=== PATIENT | male | born 1975 | race African-American/Black ===

== ENCOUNTER 2016-07-08 01:02 | Emergency (ER) | payer MEDICAID ==
[~2016-07-08] VITALS: Ht 177.8 cm; Wt 89.7 kg
[~2016-07-08 01:02] MED LIST: AMOX1TAB12 PO; ATEN25TA PO; CLIN300C93 PO; CYCL-259 PO; DIPH25CA61 PO; GABA-827 PO; HYDR-882 PO; HYDR25TA6 PO; OXYC-302 PO; OXYC5TAB3 PO; PRED10TA; SIMV20TA PO; SIMV20TA3 PO; WARF6TAB7 PO
[2016-07-08] MEDS ORDERED: PROMETHAZINE 25 MG/ML, 1ML ONE (01:51)
[2016-07-08] MEDS ORDERED: MORPHINE SULFATE 4 MG/ML, 1ML ONE ×2 (01:51→03:04)
[2016-07-08] MEDS ORDERED: ONDANSETRON 2MG/ML, 2ML ONE (01:52)
[2016-07-08] MEDS ORDERED: PROMETHAZINE 25 MG/ML, 1ML IM ONE (02:00)
[2016-07-08] MEDS ORDERED: SODIUM CHLORIDE 0.9% 1,000ML IVBOLUS ONE (02:00)
[2016-07-08] MEDS ORDERED: ONDANSETRON 2MG/ML, 2ML IVPush ONE (02:00)
[2016-07-08] MEDS: MORPHINE SULFATE 4 MG/ML, 1ML IVPush PRN ×2 (02:07→03:08)
[2016-07-08 02:22] LABS: HEMOGLOBIN 11.1 g/dL (13.7-18.0)
[2016-07-08 02:30] LABS: ASPARTATE AMINO TRANSFERASE 12 U/L (15-37); BLOOD UREA NITROGEN 11 mg/dL (7-18)
[2016-07-08 02:41] LABS: ANISOCYTOSIS 1+; POLYCHROMASIA 1+
[2016-07-08 02:42] LABS: HYPOCHROMIA 1+
[2016-07-08] MEDS ORDERED: DIPHENHYDRAMINE 25 MG CAPSULE ONE (03:04)
[2016-07-08] MEDS ORDERED: METOCLOPRAMIDE 5 MG/ML, 2ML ONE (03:05)
[2016-07-08] MEDS ORDERED: DIPHENHYDRAMINE 25 MG CAPSULE PO ONE (03:30)
[2016-07-08] MEDS ORDERED: METOCLOPRAMIDE 5 MG/ML, 2ML IVPush ONE (03:30)
[2016-07-08 05:29] VITALS: BP 138/92
== END 2016-07-08 05:32 | disposition home or self-care (01) ==
LOC: ED 05:26
DX: G43.019 Migraine without aura, intractable, without status migrainosus (principal); R10.84 Generalized abdominal pain; G89.29 Other chronic pain; I10 Essential (primary) hypertension; E78.5 Hyperlipidemia, unspecified; Z86.73 Personal history of transient ischemic attack (TIA), and cerebral infarction without residual deficits; Z88.8 Allergy status to other drugs, medicaments and biological substances; Z90.89 Acquired absence of other organs
CPT/HCPCS: 36415; 80053; 83690; 85025; 85610; 96361; 96372; 96374; 96375; 96376; 99284; J2405; J2550; J2765; J7030; Q0163

== ENCOUNTER 2016-07-12 22:30 | Emergency (ER) | payer MEDICAID ==
[~2016-07-12] VITALS: Ht 180.3 cm; Wt 90.3 kg
[2016-07-12] MEDS ORDERED: MORPHINE SULFATE 4 MG/ML, 1ML IVPush PRN (23:30)
[2016-07-12] MEDS ORDERED: SODIUM CHLORIDE 0.9% 1,000ML IVBOLUS ONE (23:30)
[2016-07-12] MEDS ORDERED: DIPHENHYDRAMINE 50 MG/ML, 1ML IVPush ONE (23:30)
[2016-07-12] MEDS ORDERED: METOCLOPRAMIDE 5 MG/ML, 2ML IVPush ONE (23:30)
[2016-07-13] MEDS ORDERED: METOCLOPRAMIDE 5 MG/ML, 2ML ONE (01:59)
[2016-07-13] MEDS ORDERED: DIPHENHYDRAMINE 50 MG/ML, 1ML ONE (01:59)
[2016-07-13] MEDS ORDERED: DEXAMETHASONE 4 MG/ML, 1ML ONE (02:23)
[2016-07-13] MEDS ORDERED: SODIUM CHLORIDE 0.9%, 500ML IVBOLUS ONE (02:30)
[2016-07-13] MEDS ORDERED: DEXAMETHASONE 4 MG/ML, 1ML IVPush ONE (02:30)
[2016-07-13 03:16] VITALS: BP 131/74
== END 2016-07-13 03:18 | disposition home or self-care (01) ==
LOC: ED 23:59
DX: G89.29 Other chronic pain (principal); G43.909 Migraine, unspecified, not intractable, without status migrainosus; R10.84 Generalized abdominal pain; E78.5 Hyperlipidemia, unspecified; I10 Essential (primary) hypertension; I11.9 Hypertensive heart disease without heart failure; I73.9 Peripheral vascular disease, unspecified
CPT/HCPCS: 96361; 96374; 96375; 99284; J1100; J1200; J2765; J7040

== ENCOUNTER 2016-07-24 19:36 | Emergency (ER) | payer MEDICAID ==
[~2016-07-24] VITALS: Ht 177.8 cm; Wt 90.1 kg
[2016-07-24 19:51] VITALS: BP 115/77
[2016-07-24] MEDS ORDERED: HYDROmorphone 1 MG/ML, 1ML ONE ×2 (20:48→21:59)
[2016-07-24] MEDS ORDERED: HYDROmorphone 1 MG/ML, 1ML IM ONE ×2 (21:00→22:00)
== END 2016-07-24 22:40 | disposition home or self-care (01) ==
LOC: ED 22:30
DX: S22.080A Wedge compression fracture of T11-T12 vertebra, initial encounter for closed fracture (principal); R55 Syncope and collapse; I10 Essential (primary) hypertension; E78.5 Hyperlipidemia, unspecified; G43.909 Migraine, unspecified, not intractable, without status migrainosus; I11.9 Hypertensive heart disease without heart failure; I73.9 Peripheral vascular disease, unspecified; F12.10 Cannabis abuse, uncomplicated; W18.39XA Other fall on same level, initial encounter; Y93.89 Activity, other specified; Y92.89 Other specified places as the place of occurrence of the external cause; Y99.8 Other external cause status; Z86.73 Personal history of transient ischemic attack (TIA), and cerebral infarction without residual deficits; Z87.891 Personal history of nicotine dependence
CPT/HCPCS: 72110; 72220; 73030; 93005; 96372; 99284; J1170

== ENCOUNTER 2016-07-30 23:53 | Emergency (ER) | payer MEDICAID ==
[~2016-07-30] VITALS: Ht 177.8 cm; Wt 91.4 kg
[2016-07-31] MEDS ORDERED: KETOROLAC 30 MG/1 ML IM ONE (01:00)
[2016-07-31] MEDS ORDERED: KETOROLAC 30 MG/1 ML ONE (01:03)
[2016-07-31 01:46] VITALS: BP 137/85
== END 2016-07-31 01:48 | disposition home or self-care (01) ==
LOC: ED 23:59
DX: M54.41 Lumbago with sciatica, right side (principal); E78.5 Hyperlipidemia, unspecified; I11.9 Hypertensive heart disease without heart failure; Z87.891 Personal history of nicotine dependence; Z86.73 Personal history of transient ischemic attack (TIA), and cerebral infarction without residual deficits; Z88.6 Allergy status to analgesic agent
CPT/HCPCS: 96372; 99283; J1885

== ENCOUNTER 2016-08-11 18:08 | Emergency (ER) | payer MEDICAID ==
[~2016-08-11] VITALS: Ht 177.8 cm; Wt 87.3 kg
[2016-08-11] MEDS ORDERED: SODIUM CHLORIDE FLUSH 10ML SYR IVF ONE (18:30)
[2016-08-11 18:55] LABS: HEMOGLOBIN 12.1 g/dL (13.7-18.0)
[2016-08-11] MEDS ORDERED: KETOROLAC 30 MG/1 ML IM ONE (19:00)
[2016-08-11] MEDS ORDERED: METHOCARBAMOL 750 MG TABLET PO ONE (19:00)
[2016-08-11 19:02] LABS: BLOOD UREA NITROGEN 16 mg/dL (7-18)
[2016-08-11 19:08] LABS: IS PT STATUS REG ER OR PRE ER? YES
[2016-08-11] MEDS ORDERED: KETOROLAC 30 MG/1 ML ONE (19:34)
[2016-08-11] MEDS ORDERED: METHOCARBAMOL 750 MG TABLET ONE (19:34)
[2016-08-11 20:10] VITALS: BP 130/91
== END 2016-08-11 20:13 | disposition home or self-care (01) ==
LOC: ED 20:00
DX: G43.909 Migraine, unspecified, not intractable, without status migrainosus (principal); I10 Essential (primary) hypertension; E78.5 Hyperlipidemia, unspecified; Z79.01 Long term (current) use of anticoagulants; Z88.8 Allergy status to other drugs, medicaments and biological substances; Z86.73 Personal history of transient ischemic attack (TIA), and cerebral infarction without residual deficits
CPT/HCPCS: 36415; 71010; 80048; 82040; 84484; 85025; 85610; 93005; 99285; J1885

== ENCOUNTER 2016-11-02 20:52 | Emergency (ER) | payer MEDICAID ==
[~2016-11-02] VITALS: Ht 177.8 cm; Wt 88.0 kg
[2016-11-02] MEDS ORDERED: ASPIRIN 81 MG TABLET CHEW PO ONE (21:30)
[2016-11-02] MEDS ORDERED: ASPIRIN 81 MG TABLET CHEW ONE (21:42)
[2016-11-02 21:47] VITALS: BP 115/82
[2016-11-02 22:07] LABS: BLOOD UREA NITROGEN 15 mg/dL (7-18)
[2016-11-02 22:12] LABS: DIFF TOTAL CELLS COUNTED 100 CELL DIFF; IS PT STATUS REG ER OR PRE ER? YES
[2016-11-02 22:16] LABS: ANISOCYTOSIS 1+; VERIFY COUNTS? YES
[2016-11-02 22:17] LABS: POLYCHROMASIA 1+
[2016-11-02] MEDS ORDERED: ONDANSETRON ODT 4 MG ONE (22:50)
[2016-11-02] MEDS ORDERED: KETOROLAC 30 MG/1 ML ONE (22:50)
[2016-11-02] MEDS ORDERED: DIPHENHYDRAMINE 25 MG CAPSULE ONE (22:50)
[2016-11-02] MEDS ORDERED: DIPHENHYDRAMINE 25 MG CAPSULE PO ONE (23:00)
[2016-11-02] MEDS ORDERED: KETOROLAC 30 MG/1 ML IM ONE (23:00)
[2016-11-02] MEDS ORDERED: ONDANSETRON ODT 4 MG PO ONE (23:00)
== END 2016-11-02 23:16 | disposition home or self-care (01) ==
LOC: ED 21:46
DX: Z76.0 Encounter for issue of repeat prescription (principal); R07.89 Other chest pain; E78.5 Hyperlipidemia, unspecified; I11.9 Hypertensive heart disease without heart failure; I73.9 Peripheral vascular disease, unspecified; G43.909 Migraine, unspecified, not intractable, without status migrainosus
CPT/HCPCS: 36415; 71010; 80048; 82040; 84484; 85025; 85610; 93005; 96372; 99285; J1885; Q0162; Q0163

== ENCOUNTER 2016-12-03 01:25 | Inpatient (IN) | payer MEDICAID ==
[~2016-12-03] VITALS: Ht 177.8 cm; Wt 84.0 kg
[2016-12-03] MEDS ORDERED: SODIUM CHLORIDE 0.9% 1,000ML IVBOLUS ONE (02:00)
[2016-12-03] MEDS ORDERED: ONDANSETRON 2MG/ML, 2ML IVPush ONE (02:00)
[2016-12-03] MEDS ORDERED: SODIUM CHLORIDE FLUSH 10ML SYR IVF ONE (02:00)
[2016-12-03] MEDS ORDERED: ONDANSETRON 2MG/ML, 2ML ONE (02:03)
[2016-12-03] MEDS ORDERED: MORPHINE SULFATE 4 MG/ML, 1ML ONE ×4 (02:03→13:41)
[2016-12-03] MEDS: MORPHINE SULFATE 4 MG/ML, 1ML IVPush PRN ×2 (02:42→07:52)
[2016-12-03 02:45] LABS: HEMATOCRIT 33.6 % (39.2-51.8); HEMOGLOBIN 11.1 g/dL (13.7-18.0); WHITE BLOOD COUNT 10.2 x10^3/uL (3.4-10)
[2016-12-03] MEDS ORDERED: ONDA4TAB10 PO (02:54)
[2016-12-03 02:55] LABS: BLOOD UREA NITROGEN 12 mg/dL (7-18)
[2016-12-03 02:58] LABS: ASPARTATE AMINO TRANSFERASE 30 U/L (15-37)
[2016-12-03] MEDS ORDERED: DIPHENHYDRAMINE 50 MG/ML, 1ML IVPush ONE ×2 (03:00→12:00)
[2016-12-03] MEDS ORDERED: DIPHENHYDRAMINE 50 MG/ML, 1ML ONE (03:07)
[2016-12-03] MEDS ORDERED: METRONIDAZOLE PMX 500MG/100ML 100 ML ONE (05:14)
[2016-12-03] MEDS ORDERED: METRONIDAZOLE PMX 500MG/100ML 100 ML IV ONE (05:30)
[2016-12-03] MEDS ORDERED: ACETAMINOPHEN 325 MG TABLET PO PRN (12:00)
[2016-12-03] MEDS ORDERED: METOCLOPRAMIDE 5 MG/ML, 2ML IVPush PRN (12:00)
[2016-12-03] MEDS ORDERED: PANTOPRAZOLE 80 MG in SODIUM CHLORIDE 0.9% 50 ML IV ONE (12:00)
[2016-12-03] MEDS ORDERED: PROMETHAZINE 25 MG/ML, 1ML IM PRN (12:00)
[2016-12-03 12:35] LABS: HEMATOCRIT 30.5 % (39.2-51.8); HEMOGLOBIN 10.1 g/dL (13.7-18.0)
[2016-12-03] MEDS: morphine SULFATE 10 MG/ML, 1ML IVPush PRN ×3 (13:50→23:47)
[2016-12-03] MEDS: PANTOPRAZOLE 80 MG in SODIUM CHLORIDE 0.9% 100 ML IV SCH ×2 (13:59→23:18)
[2016-12-03 14:45] VITALS: BP 134/62
[2016-12-03 14:57] VITALS: BP 134/62
[2016-12-03] MEDS: SODIUM CHLORIDE 0.9% 1,000 ML IV SCH ×2 (15:34→23:21)
[2016-12-03] MEDS: GABAPENTIN 400 MG CAPSULE PO SCH ×2 (16:18→20:24)
[2016-12-03] MEDS: DIPHENHYDRAMINE 25 MG CAPSULE PO SCH ×2 (16:18→20:24)
[2016-12-03] MEDS: HYDROcodone/APAP 5/325 TABLET PO PRN ×2 (16:18→20:24)
[2016-12-03] MEDS: CYCLOBENZAPRINE 10 MG TABLET PO SCH ×2 (16:19→20:24)
[2016-12-03 17:25] LABS: HEMATOCRIT 34.9 % (39.2-51.8); HEMOGLOBIN 11.3 g/dL (13.7-18.0)
[2016-12-03 19:53] VITALS: BP 102/69
[2016-12-03 23:41] LABS: HEMATOCRIT 31.4 % (39.2-51.8); HEMOGLOBIN 10.3 g/dL (13.7-18.0)
[2016-12-04 01:35] VITALS: BP 127/65
[2016-12-04] MEDS: HYDROcodone/APAP 5/325 TABLET PO PRN ×3 (04:18→20:04)
[2016-12-04] MEDS: DIPHENHYDRAMINE 25 MG CAPSULE PO SCH ×4 (05:29→21:02)
[2016-12-04 05:31] LABS: HEMATOCRIT 31.6 % (39.2-51.8); HEMOGLOBIN 10.4 g/dL (13.7-18.0); WHITE BLOOD COUNT 8.2 x10^3/uL (3.4-10)
[2016-12-04 06:15] LABS: DIFF TOTAL CELLS COUNTED 100 CELL DIFF
[2016-12-04 06:16] LABS: ANISOCYTOSIS 1+; ASPARTATE AMINO TRANSFERASE 17 U/L (15-37); BLOOD UREA NITROGEN 9 mg/dL (7-18); TOTAL IRON BINDING CAPACITY 298 mcg/dL (250-450); VERIFY COUNTS? YES
[2016-12-04 08:19] VITALS: BP 131/91
[2016-12-04] MEDS: GABAPENTIN 400 MG CAPSULE PO SCH ×3 (08:43→21:02)
[2016-12-04] MEDS: CYCLOBENZAPRINE 10 MG TABLET PO SCH ×3 (08:43→21:02)
[2016-12-04] MEDS: ATENOLOL 25 MG TABLET PO SCH (08:44)
[2016-12-04] MEDS: SODIUM CHLORIDE 0.9% 1,000 ML IV SCH ×3 (08:44→23:00)
[2016-12-04] MEDS: PANTOPRAZOLE 80 MG in SODIUM CHLORIDE 0.9% 100 ML IV SCH ×2 (10:08→18:55)
[2016-12-04 12:32] LABS: HEMATOCRIT 32.2 % (39.2-51.8); HEMOGLOBIN 10.9 g/dL (13.7-18.0)
[2016-12-04 13:46] VITALS: BP 132/90
[2016-12-04] MEDS: ONDANSETRON 2MG/ML, 2ML IVPush PRN (15:18)
[2016-12-04] MEDS ORDERED: WARFARIN 2 MG TABLET PO-COUM SCH (18:00)
[2016-12-04 19:23] VITALS: BP 161/102
[2016-12-04] MEDS ORDERED: ACETAMINOPHEN 325 MG TABLET PO PRN (19:30)
[2016-12-04] MEDS ORDERED: PROMETHAZINE 25 MG/ML, 1ML IM PRN (19:30)
[2016-12-04] MEDS ORDERED: METOCLOPRAMIDE 5 MG/ML, 2ML IVPush PRN (19:30)
[2016-12-05] MEDS: ONDANSETRON 2MG/ML, 2ML IVPush PRN (00:25)
[2016-12-05] MEDS: HYDROcodone/APAP 5/325 TABLET PO PRN ×3 (00:25→09:40)
[2016-12-05] MEDS: morphine SULFATE 10 MG/ML, 1ML IVPush PRN (00:25)
[2016-12-05 02:51] VITALS: BP 152/93
[2016-12-05] MEDS: PANTOPRAZOLE 80 MG in SODIUM CHLORIDE 0.9% 100 ML IV SCH (03:18)
[2016-12-05 06:01] LABS: BLOOD UREA NITROGEN 10 mg/dL (7-18)
[2016-12-05 06:10] LABS: HEMATOCRIT 31.7 % (39.2-51.8); HEMOGLOBIN 10.5 g/dL (13.7-18.0); WHITE BLOOD COUNT 9.6 x10^3/uL (3.4-10)
[2016-12-05] MEDS: DIPHENHYDRAMINE 25 MG CAPSULE PO SCH ×3 (06:25→16:00)
[2016-12-05] MEDS: SODIUM CHLORIDE 0.9% 1,000 ML IV SCH (06:25)
[2016-12-05 06:40] LABS: DIFF TOTAL CELLS COUNTED 100 CELL DIFF
[2016-12-05 06:46] VITALS: BP 151/99
[2016-12-05] MEDS ORDERED: ONDANSETRON ODT 4 MG PO PRN (07:00)
[2016-12-05 08:52] LABS: ANISOCYTOSIS 1+; VERIFY COUNTS? YES
[2016-12-05] MEDS ORDERED: OMEPRAZOLE 20 MG CAPSULE.DR PO SCH (09:00)
[2016-12-05] MEDS: GABAPENTIN 400 MG CAPSULE PO SCH ×2 (09:29→17:09)
[2016-12-05] MEDS: CYCLOBENZAPRINE 10 MG TABLET PO SCH ×2 (09:29→17:09)
[2016-12-05] MEDS: ATENOLOL 25 MG TABLET PO SCH (09:31)
[2016-12-05] MEDS ORDERED: OMEP-110 PO (15:18)
[2016-12-05] MEDS ORDERED: WARF6TAB7 PO (15:31)
[2016-12-05] MEDS ORDERED: WARFARIN 1 MG TABLET PO-COUM SCH (18:00)
== END 2016-12-05 17:00 | disposition home or self-care (01) | DRG 378 ==
LOC: ED 03:20 → EDIP 06:29 → 3NW 13:33
PROVIDERS: ADMIT Internal Medicine; ATTEND Internal Medicine
DX: K62.5 Hemorrhage of anus and rectum (principal); M35.2 Behcet's disease; D68.59 Other primary thrombophilia; K55.9 Vascular disorder of intestine, unspecified; K57.92 Diverticulitis of intestine, part unspecified, without perforation or abscess without bleeding; K86.2 Cyst of pancreas; D18.00 Hemangioma unspecified site; D53.9 Nutritional anemia, unspecified; E78.5 Hyperlipidemia, unspecified; F12.90 Cannabis use, unspecified, uncomplicated; F17.210 Nicotine dependence, cigarettes, uncomplicated; G43.109 Migraine with aura, not intractable, without status migrainosus; I10 Essential (primary) hypertension; I73.9 Peripheral vascular disease, unspecified; Z82.0 Family history of epilepsy and other diseases of the nervous system; Z79.52 Long term (current) use of systemic steroids; Z79.01 Long term (current) use of anticoagulants; Z79.899 Other long term (current) drug therapy; Z86.73 Personal history of transient ischemic attack (TIA), and cerebral infarction without residual deficits; Z90.49 Acquired absence of other specified parts of digestive tract; T38.0X5A Adverse effect of glucocorticoids and synthetic analogues, initial encounter; Y92.89 Other specified places as the place of occurrence of the external cause
CPT/HCPCS: 36415; 74177; 80048; 80053; 82607; 82746; 83540; 83550; 83690; 83735; 84100; 84443; 85014; 85018; 85025; 85610; 85730; 96361; 96365; 96375; 96376; J2405; C9113; J1200; J2270; J7030; J7512; Q0163

== ENCOUNTER 2016-12-21 00:37 | Emergency (ER) | payer MEDICAID ==
[~2016-12-21] VITALS: Ht 177.8 cm; Wt 86.8 kg
[~2016-12-21 00:37] MED LIST changes: +CLIN300C8 PO; -CLIN300C93 PO; +OMEP-110 PO; +ONDA4TAB10 PO
[2016-12-21 00:38] VITALS: BP 131/89
[2016-12-21] MEDS ORDERED: HYDROcodone/APAP 5/325 TABLET PO ONE (01:30)
[2016-12-21 01:44] LABS: HEMATOCRIT 34.8 % (39.2-51.8); HEMOGLOBIN 11.9 g/dL (13.7-18.0); WHITE BLOOD COUNT 13.5 x10^3/uL (3.4-10)
[2016-12-21] MEDS ORDERED: HYDROcodone/APAP 5/325 TABLET ONE (01:45)
[2016-12-21 02:05] LABS: DIFF TOTAL CELLS COUNTED 100 CELL DIFF
[2016-12-21 03:00] LABS: VERIFY COUNTS? YES
[2016-12-21 03:01] LABS: ANISOCYTOSIS 1+; SMUDGE CELLS 1+
== END 2016-12-21 02:59 ==
LOC: ED 01:22
DX: K64.4 Residual hemorrhoidal skin tags (principal); E78.5 Hyperlipidemia, unspecified; I11.9 Hypertensive heart disease without heart failure; Z86.73 Personal history of transient ischemic attack (TIA), and cerebral infarction without residual deficits; Z88.8 Allergy status to other drugs, medicaments and biological substances; Z88.6 Allergy status to analgesic agent
CPT/HCPCS: 36415; 85025; 85610; 99284

== ENCOUNTER 2016-12-22 18:50 | Inpatient (IN) | payer MEDICAID ==
[~2016-12-22] VITALS: Ht 177.8 cm; Wt 104.8 kg
[2016-12-22] MEDS ORDERED: SODIUM CHLORIDE 0.9% 1,000 ML IV ONE (19:29)
[2016-12-22] MEDS ORDERED: SODIUM CHLORIDE FLUSH 10ML SYR IVF ONE (19:30)
[2016-12-22 20:35] LABS: HEMATOCRIT 38.7 % (39.2-51.8); HEMOGLOBIN 12.6 g/dL (13.7-18.0); WHITE BLOOD COUNT 13.8 x10^3/uL (3.4-10)
[2016-12-22 20:45] LABS: BLOOD UREA NITROGEN 12 mg/dL (7-18)
[2016-12-22] MEDS ORDERED: MORPHINE SULFATE 4 MG/ML, 1ML IVPush PRN ×2 (22:00→23:00)
[2016-12-22 22:07] LABS: IS PT STATUS REG ER OR PRE ER? YES
[2016-12-22] MEDS ORDERED: MORPHINE SULFATE 4 MG/ML, 1ML ONE (22:46)
[2016-12-22] MEDS ORDERED: ONDANSETRON 2MG/ML, 2ML ONE (22:46)
[2016-12-22] MEDS ORDERED: ONDANSETRON 2MG/ML, 2ML IVPush PRN (23:00)
[2016-12-22] MEDS ORDERED: SODIUM CHLORIDE 0.9% 1,000 ML IV SCH (23:15)
[2016-12-23] VITALS (7 sets, daily range): BP systolic 110–130; BP diastolic 72–89
[2016-12-23] MEDS: MORPHINE SULFATE 4 MG/ML, 1ML IVPush PRN ×4 (02:55→23:56)
[2016-12-23] MEDS: DIPHENHYDRAMINE 25 MG CAPSULE PO PRN ×3 (02:56→23:55)
[2016-12-23 04:26] LABS: HEMOGLOBIN 11.4 g/dL (13.7-18.0); WHITE BLOOD COUNT 16.5 x10^3/uL (3.4-10)
[2016-12-23 04:39] LABS: BLOOD UREA NITROGEN 13 mg/dL (7-18)
[2016-12-23 04:46] LABS: IS PT STATUS REG ER OR PRE ER? NO
[2016-12-23] MEDS ORDERED: SODIUM CHLORIDE 0.9% 1,000 ML IV SCH (09:00)
[2016-12-23] MEDS: OMEPRAZOLE 20 MG CAPSULE.DR PO SCH ×2 (09:07→20:38)
[2016-12-23] MEDS: GABAPENTIN 400 MG CAPSULE PO SCH ×3 (09:08→20:38)
[2016-12-23] MEDS ORDERED: REGADENOSON 0.4 MG/5 ML SYRINGE ONE (09:31)
[2016-12-23] MEDS: ENOXAPARIN 100 MG/ML SQ SCH ×2 (11:41→23:55)
[2016-12-23 13:13] LABS: IS PT STATUS REG ER OR PRE ER? NO
[2016-12-23] MEDS ORDERED: WARFARIN 7.5 MG TABLET PO-COUM ONE (18:00)
[2016-12-24 01:10] VITALS: BP 126/85
[2016-12-24 06:54] VITALS: BP 123/84
[2016-12-24] MEDS ORDERED: CEFTRIAXONE PMX 2GM/50ML 50 ML IV SCH (09:00)
[2016-12-24 09:15] VITALS: BP 132/70
[2016-12-24 09:18] VITALS: BP_SYST 113; BP_SYST 132; BP_DIAS 80; BP_DIAS 93
[2016-12-24 09:25] VITALS: BP 118/76
[2016-12-24] MEDS: MORPHINE SULFATE 4 MG/ML, 1ML IVPush PRN ×2 (09:45→16:06)
[2016-12-24] MEDS: DIPHENHYDRAMINE 25 MG CAPSULE PO PRN ×2 (09:46→16:06)
[2016-12-24] MEDS: GABAPENTIN 400 MG CAPSULE PO SCH ×2 (09:47→16:08)
[2016-12-24] MEDS: OMEPRAZOLE 20 MG CAPSULE.DR PO SCH (09:48)
[2016-12-24] MEDS: ENOXAPARIN 100 MG/ML SQ SCH (12:14)
[2016-12-24 12:38] VITALS: BP 133/98
[2016-12-24] MEDS ORDERED: WARFARIN 7.5 MG TABLET PO-COUM ONE (18:00)
[2016-12-24] MEDS ORDERED: SIMVASTATIN 40 MG TABLET PO SCH (21:00)
== END 2016-12-24 18:30 | disposition left against medical advice (07) | DRG 871 ==
LOC: ED 21:08 → EDIP 22:42 → 5SO 12-23 00:30
PROVIDERS: ADMIT Hospitalist; ATTEND Hospitalist
DX: A41.9 Sepsis, unspecified organism (principal); N17.0 Acute kidney failure with tubular necrosis; I47.2 Ventricular tachycardia; N39.0 Urinary tract infection, site not specified; W19.XXXA Unspecified fall, initial encounter; I11.9 Hypertensive heart disease without heart failure; E78.5 Hyperlipidemia, unspecified; D50.9 Iron deficiency anemia, unspecified; D53.9 Nutritional anemia, unspecified; I25.10 Atherosclerotic heart disease of native coronary artery without angina pectoris; I25.2 Old myocardial infarction; I73.9 Peripheral vascular disease, unspecified; Y92.002 Bathroom of unspecified non-institutional (private) residence as the place of occurrence of the external cause; R07.9 Chest pain, unspecified; Z53.21 Procedure and treatment not carried out due to patient leaving prior to being seen by health care provider; Z86.73 Personal history of transient ischemic attack (TIA), and cerebral infarction without residual deficits
CPT/HCPCS: 36415; 70450; 71020; 78452; 80048; 80061; 80307; 81001; 82040; 83735; 83880; 84100; 84484; 85025; 85610; 87040; 87086; 93005; 93017; 93306; 93880; 96374; 96375; J0696; J1650; J2405; J2785; A9502; C9898; J7030; J7512; Q0163

== ENCOUNTER 2017-01-04 22:50 | Emergency (ER) | payer MEDICAID ==
[~2017-01-04] VITALS: Ht 177.8 cm; Wt 88.8 kg
[2017-01-05] MEDS ORDERED: MORPHINE SULFATE 4 MG/ML, 1ML IVPush PRN
[2017-01-05] MEDS ORDERED: SODIUM CHLORIDE FLUSH 10ML SYR IVF ONE
[2017-01-05] MEDS ORDERED: ASPIRIN 81 MG TABLET CHEW PO ONE
[2017-01-05 00:01] LABS: HEMOGLOBIN 11.1 g/dL (13.7-18.0); WHITE BLOOD COUNT 8.5 x10^3/uL (3.4-10)
[2017-01-05 00:14] LABS: ASPARTATE AMINO TRANSFERASE 17 U/L (15-37); BLOOD UREA NITROGEN 15 mg/dL (7-18)
[2017-01-05] MEDS ORDERED: MORPHINE SULFATE 4 MG/ML, 1ML ONE (00:18)
[2017-01-05] MEDS ORDERED: ASPIRIN 81 MG TABLET CHEW ONE (00:18)
[2017-01-05 00:20] LABS: IS PT STATUS REG ER OR PRE ER? YES
[2017-01-05] MEDS ORDERED: HYDROcodone/APAP 5/325 TABLET ONE (02:41)
[2017-01-05] MEDS ORDERED: HYDROcodone/APAP 5/325 TABLET PO ONE (03:00)
[2017-01-05 03:27] LABS: IS PT STATUS REG ER OR PRE ER? YES
[2017-01-05 03:45] VITALS: BP 125/81
== END 2017-01-05 03:48 | disposition home or self-care (01) ==
LOC: ED 01-05 01:49
DX: R07.89 Other chest pain (principal); E78.5 Hyperlipidemia, unspecified; I73.9 Peripheral vascular disease, unspecified; Z79.01 Long term (current) use of anticoagulants; Z79.82 Long term (current) use of aspirin; G43.909 Migraine, unspecified, not intractable, without status migrainosus; I11.9 Hypertensive heart disease without heart failure
CPT/HCPCS: 36415; 71010; 80053; 83690; 84484; 85025; 85610; 85730; 93005; 96374

== ENCOUNTER 2017-04-28 11:42 | Emergency (ER) | payer MEDICAID ==
[~2017-04-28] VITALS: Ht 177.8 cm; Wt 83.1 kg
[2017-04-28] MEDS ORDERED: SODIUM CHLORIDE 0.9% 1,000 ML IV ONE (13:18)
[2017-04-28] MEDS ORDERED: ONDANSETRON 2MG/ML, 2ML IVPush ONE (13:30)
[2017-04-28] MEDS ORDERED: SODIUM CHLORIDE FLUSH 10ML SYR IVF ONE (13:30)
[2017-04-28] MEDS ORDERED: ASPIRIN 81 MG TABLET CHEW PO ONE (13:30)
[2017-04-28] MEDS ORDERED: ONDANSETRON 2MG/ML, 2ML ONE (13:36)
[2017-04-28] MEDS ORDERED: NITROGLYCERIN SINGLE TAB 0.4 MG SL ONE (13:36)
[2017-04-28] MEDS ORDERED: ASPIRIN 81 MG TABLET CHEW ONE (13:36)
[2017-04-28] MEDS: NITROGLYCERIN SINGLE TAB 0.4 MG SL PRN ×3 (13:51→14:05)
[2017-04-28] MEDS ORDERED: MORPHINE SULFATE 4 MG/ML, 1ML IVPush PRN (14:00)
[2017-04-28 14:05] LABS: MEAN CORPUSCULAR HEMOGLOBIN 37.4 pg (27.5-34.5); MEAN CORPUSCULAR HGB CONC 33.7 g/dL (33.2-36.2); MEAN CORPUSCULAR VOLUME 111.1 fL (81-97); MEAN PLATELET VOLUME 6.6 fL (7.4-10.4); PLATELET COUNT 263 x10^3/uL (130-400); RED BLOOD COUNT 3.18 x10^6/uL (4.38-5.82); RED CELL DISTRIBUTION WIDTH 16.8 % (9.4-14.8)
[2017-04-28] MEDS ORDERED: MORPHINE SULFATE 4 MG/ML, 1ML ONE ×2 (14:07→14:51)
[2017-04-28] MEDS ORDERED: DIPHENHYDRAMINE 50 MG/ML, 1ML ONE (14:07)
[2017-04-28 14:12] LABS: ALBUMIN 3.4 g/dL (3.4-5.0); ANION GAP 8 mmol/L (5-15); CALCIUM 8.7 mg/dL (8.5-10.1); CHLORIDE 107 mmol/L (98-107); CREATININE 1.02 mg/dL (0.7-1.3)
[2017-04-28 14:25] LABS: INTERNATIONAL NORMALIZED RATIO 2.81 (0.93-1.1); PROTHROMBIN TIME 28.6 Seconds (9.6-11.5)
[2017-04-28] MEDS ORDERED: DIPHENHYDRAMINE 50 MG/ML, 1ML IVPush ONE (14:30)
[2017-04-28 15:06] LABS: MD YES
[2017-04-28 15:09] LABS: LYMPH#(MANUAL) 1.77 x10^3/uL (1-3.4); LYMPHS% (MANUAL) 23 % (22-44); MONOS#(MANUAL) 0.39 x10^3/uL (0.3-2.7); MONOS% (MANUAL) 5 % (2-9); REACTIVE LYMPHS # (MANUAL) 0.23 x10^3/uL (0-0); REACTIVE LYMPHS % (MANUAL) 3 % (0-0); SEG#(MANUAL) 5.31 x10^3/uL (1.8-6.8); SEGS% (MANUAL) 69 % (42-75)
[2017-04-28 15:11] LABS: <PLATELET ESTIMATE> ADEQUATE; POLYCHROMASIA 1+; SMALL PLATELETS 1+
[2017-04-28 15:16] VITALS: BP 107/68
== END 2017-04-28 16:54 | disposition home or self-care (01) ==
LOC: ED 16:13
DX: R07.89 Other chest pain (principal); I10 Essential (primary) hypertension; Z87.891 Personal history of nicotine dependence
CPT/HCPCS: 36415; 71045; 80048; 82040; 83880; 84484; 85025; 85610; 85730; 93005; 96361; 96374; 96375; 99285; J1200; J2405; J7030

== ENCOUNTER 2017-05-02 12:14 | Emergency (ER) | payer MEDICAID ==
[~2017-05-02] VITALS: Ht 179.1 cm; Wt 88.0 kg
[2017-05-02] MEDS ORDERED: ALBUTEROL SULFATE 2.5 MG/3 ML ONE (12:52)
[2017-05-02] MEDS ORDERED: SODIUM CHLORIDE FLUSH 10ML SYR IVF ONE (13:00)
[2017-05-02] MEDS ORDERED: ALBUTEROL SULFATE 2.5 MG/3 ML NPPB ONE (13:00)
[2017-05-02] MEDS ORDERED: methylPREDNISolone SOD SUCC 125 MG/2 ML IVP ONE (13:00)
[2017-05-02] MEDS ORDERED: SODIUM CHLORIDE 0.9% 1,000ML IVBOLUS ONE (13:00)
[2017-05-02] MEDS ORDERED: methylPREDNISolone SOD SUCC 125 MG/2 ML ONE (13:40)
[2017-05-02 13:45] LABS: INTERNATIONAL NORMALIZED RATIO 2.68 (0.93-1.1); PROTHROMBIN TIME 27.3 Seconds (9.6-11.5)
[2017-05-02] MEDS ORDERED: ACETAMINOPHEN 500 MG TABLET ONE (13:48)
[2017-05-02 13:50] LABS: ALANINE AMINOTRANSFERASE 23 U/L (12-78); ALBUMIN 3.1 g/dL (3.4-5.0); ANION GAP 8 mmol/L (5-15); CALCIUM 8.5 mg/dL (8.5-10.1); CHLORIDE 105 mmol/L (98-107); CREATININE 1.16 mg/dL (0.7-1.3)
[2017-05-02 13:52] LABS: ALKALINE PHOSPHATASE 51 U/L (45-117); BILIRUBIN,TOTAL 0.7 mg/dL (0.2-1.0); TOTAL PROTEIN 7.7 g/dL (6.4-8.2)
[2017-05-02 14:00] LABS: RAPID INFLUENZA A Negative (Negative); RAPID INFLUENZA B Negative (Negative)
[2017-05-02 14:14] LABS: BASOPHILS # (AUTO) 0.02 x10^3/uL (0-0.1); BASOPHILS % (AUTO) 0 % (0-1); EOSINOPHILS # (AUTO) 0.01 x10^3/uL (0-0.4); EOSINOPHILS % (AUTO) 0 % (1-7); LYMPHOCYTES # (AUTO) 7.65 x10^3/uL (1-3.4); LYMPHOCYTES % (AUTO) 40 % (22-44); MD MORPH REVIEW ONLY; MEAN CORPUSCULAR HEMOGLOBIN 37.3 pg (27.5-34.5); MEAN CORPUSCULAR HGB CONC 33.9 g/dL (33.2-36.2); MEAN PLATELET VOLUME 6.5 fL (7.4-10.4); MONOCYTES # (AUTO) 0.77 x10^3/uL (0.2-0.8); MONOCYTES % (AUTO) 4 % (2-9); NEUTROPHILS # (AUTO) 10.61 x10^3/uL (1.8-6.8); NEUTROPHILS % (AUTO) 56 % (42-75); PLATELET COUNT 239 x10^3/uL (130-400); RED BLOOD COUNT 3.33 x10^6/uL (4.38-5.82); RED CELL DISTRIBUTION WIDTH 16.6 % (9.4-14.8)
[2017-05-02 14:18] LABS: POLYCHROMASIA 1+
[2017-05-02 14:19] LABS: <PLATELET ESTIMATE> ADEQUATE; SMALL PLATELETS 1+; SMUDGE CELLS 1+
[2017-05-02] MEDS ORDERED: ACETAMINOPHEN 325 MG TABLET PO ONE (14:30)
[2017-05-02] MEDS ORDERED: CEFTRIAXONE PMX 1GM/50ML 50 ML IV ONE (14:30)
[2017-05-02] MEDS ORDERED: AZITHROMYCIN 500 MG TABLET PO ONE (14:30)
[2017-05-02] MEDS ORDERED: CEFTRIAXONE PMX 1GM/50ML 50 ML ONE (14:32)
[2017-05-02] MEDS ORDERED: AZITHROMYCIN 250 MG TABLET ONE (14:33)
[2017-05-02] MEDS ORDERED: SODIUM CHLORIDE 0.9%, 500ML IVBOLUS ONE (16:30)
[2017-05-02 16:36] VITALS: BP 107/76
[2017-05-02] MEDS ORDERED: KETOROLAC 30 MG/1 ML ONE (17:37)
[2017-05-02] MEDS ORDERED: HYDROcodone/APAP 5/325 TABLET ONE (17:43)
[2017-05-02] MEDS ORDERED: KETOROLAC 30 MG/1 ML IVPush ONE (18:00)
[2017-05-02] MEDS ORDERED: HYDROcodone/APAP 5/325 TABLET PO ONE (18:00)
== END 2017-05-02 15:45 | disposition home or self-care (01) ==
LOC: ED 15:39
DX: J20.8 Acute bronchitis due to other specified organisms (principal); B96.89 Other specified bacterial agents as the cause of diseases classified elsewhere; E86.0 Dehydration; I11.9 Hypertensive heart disease without heart failure; G43.909 Migraine, unspecified, not intractable, without status migrainosus; E78.5 Hyperlipidemia, unspecified; Z90.49 Acquired absence of other specified parts of digestive tract
CPT/HCPCS: 36415; 71045; 80053; 83605; 85025; 85610; 87040; 87400; 93005; 94640; 96361; 96365; 96375; 99285; J0696; J2930; J7030; J7040

== ENCOUNTER 2017-05-12 03:19 | Emergency (ER) | payer MEDICAID ==
[~2017-05-12] VITALS: Ht 177.8 cm; Wt 85.0 kg
[2017-05-12] MEDS ORDERED: SODIUM CHLORIDE 0.9% 1,000ML IVBOLUS ONE (04:00)
[2017-05-12] MEDS ORDERED: SODIUM CHLORIDE FLUSH 10ML SYR IVF ONE (04:00)
[2017-05-12] MEDS ORDERED: MORPHINE SULFATE 4 MG/ML, 1ML IVPush PRN (04:00)
[2017-05-12] MEDS ORDERED: ONDANSETRON 2MG/ML, 2ML IVPush ONE (04:00)
[2017-05-12 04:17] LABS: MEAN CORPUSCULAR HEMOGLOBIN 37.9 pg (27.5-34.5); MEAN CORPUSCULAR HGB CONC 34.2 g/dL (33.2-36.2); MEAN CORPUSCULAR VOLUME 110.7 fL (81-97); MEAN PLATELET VOLUME 6.2 fL (7.4-10.4); PLATELET COUNT 303 x10^3/uL (130-400); RED BLOOD COUNT 2.78 x10^6/uL (4.38-5.82); RED CELL DISTRIBUTION WIDTH 16.3 % (9.4-14.8)
[2017-05-12 04:19] LABS: ALBUMIN 3.1 g/dL (3.4-5.0); ANION GAP 9 mmol/L (5-15); CALCIUM 8.7 mg/dL (8.5-10.1); CHLORIDE 109 mmol/L (98-107); CREATININE 1.03 mg/dL (0.7-1.3)
[2017-05-12] MEDS ORDERED: ONDANSETRON 2MG/ML, 2ML ONE (04:20)
[2017-05-12] MEDS ORDERED: MORPHINE SULFATE 4 MG/ML, 1ML ONE (04:20)
[2017-05-12 04:24] LABS: TROPONIN I < 0.015 ng/mL (0.000-0.045)
[2017-05-12 04:51] LABS: MD YES
[2017-05-12 04:59] LABS: BASOS#(MANUAL) 0.09 x10^3/uL (0-0.1); BASOS% (MANUAL) 1 % (0-1); EOS#(MANUAL) 0.09 x10^3/uL (0.0-0.4); EOS% (MANUAL) 1 % (1-7); LYMPH#(MANUAL) 2.06 x10^3/uL (1-3.4); LYMPHS% (MANUAL) 24 % (22-44); METAMYELOCYTES# (MANUAL) 0.09 x10^3/uL (0-0); METAMYELOCYTES% (MANUAL) 1 % (0-1); MONOS#(MANUAL) 0.26 x10^3/uL (0.3-2.7); MONOS% (MANUAL) 3 % (2-9); NRBC % (MANUAL) 1 % (0-1); REACTIVE LYMPHS # (MANUAL) 1.55 x10^3/uL (0-0); REACTIVE LYMPHS % (MANUAL) 18 % (0-0); SEG#(MANUAL) 4.47 x10^3/uL (1.8-6.8); SEGS% (MANUAL) 52 % (42-75)
[2017-05-12 05:00] LABS: <PLATELET ESTIMATE> ADEQUATE; ANISOCYTOSIS 1+; POLYCHROMASIA 1+; SMALL PLATELETS 1+; SMUDGE CELLS 1+
[2017-05-12 05:14] VITALS: BP 120/80
== END 2017-05-12 05:16 | disposition home or self-care (01) ==
LOC: ED 05:01
DX: R07.2 Precordial pain (principal); Z72.9 Problem related to lifestyle, unspecified; I11.9 Hypertensive heart disease without heart failure; G43.909 Migraine, unspecified, not intractable, without status migrainosus; Z90.49 Acquired absence of other specified parts of digestive tract
CPT/HCPCS: 36415; 71045; 80048; 82040; 84484; 85025; 93005; 96361; 96374; 96375; 99285; J2405; J7030

== ENCOUNTER 2017-09-12 20:41 | Emergency (ER) | payer MEDICAID ==
[~2017-09-12] VITALS: Ht 177.8 cm; Wt 76.4 kg
[~2017-09-12 20:41] MED LIST changes: +WARF6TAB47 PO; -WARF6TAB7 PO
[2017-09-12 20:42] VITALS: BP 115/81
== END 2017-09-12 21:50 | disposition home or self-care (01) ==
LOC: ED 21:30
DX: M35.2 Behcet's disease (principal); I10 Essential (primary) hypertension; E78.5 Hyperlipidemia, unspecified; F17.200 Nicotine dependence, unspecified, uncomplicated; Z76.0 Encounter for issue of repeat prescription; Z48.02 Encounter for removal of sutures; Z86.711 Personal history of pulmonary embolism; Z90.49 Acquired absence of other specified parts of digestive tract; Z88.8 Allergy status to other drugs, medicaments and biological substances; Z86.73 Personal history of transient ischemic attack (TIA), and cerebral infarction without residual deficits
CPT/HCPCS: 99283

== ENCOUNTER 2017-09-28 21:55 | Emergency (ER) | payer MEDICAID ==
[~2017-09-28] VITALS: Ht 177.8 cm; Wt 74.5 kg
[2017-09-29] MEDS ORDERED: SODIUM CHLORIDE FLUSH 10ML SYR IVF ONE
[2017-09-29 00:10] LABS: MEAN CORPUSCULAR HEMOGLOBIN 36.9 pg (27.5-34.5); MEAN CORPUSCULAR HGB CONC 33.7 g/dL (33.2-36.2); MEAN CORPUSCULAR VOLUME 109.4 fL (81-97); MEAN PLATELET VOLUME 6.4 fL (7.4-10.4); PLATELET COUNT 271 x10^3/uL (130-400); RED BLOOD COUNT 3.01 x10^6/uL (4.38-5.82); RED CELL DISTRIBUTION WIDTH 17.4 % (9.4-14.8)
[2017-09-29 00:22] LABS: ALBUMIN 3.2 g/dL (3.4-5.0); ANION GAP 9 mmol/L (5-15); CALCIUM 8.1 mg/dL (8.5-10.1); CHLORIDE 111 mmol/L (98-107); CREATININE 1.08 mg/dL (0.7-1.3)
[2017-09-29 00:24] LABS: INTERNATIONAL NORMALIZED RATIO 2.92 (0.93-1.1); PROTHROMBIN TIME 29.5 Seconds (9.6-11.5)
[2017-09-29 00:26] LABS: MD YES
[2017-09-29 00:28] LABS: LYMPH#(MANUAL) 6.85 x10^3/uL (1-3.4); LYMPHS% (MANUAL) 64 % (22-44); MONOS#(MANUAL) 0.11 x10^3/uL (0.3-2.7); MONOS% (MANUAL) 1 % (2-9); SEG#(MANUAL) 3.75 x10^3/uL (1.8-6.8); SEGS% (MANUAL) 35 % (42-75)
[2017-09-29 00:29] LABS: <PLATELET ESTIMATE> ADEQUATE; ANISOCYTOSIS 1+; POLYCHROMASIA 1+; SMALL PLATELETS 1+
[2017-09-29 00:31] LABS: SMUDGE CELLS 1+
[2017-09-29 02:13] VITALS: BP 110/76
== END 2017-09-29 02:15 | disposition home or self-care (01) ==
LOC: ED 22:33
DX: L03.116 Cellulitis of left lower limb (principal); S80.212A Abrasion, left knee, initial encounter; S80.812A Abrasion, left lower leg, initial encounter; G43.909 Migraine, unspecified, not intractable, without status migrainosus; I11.9 Hypertensive heart disease without heart failure; Z79.01 Long term (current) use of anticoagulants; Z90.49 Acquired absence of other specified parts of digestive tract; W45.8XXA Other foreign body or object entering through skin, initial encounter; Y93.89 Activity, other specified; Y99.8 Other external cause status; Y92.89 Other specified places as the place of occurrence of the external cause
CPT/HCPCS: 36415; 80048; 82040; 83605; 84145; 85025; 85610; 85730; 87040; 99285

== ENCOUNTER 2017-10-05 16:56 | Inpatient (IN) | payer MEDICAID ==
[~2017-10-05] VITALS: Ht 179.1 cm; Wt 79.3 kg
[2017-10-05 17:29] LABS: MEAN CORPUSCULAR HEMOGLOBIN 37.2 pg (27.5-34.5); MEAN CORPUSCULAR HGB CONC 34.3 g/dL (33.2-36.2); MEAN CORPUSCULAR VOLUME 108.3 fL (81-97); MEAN PLATELET VOLUME 6.3 fL (7.4-10.4); PLATELET COUNT 280 x10^3/uL (130-400); RED BLOOD COUNT 2.95 x10^6/uL (4.38-5.82); RED CELL DISTRIBUTION WIDTH 17.4 % (9.4-14.8)
[2017-10-05 17:35] LABS: INTERNATIONAL NORMALIZED RATIO 4.16 (0.93-1.1); PROTHROMBIN TIME 41.7 Seconds (9.6-11.5)
[2017-10-05 17:56] LABS: BASOPHILS # (AUTO) 0.01 x10^3/uL (0-0.1); BASOPHILS % (AUTO) 0 % (0-1); EOSINOPHILS % (AUTO) 0 % (1-7); LYMPHOCYTES # (AUTO) 2.78 x10^3/uL (1-3.4); LYMPHOCYTES % (AUTO) 35 % (22-44); MONOCYTES # (AUTO) 0.05 x10^3/uL (0.2-0.8); MONOCYTES % (AUTO) 1 % (2-9); NEUTROPHILS # (AUTO) 5.15 x10^3/uL (1.8-6.8); NEUTROPHILS % (AUTO) 64 % (42-75)
[2017-10-05 17:57] LABS: MD SCAN
[2017-10-05] MEDS ORDERED: WARF6TAB PO (18:13)
[2017-10-05] MEDS ORDERED: DIPHENHYDRAMINE 50 MG/ML, 1ML IVPush ONE (18:30)
[2017-10-05] MEDS ORDERED: METOCLOPRAMIDE 5 MG/ML, 2ML IVPush ONE (18:30)
[2017-10-05] MEDS ORDERED: POLYETHYLENE GLYCOL 17 GM PACKET PO PRN (19:00)
[2017-10-05] MEDS ORDERED: CYCLOBENZAPRINE 10 MG TABLET PO PRN (19:00)
[2017-10-05] MEDS ORDERED: ONDANSETRON 2MG/ML, 2ML IVPush PRN (19:00)
[2017-10-05] MEDS ORDERED: SENNA/DOCUSATE TABLET PO PRN (19:00)
[2017-10-05] MEDS ORDERED: BISACODYL 10 MG SUPP PR PRN (19:00)
[2017-10-05] MEDS ORDERED: ACETAMINOPHEN 650 MG/20.3 ML UDC PO PRN (19:00)
[2017-10-05 19:45] LABS: FOLATE LEVEL 9.2 ng/mL (3.1-17.5)
[2017-10-05 20:00] VITALS: BP 114/73
[2017-10-05] MEDS: morphine SULFATE 10 MG/ML, 1ML IVPush PRN (20:23)
[2017-10-05] MEDS: GABAPENTIN 400 MG CAPSULE PO SCH (20:24)
[2017-10-05 20:42] VITALS: BP 114/73
[2017-10-05] MEDS ORDERED: ATORVASTATIN 40 MG TABLET PO SCH (21:00)
[2017-10-06 00:21] VITALS: BP 116/73
[2017-10-06] MEDS: morphine SULFATE 10 MG/ML, 1ML IVPush PRN ×3 (00:31→09:11)
[2017-10-06 02:53] VITALS: BP 101/68
[2017-10-06 04:53] VITALS: BP 117/75
[2017-10-06 05:56] LABS: MEAN CORPUSCULAR HEMOGLOBIN 36.9 pg (27.5-34.5); MEAN CORPUSCULAR HGB CONC 33.9 g/dL (33.2-36.2); MEAN PLATELET VOLUME 6.7 fL (7.4-10.4); PLATELET COUNT 240 x10^3/uL (130-400); RED BLOOD COUNT 2.74 x10^6/uL (4.38-5.82); RED CELL DISTRIBUTION WIDTH 18.1 % (9.4-14.8)
[2017-10-06 06:05] LABS: INTERNATIONAL NORMALIZED RATIO 3.74 (0.93-1.1); PROTHROMBIN TIME 37.5 Seconds (9.6-11.5)
[2017-10-06 06:09] LABS: CHLORIDE 111 mmol/L (98-107)
[2017-10-06 06:22] LABS: ALANINE AMINOTRANSFERASE 20 U/L (12-78); ALBUMIN 2.7 g/dL (3.4-5.0); ALKALINE PHOSPHATASE 45 U/L (45-117); ANION GAP 7 mmol/L (5-15); BILIRUBIN,TOTAL 0.6 mg/dL (0.2-1.0); CALCIUM 8.3 mg/dL (8.5-10.1); CHOL/HDL RATIO 4.7; CHOLESTEROL, TOTAL 166 mg/dL (140-239); CREATININE 0.84 mg/dL (0.7-1.3); HDL CHOL % 21 % (26-37); HDL CHOLESTEROL (DIRECT) 35 mg/dL (40-60); LDL CHOLESTEROL,CALCULATED 85 mg/dL (54-169); LDL/HDL RATIO 2.4 (0.5-3.0); TOTAL PROTEIN 6.2 g/dL (6.4-8.2); TRIGLYCERIDES 230 mg/dL (50-200); VLDL CHOLESTEROL 46 mg/dL (0-25)
[2017-10-06 06:38] LABS: BASOPHILS # (AUTO) 0.03 x10^3/uL (0-0.1); BASOPHILS % (AUTO) 0 % (0-1); EOSINOPHILS # (AUTO) 0.02 x10^3/uL (0-0.4); EOSINOPHILS % (AUTO) 0 % (1-7); LYMPHOCYTES # (AUTO) 5.69 x10^3/uL (1-3.4); LYMPHOCYTES % (AUTO) 67 % (22-44); MD SCAN; MONOCYTES # (AUTO) 0.75 x10^3/uL (0.2-0.8); MONOCYTES % (AUTO) 9 % (2-9); NEUTROPHILS # (AUTO) 2.06 x10^3/uL (1.8-6.8); NEUTROPHILS % (AUTO) 24 % (42-75)
[2017-10-06 06:55] VITALS: BP 120/81
[2017-10-06] MEDS: GABAPENTIN 400 MG CAPSULE PO SCH ×2 (07:51→17:10)
[2017-10-06] MEDS ORDERED: ATENOLOL 25 MG TABLET PO SCH (09:00)
[2017-10-06] MEDS ORDERED: CYANOCOBALAMIN 1,000 MCG TABLET PO SCH (09:00)
[2017-10-06 12:42] VITALS: BP 123/84
[2017-10-06 15:40] LABS: AMPHETAMINE SCREEN, URINE Negative (Negative); BARBITURATE SCREEN, URINE Negative (Negative); BENZODIAZEPINE SCREEN, URINE Negative (Negative); CANNABINOID SCREEN, URINE Positive (Negative); COCAINE SCREEN, URINE Negative (Negative); METHADONE SCREEN, URINE Negative (Negative); OPIATE SCREEN, URINE Positive (Negative)
[2017-10-06] MEDS ORDERED: methylPREDNISolone SOD SUCC 40 MG/ML IV SCH (18:00)
[2017-10-06] MEDS ORDERED: WARFARIN 5 MG TABLET PO-COUM SCH (18:00)
== END 2017-10-06 18:13 | disposition left against medical advice (07) | DRG 69 ==
LOC: ED 18:05 → EDIP 18:06 → ED 18:18 → 4WST 19:21
PROVIDERS: ADMIT Internal Medicine; ATTEND Internal Medicine
DX: G45.9 Transient cerebral ischemic attack, unspecified (principal); D68.69 Other thrombophilia; M35.2 Behcet's disease; E78.5 Hyperlipidemia, unspecified; D53.9 Nutritional anemia, unspecified; G43.109 Migraine with aura, not intractable, without status migrainosus; F12.90 Cannabis use, unspecified, uncomplicated; G89.29 Other chronic pain; D89.9 Disorder involving the immune mechanism, unspecified; I07.1 Rheumatic tricuspid insufficiency; I10 Essential (primary) hypertension; Z53.21 Procedure and treatment not carried out due to patient leaving prior to being seen by health care provider; G43.C0 Periodic headache syndromes in child or adult, not intractable; I73.9 Peripheral vascular disease, unspecified; Z72.0 Tobacco use; Z76.5 Malingerer [conscious simulation]; Z79.01 Long term (current) use of anticoagulants; Z86.73 Personal history of transient ischemic attack (TIA), and cerebral infarction without residual deficits; Z90.49 Acquired absence of other specified parts of digestive tract; Z88.8 Allergy status to other drugs, medicaments and biological substances
CPT/HCPCS: 36415; 70450; 70551; 80047; 80053; 80061; 80307; 82607; 82746; 85025; 85610; 85730; 93005; 93306; 93880; 99291; J2270; J7512

== ENCOUNTER 2017-11-25 23:42 | Inpatient (IN) | payer MEDICAID ==
[~2017-11-25] VITALS: Ht 180.3 cm; Wt 77.3 kg
[~2017-11-25 23:42] MED LIST changes: +WARF6TAB PO
[2017-11-26] MEDS ORDERED: LIDOCAINE 2%, 10ML INFIL ONE (00:30)
[2017-11-26] MEDS ORDERED: morphine SULFATE 10 MG/ML, 1ML IVPush ONE ×2 (00:30→01:30)
[2017-11-26] MEDS ORDERED: SODIUM CHLORIDE FLUSH 10ML SYR IVF ONE (00:30)
[2017-11-26] MEDS ORDERED: CLINDAMYCIN PMX 900MG/50ML 50 ML IV ONE (00:30)
[2017-11-26] MEDS ORDERED: SODIUM CHLORIDE 0.9% 1,000ML IVBOLUS ONE (00:30)
[2017-11-26] MEDS ORDERED: LIDOCAINE-MPF 2%, 2ML ONE (00:40)
[2017-11-26] MEDS ORDERED: CLINDAMYCIN PMX 900MG/50ML 50 ML ONE (00:41)
[2017-11-26] MEDS ORDERED: MORPHINE SULFATE 4 MG/ML, 1ML ONE ×2 (00:41→01:16)
[2017-11-26 00:53] LABS: MEAN CORPUSCULAR HEMOGLOBIN 37.2 pg (27.5-34.5); MEAN CORPUSCULAR HGB CONC 33.9 g/dL (33.2-36.2); MEAN CORPUSCULAR VOLUME 109.8 fL (81-97); MEAN PLATELET VOLUME 6.4 fL (7.4-10.4); PLATELET COUNT 255 x10^3/uL (130-400); RED BLOOD COUNT 3.18 x10^6/uL (4.38-5.82); RED CELL DISTRIBUTION WIDTH 16.6 % (9.4-14.8)
[2017-11-26 00:57] LABS: ALANINE AMINOTRANSFERASE 23 U/L (12-78); ALBUMIN 3.3 g/dL (3.4-5.0); ANION GAP 6 mmol/L (5-15); CALCIUM 8.8 mg/dL (8.5-10.1); CHLORIDE 104 mmol/L (98-107); CREATININE 1.24 mg/dL (0.7-1.3)
[2017-11-26] MEDS ORDERED: LIDOCAINE 1%-EPI 1:100K, 30ML ONE (00:58)
[2017-11-26 00:59] LABS: ALKALINE PHOSPHATASE 73 U/L (45-117); BILIRUBIN,TOTAL 0.8 mg/dL (0.2-1.0); TOTAL PROTEIN 8.3 g/dL (6.4-8.2)
[2017-11-26 01:00] LABS: INTERNATIONAL NORMALIZED RATIO 2.21 (0.93-1.1); PROTHROMBIN TIME 22.4 Seconds (9.6-11.5)
[2017-11-26] MEDS ORDERED: DIPHENHYDRAMINE 25 MG CAPSULE ONE (01:16)
[2017-11-26] MEDS ORDERED: VANCOMYCIN 1,500 MG in SODIUM CHLORIDE 0.9% 250 ML IV ONE (01:30)
[2017-11-26] MEDS ORDERED: DIPHENHYDRAMINE 25 MG CAPSULE PO ONE (01:30)
[2017-11-26] MEDS ORDERED: VANCOMYCIN PER PHARMACY MC PRN ×2 (01:30→03:00)
[2017-11-26 02:16] LABS: BASOPHILS # (AUTO) 0.06 x10^3/uL (0-0.1); BASOPHILS % (AUTO) 0 % (0-1); EOSINOPHILS # (AUTO) 0.01 x10^3/uL (0-0.4); EOSINOPHILS % (AUTO) 0 % (1-7); LYMPHOCYTES # (AUTO) 6.63 x10^3/uL (1-3.4); LYMPHOCYTES % (AUTO) 28 % (22-44); MD SCAN; MONOCYTES # (AUTO) 1.63 x10^3/uL (0.2-0.8); MONOCYTES % (AUTO) 7 % (2-9); NEUTROPHILS # (AUTO) 15.82 x10^3/uL (1.8-6.8); NEUTROPHILS % (AUTO) 66 % (42-75)
[2017-11-26 02:51] VITALS: BP 117/79
[2017-11-26] MEDS ORDERED: ONDANSETRON ODT 4 MG PO PRN (03:00)
[2017-11-26] MEDS ORDERED: BISACODYL 10 MG SUPP PR PRN (03:00)
[2017-11-26] MEDS ORDERED: OXYcodone/APAP 5/325MG TABLET PO PRN (03:00)
[2017-11-26] MEDS ORDERED: POLYETHYLENE GLYCOL 17 GM PACKET PO PRN (03:00)
[2017-11-26] MEDS ORDERED: PROMETHAZINE 25 MG/ML, 1ML IM PRN (03:00)
[2017-11-26] MEDS ORDERED: LABETALOL 5MG/ML, 20ML IVPush PRN (03:00)
[2017-11-26] MEDS ORDERED: ONDANSETRON 2MG/ML, 2ML IVPush PRN (03:00)
[2017-11-26] MEDS ORDERED: ENALAPRILAT 1.25 MG/ML, 2ML IVPush PRN (03:00)
[2017-11-26] MEDS: SODIUM CHLORIDE 0.9% 1,000 ML IV SCH ×2 (03:22→17:09)
[2017-11-26 03:23] LABS: FREE T4 (FREE THYROXINE) 0.75 ng/dL (0.76-1.46); HEMOGLOBIN A1C 5.6 % (4.2-6.3); THYROID STIMULATING HORMONE 0.392 mIU/L (0.358-3.740)
[2017-11-26] MEDS ORDERED: PHARMACOKINETIC CONSULTATION MC ONE (03:30)
[2017-11-26] MEDS ORDERED: PHARMACOKINETIC MONITORING MC PRN (03:30)
[2017-11-26] MEDS: PIPERACILLIN/TAZO/PMX 3.375GM 50 ML IV SCH ×4 (04:12→23:03)
[2017-11-26] MEDS: morphine SULFATE 10 MG/ML, 1ML IVPush PRN ×2 (05:21→18:42)
[2017-11-26 06:36] VITALS: BP 118/78
[2017-11-26] MEDS ORDERED: ATENOLOL 25 MG TABLET PO SCH (09:00)
[2017-11-26] MEDS ORDERED: OMNIPAQUE 350 MG/ML, 100ML BOTTLE ONE (09:36)
[2017-11-26] MEDS: GABAPENTIN 400 MG CAPSULE PO SCH ×3 (09:39→21:30)
[2017-11-26] MEDS: CYCLOBENZAPRINE 10 MG TABLET PO SCH ×3 (09:40→20:56)
[2017-11-26] MEDS: DIPHENHYDRAMINE 25 MG CAPSULE PO SCH ×4 (09:40→20:56)
[2017-11-26] MEDS: SENNA/DOCUSATE TABLET PO SCH (09:40)
[2017-11-26] MEDS: VANCOMYCIN 1,500 MG in SODIUM CHLORIDE 0.9% 250 ML IV SCH (13:55)
[2017-11-26 14:01] VITALS: BP 121/78
[2017-11-26] MEDS ORDERED: WARFARIN 3 MG TABLET PO-COUM ONE (18:00)
[2017-11-26 20:14] VITALS: BP 118/80
[2017-11-27 01:39] VITALS: BP 133/88
[2017-11-27] MEDS: VANCOMYCIN 1,500 MG in SODIUM CHLORIDE 0.9% 250 ML IV SCH ×2 (02:21→14:11)
[2017-11-27] MEDS: SODIUM CHLORIDE 0.9% 1,000 ML IV SCH ×2 (02:22→23:30)
[2017-11-27] MEDS: PIPERACILLIN/TAZO/PMX 3.375GM 50 ML IV SCH ×4 (05:09→23:04)
[2017-11-27 05:36] LABS: MEAN CORPUSCULAR HEMOGLOBIN 36.7 pg (27.5-34.5); MEAN CORPUSCULAR HGB CONC 33.5 g/dL (33.2-36.2); MEAN CORPUSCULAR VOLUME 109.8 fL (81-97); MEAN PLATELET VOLUME 6.6 fL (7.4-10.4); PLATELET COUNT 216 x10^3/uL (130-400); RED BLOOD COUNT 2.63 x10^6/uL (4.38-5.82); RED CELL DISTRIBUTION WIDTH 16.5 % (9.4-14.8)
[2017-11-27 05:42] LABS: INTERNATIONAL NORMALIZED RATIO 2.38 (0.93-1.1); PROTHROMBIN TIME 24.1 Seconds (9.6-11.5)
[2017-11-27 05:46] LABS: CHLORIDE 107 mmol/L (98-107)
[2017-11-27 05:55] LABS: ALANINE AMINOTRANSFERASE 25 U/L (12-78); ALBUMIN 2.3 g/dL (3.4-5.0); ALKALINE PHOSPHATASE 61 U/L (45-117); ANION GAP 7 mmol/L (5-15); BILIRUBIN,TOTAL 0.5 mg/dL (0.2-1.0); CALCIUM 8.1 mg/dL (8.5-10.1); CHOL/HDL RATIO 4.1; CHOLESTEROL, TOTAL 138 mg/dL (140-239); CREATININE 1.04 mg/dL (0.7-1.3); HDL CHOL % 25 % (26-37); HDL CHOLESTEROL (DIRECT) 34 mg/dL (40-60); LDL CHOLESTEROL,CALCULATED 72 mg/dL (54-169); LDL/HDL RATIO 2.1 (0.5-3.0); TOTAL PROTEIN 6.4 g/dL (6.4-8.2); TRIGLYCERIDES 160 mg/dL (50-200); VLDL CHOLESTEROL 32 mg/dL (0-25)
[2017-11-27] MEDS: DIPHENHYDRAMINE 25 MG CAPSULE PO SCH ×4 (06:00→22:33)
[2017-11-27 06:05] LABS: MD YES
[2017-11-27 06:07] LABS: LYMPH#(MANUAL) 6.12 x10^3/uL (1-3.4); LYMPHS% (MANUAL) 30 % (22-44); MONOS#(MANUAL) 1.02 x10^3/uL (0.3-2.7); MONOS% (MANUAL) 5 % (2-9); SEG#(MANUAL) 13.26 x10^3/uL (1.8-6.8); SEGS% (MANUAL) 65 % (42-75)
[2017-11-27 06:08] LABS: ANISOCYTOSIS 1+; TOXIC GRAN 1+
[2017-11-27 06:09] LABS: <PLATELET ESTIMATE> ADEQUATE; SMALL PLATELETS 1+
[2017-11-27 07:13] VITALS: BP 117/78
[2017-11-27] MEDS: GABAPENTIN 400 MG CAPSULE PO SCH ×3 (08:25→22:33)
[2017-11-27] MEDS: SENNA/DOCUSATE TABLET PO SCH (08:25)
[2017-11-27] MEDS: CYCLOBENZAPRINE 10 MG TABLET PO SCH ×3 (08:25→22:33)
[2017-11-27] MEDS: morphine SULFATE 10 MG/ML, 1ML IVPush PRN (08:36)
[2017-11-27 14:27] VITALS: BP 119/80
[2017-11-27] MEDS ORDERED: WARFARIN 3 MG TABLET PO-COUM ONE (18:00)
[2017-11-27 18:58] VITALS: BP 111/72
[2017-11-27 22:23] VITALS: BP 122/83
[2017-11-27] MEDS: ACETAMINOPHEN 325 MG TABLET PO PRN (22:30)
[2017-11-27] MEDS ORDERED: SODIUM CHLORIDE 0.9%, 500ML IVBOLUS ONE (23:30)
[2017-11-28] VITALS: BP 105/71
[2017-11-28] MEDS: morphine SULFATE 10 MG/ML, 1ML IVPush PRN (00:23)
[2017-11-28] MEDS: VANCOMYCIN 1,500 MG in SODIUM CHLORIDE 0.9% 250 ML IV SCH ×2 (02:38→13:55)
[2017-11-28 04:05] VITALS: BP 113/79
[2017-11-28] MEDS: DIPHENHYDRAMINE 25 MG CAPSULE PO SCH (05:00)
[2017-11-28] MEDS: PIPERACILLIN/TAZO/PMX 3.375GM 50 ML IV SCH ×4 (05:01→23:35)
[2017-11-28 07:06] VITALS: BP 94/60
[2017-11-28 07:15] LABS: MEAN CORPUSCULAR HEMOGLOBIN 36.3 pg (27.5-34.5); MEAN CORPUSCULAR HGB CONC 33.8 g/dL (33.2-36.2); MEAN CORPUSCULAR VOLUME 107.5 fL (81-97); MEAN PLATELET VOLUME 6.2 fL (7.4-10.4); PLATELET COUNT 222 x10^3/uL (130-400); RED CELL DISTRIBUTION WIDTH 16.5 % (9.4-14.8)
[2017-11-28 07:24] LABS: ALBUMIN 2.3 g/dL (3.4-5.0); ANION GAP 9 mmol/L (5-15); CALCIUM 7.7 mg/dL (8.5-10.1); CHLORIDE 106 mmol/L (98-107); CREATININE 1.35 mg/dL (0.7-1.3)
[2017-11-28 07:37] LABS: INTERNATIONAL NORMALIZED RATIO 2.55 (0.93-1.1); PROTHROMBIN TIME 25.8 Seconds (9.6-11.5)
[2017-11-28 07:53] LABS: BASOPHILS # (AUTO) 0.07 x10^3/uL (0-0.1); BASOPHILS % (AUTO) 0 % (0-1); EOSINOPHILS # (AUTO) 0.04 x10^3/uL (0-0.4); EOSINOPHILS % (AUTO) 0 % (1-7); LYMPHOCYTES # (AUTO) 5.79 x10^3/uL (1-3.4); LYMPHOCYTES % (AUTO) 32 % (22-44); MD SCAN; MONOCYTES % (AUTO) 7 % (2-9); NEUTROPHILS # (AUTO) 10.97 x10^3/uL (1.8-6.8); NEUTROPHILS % (AUTO) 61 % (42-75)
[2017-11-28] MEDS ORDERED: MAGNESIUM SULFATE PMX 2GM/50ML 50 ML IV ONE (08:00)
[2017-11-28] MEDS: SENNA/DOCUSATE TABLET PO SCH (08:52)
[2017-11-28] MEDS: GABAPENTIN 400 MG CAPSULE PO SCH ×2 (08:52→14:39)
[2017-11-28] MEDS: SODIUM CHLORIDE 0.9% 1,000 ML IV SCH ×2 (08:52→17:07)
[2017-11-28 11:31] LABS: FREE T4 (FREE THYROXINE) 1.01 ng/dL (0.76-1.46); THYROID STIMULATING HORMONE 1.31 mIU/L (0.358-3.740)
[2017-11-28] MEDS ORDERED: GADOBUTROL 7.5 MMOL/7.5 ML PFS ONE (11:46)
[2017-11-28] MEDS ORDERED: HYDROCORTISONE 100 MG INJ. IVPush SCH (12:00)
[2017-11-28 12:48] VITALS: BP 92/50
[2017-11-28] MEDS ORDERED: WARFARIN 2 MG TABLET PO-COUM ONE (17:00)
[2017-11-28] MEDS ORDERED: GABAPENTIN 400 MG CAPSULE PO PRN (18:00)
[2017-11-28] MEDS ORDERED: WARFARIN 3 MG TABLET PO-COUM ONE (18:00)
[2017-11-28] MEDS ORDERED: PHYTONADIONE 5 MG TABLET PO ONE (18:00)
[2017-11-28] MEDS: D5%-0.45% NACL 1,000 ML IV SCH (18:37)
[2017-11-28] MEDS ORDERED: HYDROcodone/APAP 10/325 MG TABLET ONE (20:47)
[2017-11-28 20:53] VITALS: BP 113/75
[2017-11-28] MEDS: HYDROCORTISONE 100 MG INJ. IVPush SCH (20:54)
[2017-11-28] MEDS: HYDROcodone/APAP 10/325 MG TABLET PO PRN (20:54)
[2017-11-29] VITALS (10 sets, daily range): BP systolic 110–148; BP diastolic 69–94
[2017-11-29] MEDS: VANCOMYCIN 1,500 MG in SODIUM CHLORIDE 0.9% 250 ML IV SCH ×2 (01:09→17:30)
[2017-11-29] MEDS: HYDROcodone/APAP 10/325 MG TABLET PO PRN ×3 (01:18→22:01)
[2017-11-29 02:56] LABS: BASOPHILS # (AUTO) 0.01 x10^3/uL (0-0.1); BASOPHILS % (AUTO) 0 % (0-1); EOSINOPHILS % (AUTO) 0 % (1-7); LYMPHOCYTES # (AUTO) 2.51 x10^3/uL (1-3.4); LYMPHOCYTES % (AUTO) 15 % (22-44); MD NO; MEAN CORPUSCULAR HEMOGLOBIN 36.1 pg (27.5-34.5); MEAN CORPUSCULAR HGB CONC 33.7 g/dL (33.2-36.2); MEAN CORPUSCULAR VOLUME 107.4 fL (81-97); MEAN PLATELET VOLUME 6.5 fL (7.4-10.4); MONOCYTES # (AUTO) 0.57 x10^3/uL (0.2-0.8); MONOCYTES % (AUTO) 3 % (2-9); NEUTROPHILS # (AUTO) 13.83 x10^3/uL (1.8-6.8); NEUTROPHILS % (AUTO) 82 % (42-75); PLATELET COUNT 224 x10^3/uL (130-400); RED BLOOD COUNT 2.65 x10^6/uL (4.38-5.82); RED CELL DISTRIBUTION WIDTH 16.8 % (9.4-14.8)
[2017-11-29 03:03] LABS: INTERNATIONAL NORMALIZED RATIO 2.51 (0.93-1.1); PROTHROMBIN TIME 25.4 Seconds (9.6-11.5)
[2017-11-29 03:07] LABS: ALANINE AMINOTRANSFERASE 38 U/L (12-78); ALBUMIN 2.3 g/dL (3.4-5.0); ANION GAP 6 mmol/L (5-15); CALCIUM 8.5 mg/dL (8.5-10.1); CHLORIDE 106 mmol/L (98-107); CREATININE 1.26 mg/dL (0.7-1.3)
[2017-11-29 03:09] LABS: ALKALINE PHOSPHATASE 84 U/L (45-117); BILIRUBIN,TOTAL 0.5 mg/dL (0.2-1.0); TOTAL PROTEIN 6.9 g/dL (6.4-8.2)
[2017-11-29 08:07] LABS: INTERNATIONAL NORMALIZED RATIO 1.7 (0.93-1.1); PROTHROMBIN TIME 17.3 Seconds (9.6-11.5)
[2017-11-29] MEDS: SENNA/DOCUSATE TABLET PO SCH (09:00)
[2017-11-29] MEDS: HYDROCORTISONE 100 MG INJ. IVPush SCH ×3 (10:10→23:08)
[2017-11-29] MEDS: PIPERACILLIN/TAZO/PMX 3.375GM 50 ML IV SCH ×3 (10:11→22:55)
[2017-11-29 10:56] LABS: INTERNATIONAL NORMALIZED RATIO 1.52 (0.93-1.1); PROTHROMBIN TIME 15.5 Seconds (9.6-11.5)
[2017-11-29] MEDS ORDERED: FENTANYL PF 100 MCG/2ML ONE ×4 (11:50→13:55)
[2017-11-29] MEDS ORDERED: MIDAZOLAM 1 MG/ML, 2ML ONE (11:50)
[2017-11-29] MEDS ORDERED: ONDANSETRON 2MG/ML, 2ML ONE ×2 (12:29→13:10)
[2017-11-29] MEDS ORDERED: PROPOFOL 10 MG/ML, 20ML ONE (12:29)
[2017-11-29] MEDS ORDERED: BACITRACIN 50,000 UNIT ONE (12:45)
[2017-11-29] MEDS ORDERED: DEXAMETHASONE 4 MG/ML, 1ML ONE (12:47)
[2017-11-29] MEDS ORDERED: SUCCINYLCHOLINE 20 MG/ML, 10ML ONE (12:55)
[2017-11-29] MEDS ORDERED: ROCURONIUM 10MG/ML,5ML ONE (12:55)
[2017-11-29] MEDS ORDERED: HYDROmorphone 1 MG/ML, 1ML IV PRN (13:00)
[2017-11-29] MEDS ORDERED: MEPERIDINE/PF 25MG/0.5ML IVPush PRN (13:00)
[2017-11-29] MEDS ORDERED: LORazepam 2 MG/ML, 1ML IVPush PRN (13:00)
[2017-11-29] MEDS ORDERED: LABETALOL 5MG/ML, 20ML IV PRN (13:00)
[2017-11-29] MEDS ORDERED: OXYcodone 5 MG/5 ML ORAL.SOL UDC PO PRN (13:00)
[2017-11-29] MEDS ORDERED: ONDANSETRON 2MG/ML, 2ML IV PRN (13:00)
[2017-11-29] MEDS ORDERED: PROMETHAZINE 25 MG/ML, 1ML IV PRN (13:00)
[2017-11-29] MEDS ORDERED: ALBUTEROL SULFATE 2.5 MG/3 ML NPPB PRN (13:00)
[2017-11-29] MEDS ORDERED: ACETAMINOPHEN 325 MG TABLET PO PRN (13:00)
[2017-11-29] MEDS ORDERED: hydrALAzine 20 MG/ML, 1ML IV PRN (13:00)
[2017-11-29] MEDS ORDERED: ONDANSETRON ODT 8 MG PO PRN (13:00)
[2017-11-29] MEDS ORDERED: MIDAZOLAM 1 MG/ML, 2ML IV PRN (13:00)
[2017-11-29] MEDS ORDERED: PROMETHAZINE 12.5 MG SUPP PR PRN (13:00)
[2017-11-29] MEDS: FENTANYL PF 100 MCG/2ML IV PRN ×4 (13:30→14:07)
[2017-11-29] MEDS ORDERED: HYDROcodone/APAP 7.5-325MG/15ML UDC ONE (13:42)
[2017-11-29] MEDS ORDERED: HYDROcodone/APAP 7.5-325MG/15ML UDC PO PRN (14:00)
[2017-11-29] MEDS ORDERED: WARFARIN 7.5 MG TABLET PO-COUM ONE (18:00)
[2017-11-29] MEDS: MUPIROCIN OINT 2%, 22GM TP SCH (21:00)
[2017-11-29] MEDS: D5%-0.45% NACL 1,000 ML IV SCH (22:01)
[2017-11-30 00:07] VITALS: BP 134/83
[2017-11-30 03:48] VITALS: BP 146/86
[2017-11-30] MEDS: PIPERACILLIN/TAZO/PMX 3.375GM 50 ML IV SCH ×4 (04:07→22:11)
[2017-11-30] MEDS: VANCOMYCIN 1,500 MG in SODIUM CHLORIDE 0.9% 250 ML IV SCH ×2 (05:20→18:42)
[2017-11-30 07:21] VITALS: BP 157/92
[2017-11-30 07:34] LABS: BASOPHILS # (AUTO) 0.01 x10^3/uL (0-0.1); BASOPHILS % (AUTO) 0 % (0-1); EOSINOPHILS # (AUTO) 0.01 x10^3/uL (0-0.4); EOSINOPHILS % (AUTO) 0 % (1-7); LYMPHOCYTES # (AUTO) 2.03 x10^3/uL (1-3.4); LYMPHOCYTES % (AUTO) 15 % (22-44); MD NO; MEAN CORPUSCULAR HEMOGLOBIN 35.5 pg (27.5-34.5); MEAN CORPUSCULAR HGB CONC 32.9 g/dL (33.2-36.2); MEAN CORPUSCULAR VOLUME 107.9 fL (81-97); MEAN PLATELET VOLUME 6.8 fL (7.4-10.4); MONOCYTES # (AUTO) 0.59 x10^3/uL (0.2-0.8); MONOCYTES % (AUTO) 4 % (2-9); NEUTROPHILS % (AUTO) 81 % (42-75); PLATELET COUNT 230 x10^3/uL (130-400); RED BLOOD COUNT 2.31 x10^6/uL (4.38-5.82); RED CELL DISTRIBUTION WIDTH 16.3 % (9.4-14.8)
[2017-11-30 07:39] LABS: INTERNATIONAL NORMALIZED RATIO 1.5 (0.93-1.1); PROTHROMBIN TIME 15.3 Seconds (9.6-11.5)
[2017-11-30 07:42] LABS: ALANINE AMINOTRANSFERASE 32 U/L (12-78); ALBUMIN 2.3 g/dL (3.4-5.0); ANION GAP 6 mmol/L (5-15); CALCIUM 8.1 mg/dL (8.5-10.1); CHLORIDE 108 mmol/L (98-107)
[2017-11-30 07:44] LABS: ALKALINE PHOSPHATASE 66 U/L (45-117); BILIRUBIN,TOTAL 0.4 mg/dL (0.2-1.0); TOTAL PROTEIN 6.6 g/dL (6.4-8.2)
[2017-11-30] MEDS: SENNA/DOCUSATE TABLET PO SCH (09:00)
[2017-11-30] MEDS: MUPIROCIN OINT 2%, 22GM TP SCH ×3 (10:28→22:11)
[2017-11-30] MEDS: HYDROCORTISONE 100 MG INJ. IVPush SCH ×2 (10:28→22:11)
[2017-11-30] MEDS ORDERED: D5%-0.45% NACL 1,000 ML IV SCH (12:00)
[2017-11-30 13:14] VITALS: BP 159/91
[2017-11-30] MEDS ORDERED: BUPIVACAINE/PF 0.5% ONE (14:50)
[2017-11-30] MEDS ORDERED: BACITRACIN 50,000 UNIT ONE (14:51)
[2017-11-30] MEDS ORDERED: EPINEPHRINE 1 MG/ML, 1ML ONE (14:51)
[2017-11-30] MEDS ORDERED: MIDAZOLAM 1 MG/ML, 5ML ONE (15:15)
[2017-11-30] MEDS ORDERED: FENTANYL PF 250 MCG/5ML ONE (15:15)
[2017-11-30] MEDS ORDERED: SUCCINYLCHOLINE 20 MG/ML, 10ML ONE (15:26)
[2017-11-30] MEDS ORDERED: ROCURONIUM 10 MG/ML,10ML ONE (15:26)
[2017-11-30] MEDS ORDERED: PROPOFOL 10 MG/ML, 20ML ONE (15:26)
[2017-11-30] MEDS ORDERED: OXYcodone 5 MG/5 ML ORAL.SOL UDC ONE (16:20)
[2017-11-30] MEDS ORDERED: FENTANYL PF 100 MCG/2ML ONE (16:20)
[2017-11-30] MEDS ORDERED: HYDROmorphone 2 MG/ML, 1ML ONE (16:20)
[2017-11-30] MEDS: FENTANYL PF 100 MCG/2ML IV PRN ×2 (16:28→16:48)
[2017-11-30] MEDS: HYDROmorphone 1 MG/ML, 1ML IV PRN ×4 (16:29→16:58)
[2017-11-30] MEDS ORDERED: OXYcodone 5 MG/5 ML ORAL.SOL UDC PO PRN (16:30)
[2017-11-30] MEDS ORDERED: ONDANSETRON 2MG/ML, 2ML IV PRN (16:30)
[2017-11-30] MEDS ORDERED: LABETALOL 5MG/ML, 20ML IV PRN (16:30)
[2017-11-30] MEDS ORDERED: hydrALAzine 20 MG/ML, 1ML IV PRN (16:30)
[2017-11-30 19:45] VITALS: BP 187/93
[2017-11-30] MEDS: hydrALAzine 20 MG/ML, 1ML IVPush PRN (20:02)
[2017-11-30] MEDS: MORPHINE SULFATE 4 MG/ML, 1ML IV PRN (20:54)
[2017-12-01 00:25] VITALS: BP 109/72
[2017-12-01] MEDS: CYCLOBENZAPRINE 10 MG TABLET PO PRN ×3 (01:32→23:23)
[2017-12-01] MEDS: MORPHINE SULFATE 4 MG/ML, 1ML IV PRN ×3 (01:32→20:30)
[2017-12-01] MEDS: ACETAMINOPHEN 325 MG TABLET PO PRN (01:32)
[2017-12-01 04:15] VITALS: BP 123/76
[2017-12-01 05:23] LABS: BASOPHILS % (AUTO) 2 % (0-1); EOSINOPHILS # (AUTO) 0.01 x10^3/uL (0-0.4); EOSINOPHILS % (AUTO) 0 % (1-7); INTERNATIONAL NORMALIZED RATIO 1.57 (0.93-1.1); LYMPHOCYTES # (AUTO) 1.91 x10^3/uL (1-3.4); LYMPHOCYTES % (AUTO) 19 % (22-44); MD NO; MEAN CORPUSCULAR HEMOGLOBIN 36.8 pg (27.5-34.5); MEAN CORPUSCULAR HGB CONC 34.1 g/dL (33.2-36.2); MEAN CORPUSCULAR VOLUME 107.9 fL (81-97); MEAN PLATELET VOLUME 6.6 fL (7.4-10.4); MONOCYTES # (AUTO) 0.88 x10^3/uL (0.2-0.8); MONOCYTES % (AUTO) 9 % (2-9); NEUTROPHILS # (AUTO) 7.15 x10^3/uL (1.8-6.8); NEUTROPHILS % (AUTO) 70 % (42-75); PLATELET COUNT 257 x10^3/uL (130-400); RED BLOOD COUNT 2.22 x10^6/uL (4.38-5.82)
[2017-12-01 05:29] LABS: ALBUMIN 2.1 g/dL (3.4-5.0); ANION GAP 5 mmol/L (5-15); CALCIUM 7.8 mg/dL (8.5-10.1); CHLORIDE 110 mmol/L (98-107)
[2017-12-01 05:30] LABS: CREATININE 1.46 mg/dL (0.7-1.3)
[2017-12-01] MEDS ORDERED: PHARMACY MAY ADJ FOR RENAL FX MC PRN (08:30)
[2017-12-01 08:40] VITALS: BP 146/94
[2017-12-01] MEDS: SENNA/DOCUSATE TABLET PO SCH (09:00)
[2017-12-01] MEDS ORDERED: SODIUM CHLORIDE 0.45% 1,000 ML IV SCH (09:00)
[2017-12-01] MEDS: AMPICILLIN/SULBACTAM 3 GM in SODIUM CHLORIDE 0.9% 100 ML IV SCH ×3 (09:01→22:56)
[2017-12-01] MEDS: HYDROCORTISONE 100 MG INJ. IVPush SCH (09:01)
[2017-12-01] MEDS: MUPIROCIN OINT 2%, 22GM TP SCH ×3 (09:02→22:56)
[2017-12-01] MEDS: HYDROcodone/APAP 10/325 MG TABLET PO PRN ×2 (13:28→23:23)
[2017-12-01] MEDS ORDERED: HEPARIN 25,000 UNITS/500ML PMX 500 ML IV PRN ×2 (14:00→14:30)
[2017-12-01] MEDS ORDERED: HEPARIN 5,000 UNITS/ML, 1ML IV PRN (14:30)
[2017-12-01] MEDS ORDERED: HEPARIN 5,000 UNITS/ML, 1ML IV ONE (14:30)
[2017-12-01 15:02] VITALS: BP 128/86
[2017-12-01] MEDS: OXYcodone/APAP 5/325MG TABLET PO PRN (17:58)
[2017-12-01] MEDS ORDERED: WARFARIN 3 MG TABLET PO-COUM ONE (18:00)
[2017-12-01] MEDS ORDERED: WARFARIN 5 MG TABLET PO-COUM ONE (18:00)
[2017-12-01 20:00] VITALS: BP 144/91
[2017-12-01] MEDS ORDERED: VANCOMYCIN 1,400 MG in SODIUM CHLORIDE 0.9% 250 ML IV SCH (20:00)
[2017-12-02 01:02] VITALS: BP 137/88
[2017-12-02] MEDS: MORPHINE SULFATE 4 MG/ML, 1ML IV PRN ×3 (02:25→20:30)
[2017-12-02] MEDS: AMPICILLIN/SULBACTAM 3 GM in SODIUM CHLORIDE 0.9% 100 ML IV SCH ×3 (04:47→16:19)
[2017-12-02 05:15] LABS: INTERNATIONAL NORMALIZED RATIO 1.74 (0.93-1.1); PROTHROMBIN TIME 17.7 Seconds (9.6-11.5)
[2017-12-02 05:18] LABS: BASOPHILS # (AUTO) 0.05 x10^3/uL (0-0.1); BASOPHILS % (AUTO) 1 % (0-1); EOSINOPHILS # (AUTO) 0.01 x10^3/uL (0-0.4); EOSINOPHILS % (AUTO) 0 % (1-7); LYMPHOCYTES # (AUTO) 3.69 x10^3/uL (1-3.4); LYMPHOCYTES % (AUTO) 40 % (22-44); MD NO; MEAN CORPUSCULAR HEMOGLOBIN 36.3 pg (27.5-34.5); MEAN CORPUSCULAR HGB CONC 33.6 g/dL (33.2-36.2); MEAN CORPUSCULAR VOLUME 108.2 fL (81-97); MEAN PLATELET VOLUME 6.4 fL (7.4-10.4); MONOCYTES # (AUTO) 0.87 x10^3/uL (0.2-0.8); MONOCYTES % (AUTO) 9 % (2-9); NEUTROPHILS # (AUTO) 4.66 x10^3/uL (1.8-6.8); NEUTROPHILS % (AUTO) 50 % (42-75); PLATELET COUNT 293 x10^3/uL (130-400); RED BLOOD COUNT 2.53 x10^6/uL (4.38-5.82); RED CELL DISTRIBUTION WIDTH 16.5 % (9.4-14.8)
[2017-12-02 05:19] LABS: ALBUMIN 2.2 g/dL (3.4-5.0); ANION GAP 5 mmol/L (5-15); CALCIUM 8.1 mg/dL (8.5-10.1); CHLORIDE 110 mmol/L (98-107)
[2017-12-02 05:45] LABS: CREATININE 1.64 mg/dL (0.7-1.3)
[2017-12-02] MEDS ORDERED: LINEZOLID PMX 600MG/300ML 300 ML IV SCH (07:30)
[2017-12-02 07:39] VITALS: BP_SYST 100; BP_SYST 162; BP_DIAS 63; BP_DIAS 99
[2017-12-02] MEDS ORDERED: LIDOCAINE-MPF 2%, 2ML ONE (08:37)
[2017-12-02] MEDS ORDERED: SODIUM CHLORIDE 0.45% 1,000 ML IV SCH (09:00)
[2017-12-02] MEDS ORDERED: POTASSIUM CHLORIDE 10% 40 MEQ/30 ML UDC PO ONE (09:00)
[2017-12-02] MEDS: SENNA/DOCUSATE TABLET PO SCH (09:00)
[2017-12-02] MEDS: MUPIROCIN OINT 2%, 22GM TP SCH ×2 (09:00→16:00)
[2017-12-02] MEDS ORDERED: BUPIVACAINE 0.25% ONE (11:41)
[2017-12-02] MEDS ORDERED: NEOSPORIN OINT, 15GM ONE (11:41)
[2017-12-02] MEDS ORDERED: FENTANYL PF 100 MCG/2ML ONE (13:13)
[2017-12-02] MEDS ORDERED: MIDAZOLAM 1 MG/ML, 2ML ONE (13:13)
[2017-12-02] MEDS ORDERED: MEPERIDINE/PF 100 MG/ML ONE (14:07)
[2017-12-02] MEDS ORDERED: BACITRACIN 50,000 UNIT ONE (14:13)
[2017-12-02] MEDS ORDERED: MEPERIDINE/PF 25MG/0.5ML IVPush PRN (14:30)
[2017-12-02] MEDS ORDERED: FENTANYL PF 100 MCG/2ML IV PRN (14:30)
[2017-12-02] MEDS ORDERED: PROMETHAZINE 25 MG/ML, 1ML IV PRN (14:30)
[2017-12-02] MEDS ORDERED: MIDAZOLAM 1 MG/ML, 2ML IV PRN (14:30)
[2017-12-02] MEDS ORDERED: ONDANSETRON 2MG/ML, 2ML IV PRN (14:30)
[2017-12-02] MEDS ORDERED: HYDROmorphone 1 MG/ML, 1ML IV PRN (14:30)
[2017-12-02] MEDS ORDERED: LABETALOL 5MG/ML, 20ML IV PRN (14:30)
[2017-12-02] MEDS ORDERED: OXYcodone 5 MG/5 ML ORAL.SOL UDC PO PRN (14:30)
[2017-12-02] MEDS ORDERED: ALBUTEROL/IPRATROPIUM 2.5MG/0.5MG, 3 ML NPPB PRN (14:30)
[2017-12-02] MEDS ORDERED: PROPOFOL 10 MG/ML, 20ML ONE (14:56)
[2017-12-02] MEDS ORDERED: DEXAMETHASONE 4 MG/ML, 1ML ONE (14:56)
[2017-12-02] MEDS ORDERED: ONDANSETRON 2MG/ML, 2ML ONE (14:56)
[2017-12-02] MEDS ORDERED: OXYcodone 5 MG/5 ML ORAL.SOL UDC ONE (15:30)
[2017-12-02] MEDS ORDERED: ACETAMINOPHEN 650 MG/20.3 ML UDC ONE (15:30)
[2017-12-02] MEDS: hydrALAzine 20 MG/ML, 1ML IVPush PRN (16:48)
[2017-12-02] MEDS ORDERED: WARFARIN 3 MG TABLET PO-COUM SCH (18:00)
[2017-12-02] MEDS: metroNIDAZOLE 500 MG TABLET PO SCH (18:27)
[2017-12-02] MEDS ORDERED: ENOXAPARIN 80 MG/0.8 ML SQ SCH (18:30)
[2017-12-02 19:59] VITALS: BP 145/92
[2017-12-02] MEDS: CEFTRIAXONE 2 GM in SODIUM CHLORIDE 0.9% 50 ML IV SCH (20:31)
[2017-12-02] MEDS: HYDROcodone/APAP 10/325 MG TABLET PO PRN (20:31)
[2017-12-02] MEDS: ENOXAPARIN 80 MG/0.8 ML SQ SCH (20:31)
[2017-12-03 00:31] VITALS: BP 135/91
[2017-12-03] MEDS: LINEZOLID 600 MG TABLET PO SCH ×3 (02:52→20:54)
[2017-12-03] MEDS: metroNIDAZOLE 500 MG TABLET PO SCH ×3 (02:52→17:04)
[2017-12-03] MEDS: SODIUM CHLORIDE 0.45% 1,000 ML IV SCH ×2 (02:53→13:24)
[2017-12-03] MEDS: MUPIROCIN OINT 2%, 22GM TP SCH ×5 (02:58→20:57)
[2017-12-03 04:36] VITALS: BP 163/101
[2017-12-03] MEDS: MORPHINE SULFATE 4 MG/ML, 1ML IV PRN ×4 (06:20→23:57)
[2017-12-03] MEDS: HYDROcodone/APAP 10/325 MG TABLET PO PRN ×4 (06:21→20:54)
[2017-12-03 07:25] LABS: INTERNATIONAL NORMALIZED RATIO 3.02 (0.93-1.1); PROTHROMBIN TIME 30.4 Seconds (9.6-11.5)
[2017-12-03 07:31] VITALS: BP 172/105
[2017-12-03 08:09] LABS: BASOPHILS # (AUTO) 0.13 x10^3/uL (0-0.1); BASOPHILS % (AUTO) 1 % (0-1); EOSINOPHILS % (AUTO) 0 % (1-7); LYMPHOCYTES # (AUTO) 2.72 x10^3/uL (1-3.4); LYMPHOCYTES % (AUTO) 29 % (22-44); MD NO; MEAN CORPUSCULAR HEMOGLOBIN 35.6 pg (27.5-34.5); MEAN CORPUSCULAR HGB CONC 33.1 g/dL (33.2-36.2); MEAN CORPUSCULAR VOLUME 107.7 fL (81-97); MEAN PLATELET VOLUME 6.5 fL (7.4-10.4); MONOCYTES # (AUTO) 0.79 x10^3/uL (0.2-0.8); MONOCYTES % (AUTO) 8 % (2-9); NEUTROPHILS # (AUTO) 5.88 x10^3/uL (1.8-6.8); NEUTROPHILS % (AUTO) 62 % (42-75); PLATELET COUNT 287 x10^3/uL (130-400); RED BLOOD COUNT 2.26 x10^6/uL (4.38-5.82); RED CELL DISTRIBUTION WIDTH 16.7 % (9.4-14.8)
[2017-12-03 08:22] LABS: ALBUMIN 2.1 g/dL (3.4-5.0); ANION GAP 6 mmol/L (5-15); CHLORIDE 109 mmol/L (98-107); CREATININE 1.59 mg/dL (0.7-1.3)
[2017-12-03] MEDS: ENOXAPARIN 80 MG/0.8 ML SQ SCH ×2 (08:28→20:54)
[2017-12-03] MEDS: hydrALAzine 20 MG/ML, 1ML IVPush PRN (08:28)
[2017-12-03] MEDS: SENNA/DOCUSATE TABLET PO SCH (09:00)
[2017-12-03] MEDS ORDERED: MORPHINE SULFATE 4 MG/ML, 1ML IVPush ONE (11:30)
[2017-12-03 13:11] VITALS: BP 131/86
[2017-12-03] MEDS ORDERED: WARFARIN 1 MG TABLET PO-COUM ONE (18:00)
[2017-12-03 19:23] VITALS: BP 145/91
[2017-12-03] MEDS: CEFTRIAXONE 2 GM in SODIUM CHLORIDE 0.9% 50 ML IV SCH (20:54)
[2017-12-04 00:34] VITALS: BP 177/113
[2017-12-04] MEDS: metroNIDAZOLE 500 MG TABLET PO SCH ×3 (01:18→18:04)
[2017-12-04] MEDS: HYDROcodone/APAP 10/325 MG TABLET PO PRN ×4 (01:18→20:35)
[2017-12-04] MEDS: ACETAMINOPHEN 325 MG TABLET PO PRN (02:00)
[2017-12-04 02:12] VITALS: BP 151/104
[2017-12-04] MEDS: hydrALAzine 20 MG/ML, 1ML IVPush PRN ×2 (02:30→21:45)
[2017-12-04 06:39] LABS: BASOPHILS # (AUTO) 0.07 x10^3/uL (0-0.1); BASOPHILS % (AUTO) 1 % (0-1); EOSINOPHILS # (AUTO) 0.07 x10^3/uL (0-0.4); EOSINOPHILS % (AUTO) 1 % (1-7); LYMPHOCYTES % (AUTO) 40 % (22-44); MD NO; MEAN CORPUSCULAR HEMOGLOBIN 36.3 pg (27.5-34.5); MEAN CORPUSCULAR HGB CONC 33.7 g/dL (33.2-36.2); MEAN CORPUSCULAR VOLUME 107.8 fL (81-97); MEAN PLATELET VOLUME 6.1 fL (7.4-10.4); MONOCYTES # (AUTO) 0.14 x10^3/uL (0.2-0.8); MONOCYTES % (AUTO) 2 % (2-9); NEUTROPHILS # (AUTO) 5.36 x10^3/uL (1.8-6.8); NEUTROPHILS % (AUTO) 57 % (42-75); PLATELET COUNT 327 x10^3/uL (130-400); RED BLOOD COUNT 2.33 x10^6/uL (4.38-5.82)
[2017-12-04 06:50] LABS: ALANINE AMINOTRANSFERASE 33 U/L (12-78); ALBUMIN 2.2 g/dL (3.4-5.0); ANION GAP 5 mmol/L (5-15); CALCIUM 8.1 mg/dL (8.5-10.1); CHLORIDE 112 mmol/L (98-107); CREATININE 1.48 mg/dL (0.7-1.3)
[2017-12-04 06:52] LABS: ALKALINE PHOSPHATASE 55 U/L (45-117); BILIRUBIN,TOTAL 0.2 mg/dL (0.2-1.0); TOTAL PROTEIN 6.5 g/dL (6.4-8.2)
[2017-12-04 07:58] VITALS: BP 123/83
[2017-12-04] MEDS: LINEZOLID 600 MG TABLET PO SCH ×2 (08:08→20:35)
[2017-12-04] MEDS: SENNA/DOCUSATE TABLET PO SCH (08:09)
[2017-12-04] MEDS: MUPIROCIN OINT 2%, 22GM TP SCH ×3 (08:10→21:00)
[2017-12-04] MEDS: ENOXAPARIN 80 MG/0.8 ML SQ SCH (08:10)
[2017-12-04] MEDS: MORPHINE SULFATE 4 MG/ML, 1ML IV PRN ×2 (08:15→18:05)
[2017-12-04 09:26] LABS: INTERNATIONAL NORMALIZED RATIO 3.13 (0.93-1.1); PROTHROMBIN TIME 31.8 Seconds (9.6-11.5)
[2017-12-04] MEDS: SODIUM CHLORIDE 0.45% 1,000 ML IV SCH ×2 (09:58→22:10)
[2017-12-04] MEDS ORDERED: MORPHINE SULFATE 4 MG/ML, 1ML IVPush PRN (12:00)
[2017-12-04] MEDS: CYCLOBENZAPRINE 10 MG TABLET PO PRN (12:21)
[2017-12-04 13:21] VITALS: BP 146/93
[2017-12-04] MEDS ORDERED: WARFARIN 2 MG TABLET PO-COUM ONE (18:00)
[2017-12-04 19:56] VITALS: BP 173/122
[2017-12-04] MEDS: CEFTRIAXONE 2 GM in SODIUM CHLORIDE 0.9% 50 ML IV SCH (20:35)
[2017-12-04 22:13] VITALS: BP 158/99
[2017-12-05 00:21] LABS: MEAN CORPUSCULAR HEMOGLOBIN 36.7 pg (27.5-34.5); MEAN CORPUSCULAR HGB CONC 33.9 g/dL (33.2-36.2); MEAN CORPUSCULAR VOLUME 108.5 fL (81-97); MEAN PLATELET VOLUME 6.2 fL (7.4-10.4); PLATELET COUNT 371 x10^3/uL (130-400); RED BLOOD COUNT 2.47 x10^6/uL (4.38-5.82); RED CELL DISTRIBUTION WIDTH 16.7 % (9.4-14.8)
[2017-12-05 00:29] VITALS: BP 165/88
[2017-12-05] MEDS ORDERED: hydrALAzine 20 MG/ML, 1ML IV ONE (00:30)
[2017-12-05 00:33] LABS: ANION GAP 4 mmol/L (5-15); CHLORIDE 112 mmol/L (98-107); CREATININE 1.55 mg/dL (0.7-1.3); INTERNATIONAL NORMALIZED RATIO 2.45 (0.93-1.1)
[2017-12-05 00:41] LABS: TROPONIN I < 0.015 ng/mL (0.000-0.045)
[2017-12-05] MEDS ORDERED: ATORVASTATIN 80 MG TABLET PO STA (00:45)
[2017-12-05] MEDS ORDERED: ASPIRIN 325 MG TABLET PO STA (00:45)
[2017-12-05 00:58] VITALS: BP 141/93
[2017-12-05] MEDS: MORPHINE SULFATE 4 MG/ML, 1ML IV PRN ×3 (01:34→22:44)
[2017-12-05] MEDS: metroNIDAZOLE 500 MG TABLET PO SCH ×2 (01:39→10:33)
[2017-12-05 02:06] LABS: BASOPHILS # (AUTO) 0.12 x10^3/uL (0-0.1); BASOPHILS % (AUTO) 1 % (0-1); EOSINOPHILS % (AUTO) 0 % (1-7); LYMPHOCYTES # (AUTO) 5.54 x10^3/uL (1-3.4); LYMPHOCYTES % (AUTO) 54 % (22-44); MD SCAN; MONOCYTES # (AUTO) 0.55 x10^3/uL (0.2-0.8); MONOCYTES % (AUTO) 5 % (2-9); NEUTROPHILS % (AUTO) 40 % (42-75)
[2017-12-05] MEDS: SODIUM CHLORIDE 0.45% 1,000 ML IV SCH ×2 (06:16→17:09)
[2017-12-05 07:43] VITALS: BP 146/93
[2017-12-05] MEDS: LINEZOLID 600 MG TABLET PO SCH ×2 (07:57→21:21)
[2017-12-05 08:15] LABS: INTERNATIONAL NORMALIZED RATIO 2.41 (0.93-1.1); PROTHROMBIN TIME 24.6 Seconds (9.6-11.5)
[2017-12-05] MEDS: MUPIROCIN OINT 2%, 22GM TP SCH ×3 (09:00→21:21)
[2017-12-05] MEDS: SENNA/DOCUSATE TABLET PO SCH (09:00)
[2017-12-05 13:02] VITALS: BP 154/96
[2017-12-05] MEDS ORDERED: PNEUMOC 13-VALENT VACC, 0.5 ML IM-VACC ONE ×2 (17:30→21:00)
[2017-12-05] MEDS ORDERED: WARFARIN 2 MG TABLET PO-COUM ONE (18:00)
[2017-12-05] MEDS: AMPICILLIN/SULBACTAM 3 GM in SODIUM CHLORIDE 0.9% 100 ML IV SCH (18:14)
[2017-12-05] MEDS: HYDROcodone/APAP 10/325 MG TABLET PO PRN (19:38)
[2017-12-05 20:31] VITALS: BP 133/84
[2017-12-06] MEDS: AMPICILLIN/SULBACTAM 3 GM in SODIUM CHLORIDE 0.9% 100 ML IV SCH ×3 (01:42→17:02)
[2017-12-06] MEDS: HYDROcodone/APAP 10/325 MG TABLET PO PRN ×4 (01:42→20:11)
[2017-12-06 01:45] VITALS: BP 144/85
[2017-12-06 05:46] LABS: BASOPHILS # (AUTO) 0.02 x10^3/uL (0-0.1); BASOPHILS % (AUTO) 0 % (0-1); EOSINOPHILS # (AUTO) 0.03 x10^3/uL (0-0.4); EOSINOPHILS % (AUTO) 1 % (1-7); LYMPHOCYTES # (AUTO) 2.83 x10^3/uL (1-3.4); LYMPHOCYTES % (AUTO) 54 % (22-44); MD NO; MEAN CORPUSCULAR HEMOGLOBIN 35.5 pg (27.5-34.5); MEAN CORPUSCULAR HGB CONC 33.2 g/dL (33.2-36.2); MEAN CORPUSCULAR VOLUME 106.9 fL (81-97); MEAN PLATELET VOLUME 6.2 fL (7.4-10.4); MONOCYTES # (AUTO) 0.57 x10^3/uL (0.2-0.8); MONOCYTES % (AUTO) 11 % (2-9); NEUTROPHILS # (AUTO) 1.81 x10^3/uL (1.8-6.8); NEUTROPHILS % (AUTO) 34 % (42-75); PLATELET COUNT 337 x10^3/uL (130-400); RED BLOOD COUNT 2.37 x10^6/uL (4.38-5.82); RED CELL DISTRIBUTION WIDTH 16.7 % (9.4-14.8)
[2017-12-06 05:53] LABS: INTERNATIONAL NORMALIZED RATIO 2.78 (0.93-1.1); PROTHROMBIN TIME 28.1 Seconds (9.6-11.5)
[2017-12-06 06:00] LABS: ALBUMIN 2.2 g/dL (3.4-5.0); CALCIUM 7.9 mg/dL (8.5-10.1); CHLORIDE 111 mmol/L (98-107)
[2017-12-06 06:04] LABS: ANION GAP 7 mmol/L (5-15); CREATININE 1.38 mg/dL (0.7-1.3)
[2017-12-06 07:16] VITALS: BP 146/86
[2017-12-06] MEDS: SENNA/DOCUSATE TABLET PO SCH (08:27)
[2017-12-06] MEDS: MUPIROCIN OINT 2%, 22GM TP SCH ×3 (08:36→20:12)
[2017-12-06] MEDS: LINEZOLID 600 MG TABLET PO SCH ×2 (08:36→20:03)
[2017-12-06] MEDS: SODIUM CHLORIDE 0.45% 1,000 ML IV SCH ×2 (08:39→20:03)
[2017-12-06] MEDS: MORPHINE SULFATE 4 MG/ML, 1ML IV PRN ×3 (09:44→21:59)
[2017-12-06] MEDS: OXYcodone/APAP 5/325MG TABLET PO PRN (11:32)
[2017-12-06 15:39] VITALS: BP 146/88
[2017-12-06] MEDS ORDERED: WARFARIN 3 MG TABLET PO-COUM ONE (18:00)
[2017-12-06 18:50] VITALS: BP 148/92
[2017-12-07] MEDS: AMPICILLIN/SULBACTAM 3 GM in SODIUM CHLORIDE 0.9% 100 ML IV SCH ×3 (01:14→17:45)
[2017-12-07] MEDS: HYDROcodone/APAP 10/325 MG TABLET PO PRN (02:18)
[2017-12-07 02:45] VITALS: BP 190/106
[2017-12-07 03:11] VITALS: BP 160/91
[2017-12-07 03:53] LABS: INTERNATIONAL NORMALIZED RATIO 3.76 (0.93-1.1); PROTHROMBIN TIME 37.7 Seconds (9.6-11.5)
[2017-12-07] MEDS: MORPHINE SULFATE 4 MG/ML, 1ML IV PRN ×4 (05:31→23:48)
[2017-12-07 07:06] VITALS: BP 153/100
[2017-12-07 08:49] LABS: MEAN CORPUSCULAR HEMOGLOBIN 35.1 pg (27.5-34.5); MEAN CORPUSCULAR VOLUME 106.5 fL (81-97); MEAN PLATELET VOLUME 6.2 fL (7.4-10.4); PLATELET COUNT 335 x10^3/uL (130-400); RED BLOOD COUNT 2.48 x10^6/uL (4.38-5.82); RED CELL DISTRIBUTION WIDTH 16.9 % (9.4-14.8)
[2017-12-07 08:55] LABS: ALBUMIN 2.3 g/dL (3.4-5.0); ANION GAP 6 mmol/L (5-15); CALCIUM 7.9 mg/dL (8.5-10.1); CHLORIDE 110 mmol/L (98-107); CREATININE 1.42 mg/dL (0.7-1.3)
[2017-12-07] MEDS: MUPIROCIN OINT 2%, 22GM TP SCH ×3 (08:59→21:00)
[2017-12-07] MEDS: SENNA/DOCUSATE TABLET PO SCH (08:59)
[2017-12-07] MEDS: LINEZOLID 600 MG TABLET PO SCH ×2 (09:09→21:15)
[2017-12-07] MEDS: SODIUM CHLORIDE 0.45% 1,000 ML IV SCH (09:13)
[2017-12-07 09:35] LABS: BASOPHILS # (AUTO) 0.02 x10^3/uL (0-0.1); BASOPHILS % (AUTO) 0 % (0-1); EOSINOPHILS # (AUTO) 0.03 x10^3/uL (0-0.4); EOSINOPHILS % (AUTO) 1 % (1-7); LYMPHOCYTES # (AUTO) 3.11 x10^3/uL (1-3.4); LYMPHOCYTES % (AUTO) 47 % (22-44); MD SCAN; MONOCYTES # (AUTO) 0.67 x10^3/uL (0.2-0.8); MONOCYTES % (AUTO) 10 % (2-9); NEUTROPHILS # (AUTO) 2.77 x10^3/uL (1.8-6.8); NEUTROPHILS % (AUTO) 42 % (42-75)
[2017-12-07] MEDS: ATENOLOL 25 MG TABLET PO SCH (11:03)
[2017-12-07 13:07] VITALS: BP 142/89
[2017-12-07] MEDS ORDERED: WARFARIN 1 MG TABLET PO-COUM ONE (18:00)
[2017-12-07 19:42] VITALS: BP 146/95
[2017-12-08] MEDS: AMPICILLIN/SULBACTAM 3 GM in SODIUM CHLORIDE 0.9% 100 ML IV SCH ×3 (01:04→18:00)
[2017-12-08 01:07] VITALS: BP 143/97
[2017-12-08 05:36] LABS: ALBUMIN 2.4 g/dL (3.4-5.0); ANION GAP 5 mmol/L (5-15); CALCIUM 8.1 mg/dL (8.5-10.1); CHLORIDE 110 mmol/L (98-107); CREATININE 1.62 mg/dL (0.7-1.3)
[2017-12-08 05:56] LABS: INTERNATIONAL NORMALIZED RATIO 2.83 (0.93-1.1); PROTHROMBIN TIME 28.8 Seconds (9.6-11.5)
[2017-12-08] MEDS ORDERED: ATENOLOL 25 MG TABLET PO SCH (06:00)
[2017-12-08 06:09] VITALS: BP 155/88
[2017-12-08] MEDS: ATENOLOL 25 MG TABLET PO SCH (06:10)
[2017-12-08 07:24] VITALS: BP 150/92
[2017-12-08] MEDS: LINEZOLID 600 MG TABLET PO SCH ×2 (08:55→21:21)
[2017-12-08] MEDS: MORPHINE SULFATE 4 MG/ML, 1ML IV PRN ×3 (08:55→21:14)
[2017-12-08] MEDS: SODIUM CHLORIDE 0.45% 1,000 ML IV SCH ×2 (08:56→18:05)
[2017-12-08] MEDS: SENNA/DOCUSATE TABLET PO SCH (08:56)
[2017-12-08] MEDS: MUPIROCIN OINT 2%, 22GM TP SCH ×3 (08:57→20:54)
[2017-12-08] MEDS: HYDROcodone/APAP 10/325 MG TABLET PO PRN (12:06)
[2017-12-08 12:48] VITALS: BP 148/89
[2017-12-08] MEDS ORDERED: WARFARIN 2 MG TABLET PO-COUM ONE (18:00)
[2017-12-08 19:58] VITALS: BP 165/99
[2017-12-09] MEDS: AMPICILLIN/SULBACTAM 3 GM in SODIUM CHLORIDE 0.9% 100 ML IV SCH ×4 (01:13→22:51)
[2017-12-09 02:22] VITALS: BP 126/83
[2017-12-09] MEDS: MORPHINE SULFATE 4 MG/ML, 1ML IV PRN ×3 (03:09→20:38)
[2017-12-09] MEDS: ATENOLOL 25 MG TABLET PO SCH (05:18)
[2017-12-09] MEDS: SODIUM CHLORIDE 0.45% 1,000 ML IV SCH ×3 (05:18→23:55)
[2017-12-09 05:47] LABS: INTERNATIONAL NORMALIZED RATIO 2.44 (0.93-1.1); PROTHROMBIN TIME 24.7 Seconds (9.6-11.5)
[2017-12-09 05:53] LABS: ALBUMIN 2.5 g/dL (3.4-5.0); ANION GAP 7 mmol/L (5-15); CALCIUM 8.1 mg/dL (8.5-10.1); CHLORIDE 110 mmol/L (98-107)
[2017-12-09 05:54] LABS: CREATININE 1.27 mg/dL (0.7-1.3)
[2017-12-09 05:55] LABS: MEAN CORPUSCULAR HGB CONC 34.5 g/dL (33.2-36.2); MEAN CORPUSCULAR VOLUME 107.3 fL (81-97); MEAN PLATELET VOLUME 6.3 fL (7.4-10.4); PLATELET COUNT 306 x10^3/uL (130-400); RED BLOOD COUNT 2.26 x10^6/uL (4.38-5.82); RED CELL DISTRIBUTION WIDTH 16.6 % (9.4-14.8)
[2017-12-09 06:34] LABS: BASOPHILS # (AUTO) 0.03 x10^3/uL (0-0.1); BASOPHILS % (AUTO) 0 % (0-1); EOSINOPHILS # (AUTO) 0.02 x10^3/uL (0-0.4); EOSINOPHILS % (AUTO) 0 % (1-7); LYMPHOCYTES # (AUTO) 3.39 x10^3/uL (1-3.4); LYMPHOCYTES % (AUTO) 48 % (22-44); MD SCAN; MONOCYTES # (AUTO) 0.78 x10^3/uL (0.2-0.8); MONOCYTES % (AUTO) 11 % (2-9); NEUTROPHILS # (AUTO) 2.87 x10^3/uL (1.8-6.8); NEUTROPHILS % (AUTO) 41 % (42-75)
[2017-12-09 08:07] VITALS: BP 147/95
[2017-12-09] MEDS: LINEZOLID 600 MG TABLET PO SCH ×2 (08:29→20:38)
[2017-12-09] MEDS: SENNA/DOCUSATE TABLET PO SCH (08:30)
[2017-12-09] MEDS: HYDROcodone/APAP 10/325 MG TABLET PO PRN ×2 (08:41→16:38)
[2017-12-09] MEDS: MUPIROCIN OINT 2%, 22GM TP SCH ×3 (09:00→20:38)
[2017-12-09 14:47] VITALS: BP 168/108
[2017-12-09] MEDS ORDERED: WARFARIN 3 MG TABLET PO-COUM ONE (18:00)
[2017-12-09 19:26] VITALS: BP 141/89
[2017-12-10 01:35] VITALS: BP 120/73
[2017-12-10] MEDS: AMPICILLIN/SULBACTAM 3 GM in SODIUM CHLORIDE 0.9% 100 ML IV SCH ×4 (04:34→23:09)
[2017-12-10 05:40] LABS: INTERNATIONAL NORMALIZED RATIO 1.7 (0.93-1.1); PROTHROMBIN TIME 17.3 Seconds (9.6-11.5)
[2017-12-10 05:43] LABS: CHLORIDE 111 mmol/L (98-107)
[2017-12-10 05:44] LABS: ALBUMIN 2.5 g/dL (3.4-5.0); ANION GAP 7 mmol/L (5-15)
[2017-12-10 05:46] LABS: CREATININE 1.38 mg/dL (0.7-1.3)
[2017-12-10] MEDS: ATENOLOL 25 MG TABLET PO SCH (06:05)
[2017-12-10] MEDS: MORPHINE SULFATE 4 MG/ML, 1ML IV PRN ×3 (06:06→19:49)
[2017-12-10] MEDS: SODIUM CHLORIDE 0.45% 1,000 ML IV SCH ×2 (08:34→16:02)
[2017-12-10] MEDS: MUPIROCIN OINT 2%, 22GM TP SCH ×3 (09:00→20:21)
[2017-12-10] MEDS: SENNA/DOCUSATE TABLET PO SCH (09:00)
[2017-12-10] MEDS: LINEZOLID 600 MG TABLET PO SCH ×2 (10:04→20:54)
[2017-12-10] MEDS: HYDROcodone/APAP 10/325 MG TABLET PO PRN ×2 (10:07→20:54)
[2017-12-10 10:11] VITALS: BP 122/77
[2017-12-10 14:00] VITALS: BP 121/78
[2017-12-10] MEDS ORDERED: WARFARIN 2 MG TABLET PO-COUM ONE (18:00)
[2017-12-10 18:32] VITALS: BP 151/93
[2017-12-11 01:13] VITALS: BP 150/83
[2017-12-11] MEDS: MORPHINE SULFATE 4 MG/ML, 1ML IV PRN ×2 (01:52→08:33)
[2017-12-11] MEDS: SODIUM CHLORIDE 0.45% 1,000 ML IV SCH ×3 (01:57→21:20)
[2017-12-11] MEDS: HYDROcodone/APAP 10/325 MG TABLET PO PRN (04:06)
[2017-12-11 04:40] LABS: MEAN CORPUSCULAR HEMOGLOBIN 36.8 pg (27.5-34.5); MEAN CORPUSCULAR HGB CONC 34.5 g/dL (33.2-36.2); MEAN CORPUSCULAR VOLUME 106.7 fL (81-97); MEAN PLATELET VOLUME 6.1 fL (7.4-10.4); PLATELET COUNT 292 x10^3/uL (130-400); RED CELL DISTRIBUTION WIDTH 16.5 % (9.4-14.8)
[2017-12-11] MEDS: AMPICILLIN/SULBACTAM 3 GM in SODIUM CHLORIDE 0.9% 100 ML IV SCH ×4 (04:42→22:07)
[2017-12-11 04:47] LABS: INTERNATIONAL NORMALIZED RATIO 1.72 (0.93-1.1); PROTHROMBIN TIME 17.5 Seconds (9.6-11.5)
[2017-12-11 04:50] LABS: ALBUMIN 2.6 g/dL (3.4-5.0); ANION GAP 4 mmol/L (5-15); CALCIUM 8.2 mg/dL (8.5-10.1); CHLORIDE 108 mmol/L (98-107); CREATININE 1.34 mg/dL (0.7-1.3)
[2017-12-11 05:04] LABS: BASOPHILS # (AUTO) 0.04 x10^3/uL (0-0.1); BASOPHILS % (AUTO) 1 % (0-1); EOSINOPHILS # (AUTO) 0.01 x10^3/uL (0-0.4); EOSINOPHILS % (AUTO) 0 % (1-7); LYMPHOCYTES # (AUTO) 4.11 x10^3/uL (1-3.4); LYMPHOCYTES % (AUTO) 56 % (22-44); MD SCAN; MONOCYTES # (AUTO) 0.74 x10^3/uL (0.2-0.8); MONOCYTES % (AUTO) 10 % (2-9); NEUTROPHILS # (AUTO) 2.47 x10^3/uL (1.8-6.8); NEUTROPHILS % (AUTO) 34 % (42-75)
[2017-12-11 05:11] VITALS: BP 133/89
[2017-12-11] MEDS: ATENOLOL 25 MG TABLET PO SCH (05:16)
[2017-12-11 08:00] VITALS: BP 135/86
[2017-12-11] MEDS: MUPIROCIN OINT 2%, 22GM TP SCH ×3 (08:32→21:00)
[2017-12-11] MEDS: SENNA/DOCUSATE TABLET PO SCH (08:32)
[2017-12-11] MEDS: LINEZOLID 600 MG TABLET PO SCH ×2 (08:32→21:20)
[2017-12-11] MEDS: CARVEDILOL 6.25 MG TABLET PO SCH ×2 (12:42→18:14)
[2017-12-11 14:00] VITALS: BP 144/87
[2017-12-11] MEDS ORDERED: MORPHINE SULFATE 4 MG/ML, 1ML IVPush ONE (15:00)
[2017-12-11] MEDS ORDERED: WARFARIN 5 MG TABLET PO-COUM ONE (18:00)
[2017-12-11 18:56] VITALS: BP 128/85
[2017-12-11] MEDS ORDERED: HYDROcodone/APAP 10/325 MG TABLET PO ONE (22:00)
[2017-12-12 00:17] VITALS: BP 112/76
[2017-12-12 04:07] LABS: BASOPHILS # (AUTO) 0.05 x10^3/uL (0-0.1); BASOPHILS % (AUTO) 1 % (0-1); EOSINOPHILS # (AUTO) 0.01 x10^3/uL (0-0.4); EOSINOPHILS % (AUTO) 0 % (1-7); LYMPHOCYTES % (AUTO) 49 % (22-44); MD NO; MEAN CORPUSCULAR HEMOGLOBIN 36.3 pg (27.5-34.5); MEAN CORPUSCULAR HGB CONC 34.2 g/dL (33.2-36.2); MEAN CORPUSCULAR VOLUME 106.2 fL (81-97); MEAN PLATELET VOLUME 6.1 fL (7.4-10.4); MONOCYTES # (AUTO) 0.88 x10^3/uL (0.2-0.8); MONOCYTES % (AUTO) 12 % (2-9); NEUTROPHILS # (AUTO) 2.84 x10^3/uL (1.8-6.8); NEUTROPHILS % (AUTO) 38 % (42-75); PLATELET COUNT 298 x10^3/uL (130-400); RED BLOOD COUNT 2.37 x10^6/uL (4.38-5.82); RED CELL DISTRIBUTION WIDTH 16.1 % (9.4-14.8)
[2017-12-12 04:08] LABS: HCT (SEDRATE) 25.1 % (39.2-51.8)
[2017-12-12 04:16] LABS: INTERNATIONAL NORMALIZED RATIO 1.6 (0.93-1.1); PROTHROMBIN TIME 16.3 Seconds (9.6-11.5)
[2017-12-12 04:18] LABS: ALBUMIN 2.5 g/dL (3.4-5.0); ANION GAP 7 mmol/L (5-15); C-REACTIVE PROTEIN, QUANT 0.33 mg/dL (0.02-0.49); CHLORIDE 107 mmol/L (98-107); CREATININE 1.27 mg/dL (0.7-1.3)
[2017-12-12] MEDS: AMPICILLIN/SULBACTAM 3 GM in SODIUM CHLORIDE 0.9% 100 ML IV SCH ×4 (05:06→22:16)
[2017-12-12] MEDS: CARVEDILOL 6.25 MG TABLET PO SCH ×2 (05:06→18:05)
[2017-12-12 05:07] VITALS: BP 115/77
[2017-12-12 06:48] VITALS: BP 129/87
[2017-12-12] MEDS: MUPIROCIN OINT 2%, 22GM TP SCH ×3 (09:00→20:07)
[2017-12-12] MEDS: SENNA/DOCUSATE TABLET PO SCH (09:00)
[2017-12-12] MEDS: SODIUM CHLORIDE 0.45% 1,000 ML IV SCH ×2 (09:44→18:07)
[2017-12-12] MEDS: LINEZOLID 600 MG TABLET PO SCH ×2 (09:44→20:07)
[2017-12-12 12:22] VITALS: BP 143/102
[2017-12-12 15:08] VITALS: BP 154/82
[2017-12-12] MEDS ORDERED: WARFARIN 7.5 MG TABLET PO-COUM ONE (18:00)
[2017-12-12 19:21] VITALS: BP 138/90
[2017-12-12] MEDS: ACETAMINOPHEN 325 MG TABLET PO PRN (20:07)
[2017-12-13] MEDS: SODIUM CHLORIDE 0.45% 1,000 ML IV SCH ×2 (02:22→15:12)
[2017-12-13 04:17] VITALS: BP 133/87
[2017-12-13] MEDS: AMPICILLIN/SULBACTAM 3 GM in SODIUM CHLORIDE 0.9% 100 ML IV SCH ×4 (04:45→22:30)
[2017-12-13 06:17] LABS: MEAN CORPUSCULAR VOLUME 105.9 fL (81-97); MEAN PLATELET VOLUME 6.1 fL (7.4-10.4); PLATELET COUNT 257 x10^3/uL (130-400); RED BLOOD COUNT 2.25 x10^6/uL (4.38-5.82); RED CELL DISTRIBUTION WIDTH 16.4 % (9.4-14.8)
[2017-12-13] MEDS: CARVEDILOL 6.25 MG TABLET PO SCH ×2 (06:21→18:16)
[2017-12-13 06:29] LABS: % IRON SATURATION 51 % (20-55); ALBUMIN 2.6 g/dL (3.4-5.0); ANION GAP 6 mmol/L (5-15); CALCIUM 7.9 mg/dL (8.5-10.1); CHLORIDE 110 mmol/L (98-107); CREATININE 1.23 mg/dL (0.7-1.3); IRON LEVEL 135 mcg/dL (65-175); TOTAL IRON BINDING CAPACITY 267 mcg/dL (250-450)
[2017-12-13 06:34] LABS: MD YES
[2017-12-13 06:37] LABS: <RBC MORPHOLOGY> NORMAL; LYMPH#(MANUAL) 3.87 x10^3/uL (1-3.4); LYMPHS% (MANUAL) 53 % (22-44); MONOS#(MANUAL) 0.15 x10^3/uL (0.3-2.7); MONOS% (MANUAL) 2 % (2-9); SEG#(MANUAL) 3.29 x10^3/uL (1.8-6.8); SEGS% (MANUAL) 45 % (42-75)
[2017-12-13 06:38] LABS: <PLATELET ESTIMATE> ADEQUATE; <PLT MORPHOLOGY> NORMAL PLT MORPH
[2017-12-13 07:30] VITALS: BP 152/94
[2017-12-13] MEDS: MUPIROCIN OINT 2%, 22GM TP SCH ×4 (08:29→20:42)
[2017-12-13] MEDS: SENNA/DOCUSATE TABLET PO SCH ×3 (08:29→08:59)
[2017-12-13] MEDS: LINEZOLID 600 MG TABLET PO SCH ×2 (08:29→20:42)
[2017-12-13 08:43] LABS: INTERNATIONAL NORMALIZED RATIO 2.14 (0.93-1.1); PROTHROMBIN TIME 21.7 Seconds (9.6-11.5)
[2017-12-13] MEDS: ACETAMINOPHEN 325 MG TABLET PO PRN (09:03)
[2017-12-13] MEDS ORDERED: POTASSIUM PHOSPHATE 44 MEQ in SODIUM CHLORIDE 0.9% 500 ML IV ONE (09:30)
[2017-12-13 12:20] VITALS: BP 132/89
[2017-12-13] MEDS ORDERED: WARFARIN 5 MG TABLET PO-COUM ONE (18:00)
[2017-12-13 20:24] VITALS: BP 141/95
[2017-12-14] MEDS: SODIUM CHLORIDE 0.45% 1,000 ML IV SCH ×3 (02:30→22:24)
[2017-12-14 03:20] VITALS: BP 135/83
[2017-12-14] MEDS: AMPICILLIN/SULBACTAM 3 GM in SODIUM CHLORIDE 0.9% 100 ML IV SCH ×4 (04:43→22:25)
[2017-12-14] MEDS: CARVEDILOL 6.25 MG TABLET PO SCH ×2 (05:25→17:46)
[2017-12-14 05:50] LABS: INTERNATIONAL NORMALIZED RATIO 2.24 (0.93-1.1); PROTHROMBIN TIME 22.7 Seconds (9.6-11.5)
[2017-12-14 07:55] VITALS: BP 124/81
[2017-12-14] MEDS: LINEZOLID 600 MG TABLET PO SCH (09:32)
[2017-12-14] MEDS: MUPIROCIN OINT 2%, 22GM TP SCH ×3 (09:33→19:47)
[2017-12-14] MEDS: SENNA/DOCUSATE TABLET PO SCH (09:33)
[2017-12-14 12:38] VITALS: BP 134/95
[2017-12-14 17:45] VITALS: BP 156/101
[2017-12-14] MEDS ORDERED: WARFARIN 5 MG TABLET PO-COUM ONE (18:00)
[2017-12-14 21:35] VITALS: BP 132/84
[2017-12-15 02:59] VITALS: BP 143/91
[2017-12-15] MEDS: AMPICILLIN/SULBACTAM 3 GM in SODIUM CHLORIDE 0.9% 100 ML IV SCH ×3 (04:38→16:47)
[2017-12-15] MEDS: CARVEDILOL 6.25 MG TABLET PO SCH ×2 (05:42→17:46)
[2017-12-15 06:13] LABS: INTERNATIONAL NORMALIZED RATIO 2.43 (0.93-1.1); PROTHROMBIN TIME 24.6 Seconds (9.6-11.5)
[2017-12-15 07:54] VITALS: BP 119/77
[2017-12-15] MEDS: SODIUM CHLORIDE 0.45% 1,000 ML IV SCH ×2 (10:01→17:46)
[2017-12-15] MEDS: SENNA/DOCUSATE TABLET PO SCH (10:01)
[2017-12-15] MEDS: MUPIROCIN OINT 2%, 22GM TP SCH ×3 (10:03→21:00)
[2017-12-15 14:44] VITALS: BP 129/87
[2017-12-15] MEDS ORDERED: WARFARIN 5 MG TABLET PO-COUM SCH (18:00)
[2017-12-15 19:03] VITALS: BP 143/90
[2017-12-16] MEDS: AMPICILLIN/SULBACTAM 3 GM in SODIUM CHLORIDE 0.9% 100 ML IV SCH ×4 (00:20→17:32)
[2017-12-16] MEDS: SODIUM CHLORIDE 0.45% 1,000 ML IV SCH ×2 (03:00→15:33)
[2017-12-16 03:51] VITALS: BP 125/81
[2017-12-16] MEDS ORDERED: CATHFLO-ALTEPLASE 2 MG/2 ML CATHFLUSH ONE (04:30)
[2017-12-16 06:29] LABS: BASOPHILS # (AUTO) 0.02 x10^3/uL (0-0.1); BASOPHILS % (AUTO) 0 % (0-1); EOSINOPHILS # (AUTO) 0.01 x10^3/uL (0-0.4); EOSINOPHILS % (AUTO) 0 % (1-7); LYMPHOCYTES # (AUTO) 3.96 x10^3/uL (1-3.4); LYMPHOCYTES % (AUTO) 55 % (22-44); MD NO; MEAN CORPUSCULAR HEMOGLOBIN 35.8 pg (27.5-34.5); MEAN CORPUSCULAR HGB CONC 34.2 g/dL (33.2-36.2); MEAN CORPUSCULAR VOLUME 104.4 fL (81-97); MEAN PLATELET VOLUME 6.3 fL (7.4-10.4); MONOCYTES # (AUTO) 0.89 x10^3/uL (0.2-0.8); MONOCYTES % (AUTO) 12 % (2-9); NEUTROPHILS # (AUTO) 2.32 x10^3/uL (1.8-6.8); NEUTROPHILS % (AUTO) 32 % (42-75); PLATELET COUNT 221 x10^3/uL (130-400); RED BLOOD COUNT 2.27 x10^6/uL (4.38-5.82); RED CELL DISTRIBUTION WIDTH 16.5 % (9.4-14.8)
[2017-12-16 06:32] LABS: INTERNATIONAL NORMALIZED RATIO 2.33 (0.93-1.1); PROTHROMBIN TIME 23.6 Seconds (9.6-11.5)
[2017-12-16] MEDS: CARVEDILOL 6.25 MG TABLET PO SCH ×2 (06:33→17:31)
[2017-12-16 07:55] VITALS: BP 127/81
[2017-12-16] MEDS: SENNA/DOCUSATE TABLET PO SCH (09:00)
[2017-12-16] MEDS: MUPIROCIN OINT 2%, 22GM TP SCH ×3 (09:00→20:30)
[2017-12-16 14:11] VITALS: BP 136/91
[2017-12-16] MEDS ORDERED: WARFARIN 5 MG TABLET PO-COUM SCH (18:00)
[2017-12-16 18:57] VITALS: BP 143/89
[2017-12-17] MEDS: SODIUM CHLORIDE 0.45% 1,000 ML IV SCH (00:15)
[2017-12-17] MEDS: AMPICILLIN/SULBACTAM 3 GM in SODIUM CHLORIDE 0.9% 100 ML IV SCH ×4 (00:28→18:02)
[2017-12-17 00:34] VITALS: BP 158/72
[2017-12-17] MEDS: CARVEDILOL 6.25 MG TABLET PO SCH ×2 (06:18→18:03)
[2017-12-17 06:32] LABS: INTERNATIONAL NORMALIZED RATIO 2.42 (0.93-1.1); PROTHROMBIN TIME 24.5 Seconds (9.6-11.5)
[2017-12-17 07:50] VITALS: BP 145/88
[2017-12-17] MEDS: SENNA/DOCUSATE TABLET PO SCH (07:57)
[2017-12-17] MEDS: MUPIROCIN OINT 2%, 22GM TP SCH ×3 (07:57→21:00)
[2017-12-17 14:45] VITALS: BP 153/100
[2017-12-17] MEDS ORDERED: WARFARIN 5 MG TABLET PO-COUM SCH (18:00)
[2017-12-17 18:42] VITALS: BP 138/87
[2017-12-18] MEDS: AMPICILLIN/SULBACTAM 3 GM in SODIUM CHLORIDE 0.9% 100 ML IV SCH ×5 (00:10→23:55)
[2017-12-18 00:49] VITALS: BP 124/67
[2017-12-18 04:57] LABS: INTERNATIONAL NORMALIZED RATIO 2.42 (0.93-1.1); PROTHROMBIN TIME 24.5 Seconds (9.6-11.5)
[2017-12-18] MEDS: CARVEDILOL 6.25 MG TABLET PO SCH ×2 (06:20→17:58)
[2017-12-18 07:36] VITALS: BP 139/89
[2017-12-18] MEDS: SENNA/DOCUSATE TABLET PO SCH (09:00)
[2017-12-18] MEDS: MUPIROCIN OINT 2%, 22GM TP SCH ×3 (09:16→20:06)
[2017-12-18 12:57] VITALS: BP 142/97
[2017-12-18] MEDS ORDERED: WARFARIN 5 MG TABLET PO-COUM SCH (18:00)
[2017-12-18 19:00] VITALS: BP 144/87
[2017-12-19 02:48] VITALS: BP 113/77
[2017-12-19 05:02] LABS: MEAN CORPUSCULAR HEMOGLOBIN 35.8 pg (27.5-34.5); MEAN CORPUSCULAR VOLUME 105.4 fL (81-97); MEAN PLATELET VOLUME 6.4 fL (7.4-10.4); PLATELET COUNT 223 x10^3/uL (130-400); RED BLOOD COUNT 2.13 x10^6/uL (4.38-5.82); RED CELL DISTRIBUTION WIDTH 16.3 % (9.4-14.8)
[2017-12-19 05:04] LABS: CALCIUM 8.3 mg/dL (8.5-10.1); CHLORIDE 111 mmol/L (98-107)
[2017-12-19 05:10] LABS: ALANINE AMINOTRANSFERASE 37 U/L (12-78); ALBUMIN 2.8 g/dL (3.4-5.0); ALKALINE PHOSPHATASE 66 U/L (45-117); ANION GAP 6 mmol/L (5-15); BILIRUBIN,TOTAL 0.3 mg/dL (0.2-1.0); C-REACTIVE PROTEIN, QUANT 0.27 mg/dL (0.02-0.49); INTERNATIONAL NORMALIZED RATIO 2.4 (0.93-1.1); PROTHROMBIN TIME 24.3 Seconds (9.6-11.5); TOTAL PROTEIN 6.8 g/dL (6.4-8.2)
[2017-12-19 05:29] LABS: HCT (SEDRATE) 22.5 % (39.2-51.8)
[2017-12-19] MEDS: AMPICILLIN/SULBACTAM 3 GM in SODIUM CHLORIDE 0.9% 100 ML IV SCH ×4 (05:56→23:54)
[2017-12-19] MEDS: CARVEDILOL 6.25 MG TABLET PO SCH ×2 (05:57→17:59)
[2017-12-19 06:06] LABS: BASOPHILS # (AUTO) 0.03 x10^3/uL (0-0.1); BASOPHILS % (AUTO) 0 % (0-1); EOSINOPHILS # (AUTO) 0.03 x10^3/uL (0-0.4); EOSINOPHILS % (AUTO) 0 % (1-7); LYMPHOCYTES # (AUTO) 5.01 x10^3/uL (1-3.4); LYMPHOCYTES % (AUTO) 50 % (22-44); MD SCAN; MONOCYTES # (AUTO) 1.66 x10^3/uL (0.2-0.8); MONOCYTES % (AUTO) 16 % (2-9); NEUTROPHILS % (AUTO) 34 % (42-75)
[2017-12-19 07:30] VITALS: BP 124/83
[2017-12-19] MEDS: SENNA/DOCUSATE TABLET PO SCH (08:30)
[2017-12-19] MEDS: MUPIROCIN OINT 2%, 22GM TP SCH ×3 (08:31→20:15)
[2017-12-19 12:26] VITALS: BP 144/97
[2017-12-19] MEDS ORDERED: WARFARIN 5 MG TABLET PO-COUM ONE (18:00)
[2017-12-19 19:18] VITALS: BP 153/100
[2017-12-19 19:32] VITALS: BP 166/105
[2017-12-19] MEDS: hydrALAzine 20 MG/ML, 1ML IVPush PRN (19:32)
[2017-12-19 20:09] VITALS: BP 159/85
[2017-12-20 02:14] VITALS: BP 165/91
[2017-12-20 04:54] LABS: INTERNATIONAL NORMALIZED RATIO 2.49 (0.93-1.1); PROTHROMBIN TIME 25.2 Seconds (9.6-11.5)
[2017-12-20] MEDS: AMPICILLIN/SULBACTAM 3 GM in SODIUM CHLORIDE 0.9% 100 ML IV SCH (05:59)
[2017-12-20] MEDS: CARVEDILOL 6.25 MG TABLET PO SCH (06:08)
[2017-12-20 07:25] VITALS: BP 157/94
[2017-12-20] MEDS: MUPIROCIN OINT 2%, 22GM TP SCH (08:50)
[2017-12-20] MEDS: SENNA/DOCUSATE TABLET PO SCH (08:50)
[2017-12-20] MEDS ORDERED: AMOXICILLIN/CLAV 500-125MG TABLET PO SCH (11:00)
[2017-12-20] MEDS ORDERED: CARV6.2512 PO (12:10)
[2017-12-20] MEDS ORDERED: AMOX-367 PO (12:10)
[2017-12-20 13:01] VITALS: BP 172/115
[2017-12-20 14:30] VITALS: BP 171/116
[2017-12-20] MEDS ORDERED: WARFARIN 5 MG TABLET PO-COUM ONE (18:00)
== END 2017-12-20 16:00 | disposition home or self-care (01) | DRG 871 ==
LOC: ED 23:59 → EDIP 11-26 02:01 → 4NOR 11-26 02:30 → 5SO 11-28 18:18 → 4NOR 11-29 14:50 → 5SO 12-05 01:14 → 4EST 12-06 11:44
PROVIDERS: ADMIT Internal Medicine; ATTEND Hospitalist
PROC: 0Y900ZZ Drainage of Right Buttock, Open Approach (ICD-10-PCS; principal; 2017-11-26)
PROC: 30233L1 Transfusion of Nonautologous Fresh Plasma into Peripheral Vein, Percutaneous Approach (ICD-10-PCS; 2017-11-29)
PROC: 30233K1 Transfusion of Nonautologous Frozen Plasma into Peripheral Vein, Percutaneous Approach (ICD-10-PCS; 2017-11-29)
PROC: 0TJB8ZZ Inspection of Bladder, Via Natural or Artificial Opening Endoscopic (ICD-10-PCS; 2017-11-29)
PROC: 0DJD8ZZ Inspection of Lower Intestinal Tract, Via Natural or Artificial Opening Endoscopic (ICD-10-PCS; 2017-11-29)
PROC: 02HV33Z Insertion of Infusion Device into Superior Vena Cava, Percutaneous Approach (ICD-10-PCS; 2017-12-02)
PROC: B548ZZA Ultrasonography of Superior Vena Cava, Guidance (ICD-10-PCS; 2017-12-02)
PROC: 2W05X6Z Change Pressure Dressing on Back (ICD-10-PCS; 2017-12-02)
DX: A41.1 Sepsis due to other specified staphylococcus (principal); E43 Unspecified severe protein-calorie malnutrition; D68.59 Other primary thrombophilia; I67.4 Hypertensive encephalopathy; I69.354 Hemiplegia and hemiparesis following cerebral infarction affecting left non-dominant side; L02.215 Cutaneous abscess of perineum; L02.31 Cutaneous abscess of buttock; M35.2 Behcet's disease; M86.651 Other chronic osteomyelitis, right thigh; M87.152 Osteonecrosis due to drugs, left femur; G45.9 Transient cerebral ischemic attack, unspecified; N17.9 Acute kidney failure, unspecified; F12.10 Cannabis abuse, uncomplicated; F17.210 Nicotine dependence, cigarettes, uncomplicated; T38.0X5A Adverse effect of glucocorticoids and synthetic analogues, initial encounter; D53.9 Nutritional anemia, unspecified; E78.5 Hyperlipidemia, unspecified; F17.200 Nicotine dependence, unspecified, uncomplicated; G43.109 Migraine with aura, not intractable, without status migrainosus; H66.91 Otitis media, unspecified, right ear; I07.1 Rheumatic tricuspid insufficiency; I11.9 Hypertensive heart disease without heart failure; Z88.8 Allergy status to other drugs, medicaments and biological substances; I73.9 Peripheral vascular disease, unspecified; Z76.5 Malingerer [conscious simulation]; Y92.89 Other specified places as the place of occurrence of the external cause; Z79.52 Long term (current) use of systemic steroids; Z79.82 Long term (current) use of aspirin; Z90.49 Acquired absence of other specified parts of digestive tract; Z79.899 Other long term (current) drug therapy; Z82.3 Family history of stroke; Z86.718 Personal history of other venous thrombosis and embolism; Z82.5 Family history of asthma and other chronic lower respiratory diseases; Z68.23 Body mass index [BMI] 23.0-23.9, adult
CPT/HCPCS: 10060; 36415; 36569; 70450; 70551; 72193; 72197; 76870; 76937; 77001; 80048; 80053; 80061; 80202; 82040; 82607; 82746; 82962; 83036; 83540; 83550; 83605; 83735; 84100; 84439; 84443; 84484; 85025; 85610; 85651; 85730; 86140; 86850; 86900; 87040; 87070; 87075; 87076; 87077; 87102; 87186; 87205; 93005; 93306; 93308; 93880; 99291; A9585; J0171; J0295; J0696; J1100; J1170; J1650; J2020; J2250; J2405; J2543; J2704; J2997; J3010; J3370; J3490; Q9967; C1751; G0009; J0330; J0360; J1720; J2175; J2270; J3475; J7030; J7040; J7050; J7512; P9017; Q0163

== ENCOUNTER 2017-12-21 13:35 | Emergency (ER) | payer MEDICAID ==
[~2017-12-21] VITALS: Ht 179.1 cm; Wt 77.0 kg
[~2017-12-21 13:35] MED LIST changes: +AMOX-367 PO; +CARV6.2512 PO
[2017-12-21 13:52] VITALS: BP 110/74
== END 2017-12-21 15:29 | disposition home or self-care (01) ==
LOC: ED 15:23
DX: L02.214 Cutaneous abscess of groin (principal); E78.5 Hyperlipidemia, unspecified; I10 Essential (primary) hypertension; Z87.891 Personal history of nicotine dependence; Z86.73 Personal history of transient ischemic attack (TIA), and cerebral infarction without residual deficits; Z90.49 Acquired absence of other specified parts of digestive tract
CPT/HCPCS: 99281; 99283; 99285

== ENCOUNTER → 2017-12-28 | Outpatient (CLI) | payer MEDICAID | END | disposition home or self-care (01) | LOC: WOUND 13:57 | PROVIDERS: ATTEND Internal Medicine | DX: T81.89XD Other complications of procedures, not elsewhere classified, subsequent encounter (principal); I11.9 Hypertensive heart disease without heart failure; L73.2 Hidradenitis suppurativa; E78.5 Hyperlipidemia, unspecified; G43.909 Migraine, unspecified, not intractable, without status migrainosus; I73.9 Peripheral vascular disease, unspecified; M86.651 Other chronic osteomyelitis, right thigh; E66.9 Obesity, unspecified; Z68.1 Body mass index [BMI] 19.9 or less, adult; Z90.49 Acquired absence of other specified parts of digestive tract; Z79.82 Long term (current) use of aspirin; Z79.52 Long term (current) use of systemic steroids; Z87.891 Personal history of nicotine dependence; Z86.73 Personal history of transient ischemic attack (TIA), and cerebral infarction without residual deficits; Z88.8 Allergy status to other drugs, medicaments and biological substances; Z86.718 Personal history of other venous thrombosis and embolism; Y83.8 Other surgical procedures as the cause of abnormal reaction of the patient, or of later complication, without mention of misadventure at the time of the procedure | CPT/HCPCS: 97597; 99215 ==

== ENCOUNTER → 2018-01-04 | Outpatient (CLI) | payer MEDICAID | END | disposition home or self-care (01) | LOC: WOUND 13:32 | PROVIDERS: ATTEND Internal Medicine | DX: T81.89XD Other complications of procedures, not elsewhere classified, subsequent encounter (principal); L73.2 Hidradenitis suppurativa; I10 Essential (primary) hypertension; E78.5 Hyperlipidemia, unspecified; Z87.891 Personal history of nicotine dependence; Y83.8 Other surgical procedures as the cause of abnormal reaction of the patient, or of later complication, without mention of misadventure at the time of the procedure | CPT/HCPCS: 97597 ==

== ENCOUNTER → 2018-01-11 | Outpatient (CLI) | payer MEDICAID | END | disposition home or self-care (01) | LOC: WOUND 10:23 | PROVIDERS: ATTEND Internal Medicine Cardiovascular Disease | DX: T81.31XD Disruption of external operation (surgical) wound, not elsewhere classified, subsequent encounter (principal); L73.2 Hidradenitis suppurativa; I10 Essential (primary) hypertension; F12.90 Cannabis use, unspecified, uncomplicated; I73.9 Peripheral vascular disease, unspecified; M86.651 Other chronic osteomyelitis, right thigh; G43.909 Migraine, unspecified, not intractable, without status migrainosus; E78.5 Hyperlipidemia, unspecified; E66.9 Obesity, unspecified; Z68.23 Body mass index [BMI] 23.0-23.9, adult; Z90.49 Acquired absence of other specified parts of digestive tract; Z87.891 Personal history of nicotine dependence; Z86.718 Personal history of other venous thrombosis and embolism; Z86.73 Personal history of transient ischemic attack (TIA), and cerebral infarction without residual deficits; Y83.8 Other surgical procedures as the cause of abnormal reaction of the patient, or of later complication, without mention of misadventure at the time of the procedure | CPT/HCPCS: 99214 ==

== ENCOUNTER 2018-01-13 19:21 | Inpatient (IN) | payer MEDICAID ==
[~2018-01-13] VITALS: Ht 177.8 cm; Wt 68.3 kg
[2018-01-13] MEDS ORDERED: SODIUM CHLORIDE FLUSH 10ML SYR IVF ONE (20:30)
[2018-01-13] MEDS ORDERED: ASPIRIN 81 MG TABLET CHEW PO ONE (20:30)
[2018-01-13] MEDS ORDERED: ASPIRIN 81 MG TABLET CHEW ONE (20:49)
[2018-01-13] MEDS ORDERED: MORPHINE SULFATE 4 MG/ML, 1ML ONE ×2 (20:50→23:01)
[2018-01-13 20:55] LABS: MEAN CORPUSCULAR HEMOGLOBIN 34.7 pg (27.5-34.5); MEAN CORPUSCULAR HGB CONC 33.7 g/dL (33.2-36.2); MEAN PLATELET VOLUME 6.3 fL (7.4-10.4); PLATELET COUNT 316 x10^3/uL (130-400); RED BLOOD COUNT 2.74 x10^6/uL (4.38-5.82); RED CELL DISTRIBUTION WIDTH 18.3 % (9.4-14.8)
[2018-01-13] MEDS: MORPHINE SULFATE 4 MG/ML, 1ML IVPush PRN ×2 (21:04→23:07)
[2018-01-13 21:06] LABS: CHLORIDE 111 mmol/L (98-107)
[2018-01-13 21:07] LABS: ALBUMIN 3.3 g/dL (3.4-5.0); ANION GAP 8 mmol/L (5-15); CALCIUM 8.4 mg/dL (8.5-10.1); CREATININE 1.05 mg/dL (0.7-1.3); INTERNATIONAL NORMALIZED RATIO 2.61 (0.93-1.1); PROTHROMBIN TIME 26.6 Seconds (9.6-11.5)
[2018-01-13 21:10] LABS: TROPONIN I 0.026 ng/mL (0.000-0.045)
[2018-01-13 21:31] LABS: MD YES
[2018-01-13] MEDS ORDERED: DIPHENHYDRAMINE 25 MG CAPSULE ONE (21:40)
[2018-01-13 21:56] LABS: LYMPH#(MANUAL) 5.54 x10^3/uL (1-3.4); LYMPHS% (MANUAL) 49 % (22-44); MONOS#(MANUAL) 1.13 x10^3/uL (0.3-2.7); MONOS% (MANUAL) 10 % (2-9); SEG#(MANUAL) 4.63 x10^3/uL (1.8-6.8); SEGS% (MANUAL) 41 % (42-75)
[2018-01-13 21:58] LABS: <PLATELET ESTIMATE> ADEQUATE; <PLT MORPHOLOGY> NORMAL PLT MORPH; POLYCHROMASIA 1+
[2018-01-13] MEDS ORDERED: DIPHENHYDRAMINE 50 MG/ML, 1ML IVPush ONE (22:00)
[2018-01-13] MEDS ORDERED: DIPHENHYDRAMINE 25 MG CAPSULE PO ONE (22:00)
[2018-01-13] MEDS ORDERED: SODIUM CHLORIDE 0.9% 1,000 ML IV SCH (22:59)
[2018-01-13] MEDS ORDERED: hydrALAzine 20 MG/ML, 1ML IVPush PRN (23:00)
[2018-01-13] MEDS ORDERED: morphine SULFATE 10 MG/ML, 1ML IVPush PRN (23:00)
[2018-01-13] MEDS ORDERED: ZOLPIDEM 5MG TABLET PO PRN (23:00)
[2018-01-13] MEDS ORDERED: ONDANSETRON ODT 4 MG PO PRN (23:00)
[2018-01-13] MEDS ORDERED: SODIUM CHLORIDE FLUSH 10ML SYR IVF PRN (23:00)
[2018-01-13] MEDS ORDERED: POLYETHYLENE GLYCOL 17 GM PACKET PO PRN (23:00)
[2018-01-13] MEDS ORDERED: ONDANSETRON 2MG/ML, 2ML IVPush PRN (23:00)
[2018-01-14] VITALS (8 sets, daily range): BP systolic 121–155; BP diastolic 78–107
[2018-01-14] MEDS ORDERED: NITROGLYCERIN 0.4 MG BOTTLE (25 TABS) SL PRN
[2018-01-14] MEDS ORDERED: NITROGLYCERIN 0.4 MG/SPRAY SL PRN ×2
[2018-01-14] MEDS ORDERED: NITROGLYCERIN 0.4 MG BOTTLE (25 TABS) SL ONE (00:03)
[2018-01-14] MEDS: NITROGLYCERIN 0.4 MG BOTTLE (25 TABS) SL PRN ×3 (00:32→00:49)
[2018-01-14 01:27] LABS: TROPONIN I < 0.015 ng/mL (0.000-0.045)
[2018-01-14 01:28] LABS: FREE T4 (FREE THYROXINE) 0.72 ng/dL (0.76-1.46)
[2018-01-14] MEDS: CYCLOBENZAPRINE 10 MG TABLET PO SCH ×2 (02:34→08:33)
[2018-01-14] MEDS: GABAPENTIN 400 MG CAPSULE PO SCH ×2 (02:35→08:33)
[2018-01-14] MEDS: AMOXICILLIN/CLAV 500-125MG TABLET PO SCH ×2 (02:47→10:51)
[2018-01-14 04:48] LABS: MEAN CORPUSCULAR HEMOGLOBIN 34.1 pg (27.5-34.5); MEAN CORPUSCULAR HGB CONC 32.8 g/dL (33.2-36.2); MEAN CORPUSCULAR VOLUME 103.8 fL (81-97); MEAN PLATELET VOLUME 6.7 fL (7.4-10.4); PLATELET COUNT 289 x10^3/uL (130-400); RED BLOOD COUNT 3.06 x10^6/uL (4.38-5.82); RED CELL DISTRIBUTION WIDTH 17.7 % (9.4-14.8)
[2018-01-14 04:53] LABS: INTERNATIONAL NORMALIZED RATIO 2.69 (0.93-1.1); PROTHROMBIN TIME 27.4 Seconds (9.6-11.5)
[2018-01-14 05:00] LABS: CHLORIDE 110 mmol/L (98-107)
[2018-01-14 05:12] LABS: ANION GAP 7 mmol/L (5-15); CALCIUM 8.6 mg/dL (8.5-10.1); CREATININE 1.09 mg/dL (0.7-1.3)
[2018-01-14 05:22] LABS: MD YES
[2018-01-14 05:26] LABS: BAND#(MANUAL) 0.13 x10^3/uL; BANDS%(MANUAL) 1 % (0-7); LYMPH#(MANUAL) 7.67 x10^3/uL (1-3.4); LYMPHS% (MANUAL) 59 % (22-44); MICROCYTOSIS 1+; MONOS#(MANUAL) 1.04 x10^3/uL (0.3-2.7); MONOS% (MANUAL) 8 % (2-9); POLYCHROMASIA 1+; SEG#(MANUAL) 4.16 x10^3/uL (1.8-6.8); SEGS% (MANUAL) 32 % (42-75)
[2018-01-14 05:27] LABS: ANISOCYTOSIS 1+
[2018-01-14 05:28] LABS: <PLATELET ESTIMATE> ADEQUATE; <PLT MORPHOLOGY> NORMAL PLT MORPH
[2018-01-14] MEDS ORDERED: CARVEDILOL 6.25 MG TABLET PO SCH (06:00)
[2018-01-14] MEDS ORDERED: TEMPLATE NON-FORMULARY MED. (Warfarin Sodium** (Coumadin**) 6 MG) PO SCH (09:00)
[2018-01-14] MEDS ORDERED: REGADENOSON 0.4 MG/5 ML SYRINGE ONE (09:32)
[2018-01-14] MEDS ORDERED: WARFARIN 3 MG TABLET PO-COUM SCH (18:00)
== END 2018-01-14 16:22 | disposition home or self-care (01) | DRG 311 ==
LOC: ED 22:11 → EDIP 22:59 → 5SO 23:40
PROVIDERS: ADMIT Hospitalist; ATTEND Hospitalist
DX: I20.0 Unstable angina (principal); M35.2 Behcet's disease; M54.30 Sciatica, unspecified side; E78.5 Hyperlipidemia, unspecified; I11.9 Hypertensive heart disease without heart failure; D63.8 Anemia in other chronic diseases classified elsewhere; F12.90 Cannabis use, unspecified, uncomplicated; D89.9 Disorder involving the immune mechanism, unspecified; G43.909 Migraine, unspecified, not intractable, without status migrainosus; I73.9 Peripheral vascular disease, unspecified; I07.1 Rheumatic tricuspid insufficiency; Z86.73 Personal history of transient ischemic attack (TIA), and cerebral infarction without residual deficits; Z90.49 Acquired absence of other specified parts of digestive tract; Z79.01 Long term (current) use of anticoagulants; Z79.52 Long term (current) use of systemic steroids; Z76.5 Malingerer [conscious simulation]; Z87.891 Personal history of nicotine dependence; Z88.8 Allergy status to other drugs, medicaments and biological substances; Z79.899 Other long term (current) drug therapy
CPT/HCPCS: 36415; 71045; 78452; 80048; 82040; 83735; 84100; 84439; 84443; 84484; 85025; 85610; 93005; 93017; 96374; 96376; G0378; J2785; A9502; C9898; J2270; J7030; J7512; Q0163

== ENCOUNTER 2018-01-24 10:39 | Emergency (ER) | payer MEDICAID ==
[~2018-01-24] VITALS: Ht 179.1 cm; Wt 84.5 kg
[~2018-01-24 10:39] MED LIST changes: +HYDR-3653 PO; -HYDR-882 PO
[2018-01-24] MEDS ORDERED: DIPH25CA61 PO (11:02)
[2018-01-24] MEDS ORDERED: ATEN25TA PO (11:03)
[2018-01-24] MEDS ORDERED: DIPHENHYDRAMINE 50 MG/ML, 1ML IVPush ONE (11:30)
[2018-01-24] MEDS ORDERED: METOCLOPRAMIDE 5 MG/ML, 2ML IVPush ONE (11:30)
[2018-01-24] MEDS ORDERED: METOCLOPRAMIDE 5 MG/ML, 2ML ONE (11:40)
[2018-01-24] MEDS ORDERED: DIPHENHYDRAMINE 50 MG/ML, 1ML ONE (11:40)
[2018-01-24 11:53] LABS: MEAN CORPUSCULAR HEMOGLOBIN 32.9 pg (27.5-34.5); MEAN CORPUSCULAR HGB CONC 32.6 g/dL (33.2-36.2); MEAN PLATELET VOLUME 6.1 fL (7.4-10.4); PLATELET COUNT 305 x10^3/uL (130-400); RED BLOOD COUNT 2.88 x10^6/uL (4.38-5.82); RED CELL DISTRIBUTION WIDTH 18.1 % (9.4-14.8)
[2018-01-24 12:02] LABS: INTERNATIONAL NORMALIZED RATIO 2.32 (0.93-1.1); PROTHROMBIN TIME 23.5 Seconds (9.6-11.5)
[2018-01-24 12:04] LABS: ANION GAP 8 mmol/L (5-15); CALCIUM 8.6 mg/dL (8.5-10.1); CHLORIDE 109 mmol/L (98-107); CREATININE 1.02 mg/dL (0.7-1.3)
[2018-01-24 12:28] LABS: MD YES
[2018-01-24 12:30] LABS: BASOS#(MANUAL) 0.09 x10^3/uL (0-0.1); BASOS% (MANUAL) 1 % (0-1); EOS#(MANUAL) 0.09 x10^3/uL (0.0-0.4); EOS% (MANUAL) 1 % (1-7); METAMYELOCYTES# (MANUAL) 0.18 x10^3/uL (0-0); METAMYELOCYTES% (MANUAL) 2 % (0-1); MONOS#(MANUAL) 0.89 x10^3/uL (0.3-2.7); MONOS% (MANUAL) 10 % (2-9); SEG#(MANUAL) 1.96 x10^3/uL (1.8-6.8); SEGS% (MANUAL) 22 % (42-75)
[2018-01-24 12:31] LABS: ANISOCYTOSIS 1+; HYPOCHROMIA 1+; POLYCHROMASIA 1+
[2018-01-24 12:32] LABS: <PLATELET ESTIMATE> ADEQUATE; <PLT MORPHOLOGY> NORMAL PLT MORPH
[2018-01-24 12:33] LABS: LYMPHS% (MANUAL) 64 % (22-44)
[2018-01-24] MEDS ORDERED: DEXAMETHASONE 4 MG/ML, 1ML IVPush ONE (13:00)
[2018-01-24] MEDS ORDERED: DEXAMETHASONE 4 MG/ML, 5ML ONE (13:02)
[2018-01-24 13:54] VITALS: BP 144/96
== END 2018-01-24 13:55 | disposition home or self-care (01) ==
LOC: ED 12:10
DX: R51 Headache (principal); R11.2 Nausea with vomiting, unspecified; I11.9 Hypertensive heart disease without heart failure; E78.5 Hyperlipidemia, unspecified; R79.1 Abnormal coagulation profile; E11.9 Type 2 diabetes mellitus without complications; I73.9 Peripheral vascular disease, unspecified; Z86.73 Personal history of transient ischemic attack (TIA), and cerebral infarction without residual deficits; Z90.89 Acquired absence of other organs; Z87.891 Personal history of nicotine dependence
CPT/HCPCS: 36415; 70450; 80048; 82040; 85025; 85610; 85730; 96374; 96375; 99285; J1100; J1200; J2765

== ENCOUNTER 2018-01-31 11:41 | Emergency (ER) | payer MEDICAID ==
[~2018-01-31] VITALS: Ht 177.8 cm; Wt 84.0 kg
[2018-01-31 12:17] LABS: BASOPHILS # (AUTO) 0.05 x10^3/uL (0-0.1); BASOPHILS % (AUTO) 1 % (0-1); EOSINOPHILS # (AUTO) 0.04 x10^3/uL (0-0.4); EOSINOPHILS % (AUTO) 1 % (1-7); LYMPHOCYTES # (AUTO) 3.01 x10^3/uL (1-3.4); LYMPHOCYTES % (AUTO) 44 % (22-44); MD NO; MEAN CORPUSCULAR HEMOGLOBIN 33.5 pg (27.5-34.5); MEAN CORPUSCULAR HGB CONC 33.1 g/dL (33.2-36.2); MEAN CORPUSCULAR VOLUME 101.4 fL (81-97); MEAN PLATELET VOLUME 6.4 fL (7.4-10.4); MONOCYTES # (AUTO) 0.65 x10^3/uL (0.2-0.8); MONOCYTES % (AUTO) 9 % (2-9); NEUTROPHILS # (AUTO) 3.15 x10^3/uL (1.8-6.8); NEUTROPHILS % (AUTO) 46 % (42-75); PLATELET COUNT 344 x10^3/uL (130-400); RED CELL DISTRIBUTION WIDTH 18.2 % (9.4-14.8)
[2018-01-31 12:28] LABS: INTERNATIONAL NORMALIZED RATIO 2.11 (0.93-1.1); PROTHROMBIN TIME 21.4 Seconds (9.6-11.5)
[2018-01-31 12:30] LABS: ALBUMIN 3.4 g/dL (3.4-5.0); ANION GAP 7 mmol/L (5-15); CALCIUM 8.8 mg/dL (8.5-10.1); CHLORIDE 109 mmol/L (98-107)
[2018-01-31 12:36] LABS: ALANINE AMINOTRANSFERASE 49 U/L (12-78); ALKALINE PHOSPHATASE 77 U/L (45-117); BILIRUBIN,TOTAL 0.4 mg/dL (0.2-1.0); CREATININE 1.12 mg/dL (0.7-1.3); TOTAL PROTEIN 8.4 g/dL (6.4-8.2); TROPONIN I < 0.015 ng/mL (0.000-0.045)
[2018-01-31 13:22] VITALS: BP 140/92
[2018-01-31 14:12] LABS: TROPONIN I < 0.015 ng/mL (0.000-0.045)
== END 2018-01-31 14:48 | disposition home or self-care (01) ==
LOC: ED 13:42
DX: R07.89 Other chest pain (principal); I10 Essential (primary) hypertension; E11.9 Type 2 diabetes mellitus without complications; E78.5 Hyperlipidemia, unspecified; I73.9 Peripheral vascular disease, unspecified; Z87.891 Personal history of nicotine dependence; Z88.1 Allergy status to other antibiotic agents; Z88.8 Allergy status to other drugs, medicaments and biological substances
CPT/HCPCS: 36415; 71046; 80053; 84484; 85025; 85610; 85730; 93005; 99285

== ENCOUNTER 2018-02-12 15:03 | Emergency (ER) | payer MEDICAID ==
[~2018-02-12] VITALS: Ht 180.3 cm; Wt 84.1 kg
[2018-02-12] MEDS ORDERED: SODIUM CHLORIDE 0.9% 1,000 ML IV ONE (16:31)
[2018-02-12] MEDS ORDERED: PROCHLORPERAZINE 5 MG/ML, 2ML IVPush ONE (17:00)
[2018-02-12] MEDS ORDERED: SODIUM CHLORIDE FLUSH 10ML SYR IVF ONE (17:00)
[2018-02-12] MEDS ORDERED: SODIUM CHLORIDE 0.9% 1,000ML IVBOLUS ONE (17:00)
[2018-02-12] MEDS ORDERED: DIPHENHYDRAMINE 50 MG/ML, 1ML IVPush ONE (17:00)
[2018-02-12 17:04] LABS: BASOPHILS # (AUTO) 0.05 x10^3/uL (0-0.1); BASOPHILS % (AUTO) 1 % (0-1); EOSINOPHILS % (AUTO) 0 % (1-7); LYMPHOCYTES # (AUTO) 3.21 x10^3/uL (1-3.4); LYMPHOCYTES % (AUTO) 51 % (22-44); MD NO; MEAN CORPUSCULAR HEMOGLOBIN 33.4 pg (27.5-34.5); MEAN CORPUSCULAR HGB CONC 33.2 g/dL (33.2-36.2); MEAN CORPUSCULAR VOLUME 100.7 fL (81-97); MEAN PLATELET VOLUME 6.8 fL (7.4-10.4); MONOCYTES # (AUTO) 0.29 x10^3/uL (0.2-0.8); MONOCYTES % (AUTO) 5 % (2-9); NEUTROPHILS # (AUTO) 2.71 x10^3/uL (1.8-6.8); NEUTROPHILS % (AUTO) 43 % (42-75); PLATELET COUNT 167 x10^3/uL (130-400); RED BLOOD COUNT 3.43 x10^6/uL (4.38-5.82); RED CELL DISTRIBUTION WIDTH 18.9 % (9.4-14.8)
[2018-02-12 17:16] LABS: ALANINE AMINOTRANSFERASE 33 U/L (12-78); ALBUMIN 3.4 g/dL (3.4-5.0); ANION GAP 11 mmol/L (5-15); CALCIUM 8.5 mg/dL (8.5-10.1); CHLORIDE 110 mmol/L (98-107); CREATININE 1.15 mg/dL (0.7-1.3)
[2018-02-12 17:19] LABS: ALKALINE PHOSPHATASE 68 U/L (45-117); BILIRUBIN,TOTAL 0.5 mg/dL (0.2-1.0); TOTAL PROTEIN 8.1 g/dL (6.4-8.2)
[2018-02-12] MEDS ORDERED: PROCHLORPERAZINE 5 MG/ML, 2ML ONE (17:23)
[2018-02-12] MEDS ORDERED: DIPHENHYDRAMINE 50 MG/ML, 1ML ONE (17:23)
[2018-02-12 17:35] LABS: INTERNATIONAL NORMALIZED RATIO 2.28 (0.93-1.1); PROTHROMBIN TIME 23.1 Seconds (9.6-11.5)
[2018-02-12 18:10] VITALS: BP 157/100
[2018-02-12 18:31] LABS: MICROSCOPIC NOT IND
[2018-02-12 18:36] LABS: CULTURE INDICATED? NO
== END 2018-02-12 19:26 | disposition home or self-care (01) ==
LOC: ED 16:34
DX: G43.909 Migraine, unspecified, not intractable, without status migrainosus (principal); R10.9 Unspecified abdominal pain; R11.2 Nausea with vomiting, unspecified; R19.7 Diarrhea, unspecified; I10 Essential (primary) hypertension; E11.9 Type 2 diabetes mellitus without complications; J45.909 Unspecified asthma, uncomplicated; E78.5 Hyperlipidemia, unspecified; Z86.73 Personal history of transient ischemic attack (TIA), and cerebral infarction without residual deficits
CPT/HCPCS: 36415; 70450; 80053; 81003; 85025; 85610; 85730; 93005; 96361; 96374; 96375; 99285; J0780; J1200; J7030

== ENCOUNTER 2018-07-07 01:35 | Emergency (ER) | payer MEDICAID ==
[~2018-07-07] VITALS: Ht 177.8 cm; Wt 85.0 kg
[2018-07-07] MEDS ORDERED: HYDROmorphone 1 MG/ML, 1ML ONE (02:15)
--- NOTE | 2018-07-07 02:17 | NUR ---
XRAY AT BEDSIDE, PT MEDICATED PER EMAR. 5 RIGHTS ADDRESSED.
[2018-07-07] MEDS ORDERED: DIPHENHYDRAMINE 25 MG CAPSULE PO ONE (02:30)
[2018-07-07] MEDS ORDERED: HYDROmorphone 2 MG/ML, 1ML IM ONE (02:30)
[2018-07-07 02:41] LABS: MEAN CORPUSCULAR HEMOGLOBIN 35.2 pg (27.5-34.5); MEAN CORPUSCULAR VOLUME 106.6 fL (81-97); MEAN PLATELET VOLUME 6.3 fL (7.4-10.4); PLATELET COUNT 285 x10^3/uL (130-400); RED BLOOD COUNT 3.36 x10^6/uL (4.38-5.82); RED CELL DISTRIBUTION WIDTH 20.1 % (9.4-14.8)
[2018-07-07 02:54] LABS: ALANINE AMINOTRANSFERASE 27 U/L (12-78); ALBUMIN 3.7 g/dL (3.4-5.0); ANION GAP 7 mmol/L (5-15); CALCIUM 8.5 mg/dL (8.5-10.1); CHLORIDE 110 mmol/L (98-107); CREATININE 1.19 mg/dL (0.7-1.3); T4 (THYROXINE) 6.6 mcg/dL (4.5-12.1)
[2018-07-07 02:55] VITALS: BP 110/72
[2018-07-07 02:55] LABS: <PLATELET ESTIMATE> ADEQUATE; <PLT MORPHOLOGY> NORMAL PLT MORPH; ANISOCYTOSIS 1+; BASOPHILS # (AUTO) 0.07 x10^3/uL (0-0.1); BASOPHILS % (AUTO) 1 % (0-1); EOSINOPHILS # (AUTO) 0.01 x10^3/uL (0-0.4); EOSINOPHILS % (AUTO) 0 % (1-7); LYMPHOCYTES # (AUTO) 6.54 x10^3/uL (1-3.4); LYMPHOCYTES % (AUTO) 49 % (22-44); MD MORPH REVIEW ONLY; MONOCYTES # (AUTO) 1.08 x10^3/uL (0.2-0.8); MONOCYTES % (AUTO) 8 % (2-9); NEUTROPHILS # (AUTO) 5.69 x10^3/uL (1.8-6.8); NEUTROPHILS % (AUTO) 43 % (42-75); POLYCHROMASIA 1+
[2018-07-07 02:58] LABS: ALKALINE PHOSPHATASE 54 U/L (45-117); BILIRUBIN,TOTAL 0.4 mg/dL (0.2-1.0); TOTAL PROTEIN 7.8 g/dL (6.4-8.2); TROPONIN I < 0.015 ng/mL (0.000-0.045)
--- NOTE | 2018-07-07 03:02 | NUR ---
PT RESTING ON [employer] PLAYING ON PHONE. AWAITING LABS AT THIS TIME, WILL CONTINUE TO MONITOR.
--- NOTE | 2018-07-07 03:58 | NUR ---
Patient/Caregiver given discharge instructions and they have confirmed that they understand the instructions. Patient ambulatory with steady gait.
== END 2018-07-07 04:03 | disposition home or self-care (01) ==
LOC: ED 03:55
DX: J15.9 Unspecified bacterial pneumonia (principal); R07.89 Other chest pain; E11.9 Type 2 diabetes mellitus without complications; G43.909 Migraine, unspecified, not intractable, without status migrainosus; E78.5 Hyperlipidemia, unspecified; I11.9 Hypertensive heart disease without heart failure; I73.9 Peripheral vascular disease, unspecified
CPT/HCPCS: 36415; 70450; 71045; 80053; 80307; 84436; 84443; 84484; 85025; 93005; 96372; 99284; J1170

== ENCOUNTER 2018-07-10 10:38 | Emergency (ER) | payer MEDICAID ==
[~2018-07-10] VITALS: Ht 177.8 cm; Wt 84.6 kg
--- NOTE | 2018-07-10 11:11 | NUR ---
Pt to room from lobby.
--- NOTE | 2018-07-10 11:13 | NUR ---
PT TO ROOM FROM LOBBY
--- NOTE | 2018-07-10 11:31 | NUR ---
43 Y/O MALE PRESENTS TO ED WITH C/O CYST. PER PT "I HAVE A CYST ON MY RECTUM. I'VE HAD THEM BEFORE AND WAS HOSPITALIZED FOR A MONTH WITH ONE. I NOTICED THIS ONE LAST NIGHT. I JUST WANT TO GET CHECKED SO I'M NOT IN THE HOSPITAL AGAIN." NO ACUTE DISTRESS NOTED. NO C/O N/V/D, TRAUMA, SYNCOPE, CP, SOB. PT PLACED ON CONT PULSE OX,NIBP.
[2018-07-10] MEDS ORDERED: SODIUM CHLORIDE FLUSH 10ML SYR IVF ONE (12:30)
--- NOTE | 2018-07-10 12:45 | NUR ---
TWO UNSUCCESSFUL PIN ATTEMPTS. BEDSIDE REPORT TO YAYO MCLEAN.
--- NOTE | 2018-07-10 12:47 | NUR ---
BREAK RN FOR PRIMARY RN TRISTA. PT RESTING IN POSITION OF COMFORT. REQUESTING MEDICATION FOR 10/10 RECTAL PAIN. TO DISCUSS PAIN WITH ERP. PT NEEDS IV PLACED FOR CT, TO ATTEMPT IV. LAB AT BEDSIDE. CALL LIGHT IN REACH. DENIES NEED TO USE RESTROOM. VSS.
--- NOTE | 2018-07-10 13:04 | NUR ---
UNABLE TO OBTAIN IV ACCESS, 1 UNSUCCESSFUL ATTEMPT TO RIGHT FA BY KATHY RN AND LEFT HAND BY MINDY ZEE. DISCUSSED WITH CONRAD OSPINA AWARE.
[2018-07-10 13:12] LABS: MEAN CORPUSCULAR HEMOGLOBIN 35.8 pg (27.5-34.5); MEAN CORPUSCULAR HGB CONC 33.6 g/dL (33.2-36.2); MEAN CORPUSCULAR VOLUME 106.6 fL (81-97); MEAN PLATELET VOLUME 6.1 fL (7.4-10.4); PLATELET COUNT 284 x10^3/uL (130-400); RED BLOOD COUNT 3.32 x10^6/uL (4.38-5.82); RED CELL DISTRIBUTION WIDTH 20.5 % (9.4-14.8)
--- NOTE | 2018-07-10 13:16 | NUR ---
IV PLACED BY MINDY ZEE. CT CALLED AND NOTIFIED PT READY FOR CT. DISCUSSED PAIN MEDICATION REQUEST WITH DR. WOLFF AND CONRAD OSPINA, AWAITING ORDERS.
[2018-07-10 13:17] LABS: ALANINE AMINOTRANSFERASE 24 U/L (12-78); ALBUMIN 3.4 g/dL (3.4-5.0); ANION GAP 4 mmol/L (5-15); CALCIUM 8.4 mg/dL (8.5-10.1); CHLORIDE 112 mmol/L (98-107); CREATININE 1.05 mg/dL (0.7-1.3)
[2018-07-10 13:20] LABS: ALKALINE PHOSPHATASE 56 U/L (45-117); BILIRUBIN,TOTAL 0.6 mg/dL (0.2-1.0); TOTAL PROTEIN 7.8 g/dL (6.4-8.2)
[2018-07-10 13:27] LABS: BASOPHILS # (AUTO) 0.04 x10^3/uL (0-0.1); BASOPHILS % (AUTO) 1 % (0-1); EOSINOPHILS # (AUTO) 0.01 x10^3/uL (0-0.4); EOSINOPHILS % (AUTO) 0 % (1-7); LYMPHOCYTES # (AUTO) 3.44 x10^3/uL (1-3.4); LYMPHOCYTES % (AUTO) 38 % (22-44); MD NO; MONOCYTES # (AUTO) 0.37 x10^3/uL (0.2-0.8); MONOCYTES % (AUTO) 4 % (2-9); NEUTROPHILS # (AUTO) 5.14 x10^3/uL (1.8-6.8); NEUTROPHILS % (AUTO) 57 % (42-75)
--- NOTE | 2018-07-10 13:30 | NUR ---
PT REFUSING TO GO TO CT WITHOUT PAIN MEDICATION PRIOR TO CT, DISCUSSED WITH CONRAD OSPINA, AWAITING ORDERS.
[2018-07-10] MEDS ORDERED: ONDANSETRON 2MG/ML, 2ML ONE (13:45)
[2018-07-10] MEDS ORDERED: HYDROmorphone 1 MG/ML, 1ML ONE (13:46)
--- NOTE | 2018-07-10 13:50 | NUR ---
IN TO MEDICATE PT WITH DILAUDID AND ZOFRAN PER CONRAD OSPINA, PT REQUESTING "BENADRYL WITH MY DILAUDID BECAUSE SOMETIMES I ITCH AND IT FEELS GOOD TOGETHER." DISCUSSED WITH CONRAD OSPINA, PER CONRAD OSPINA NO BENADRYL TO BE ADMINISTERED, "PT MAY TAKE THE DILAUDID OR I CAN PRESCRIBE SOMETHING ELSE." PT DENIES ALLERGY TO DILAUDID AND MORPHINE, REFUSES MORPHINE "NO I WILL TAKE THE DILAUDID THE ITCHING ISN'T ALL THE TIME, CAN YOU GIVE IT FAST AND AN EXTRA FAST FLUSH TOO?" IV MEDICATIONS WILL BE GIVEN SLOW IV PUSH PER POLICY AND CONRAD OSPINA ORDERS, NO "FAST" FLUSHING OR ADMINISTRATION. VSS. CALL LIGHT IN REACH.
--- NOTE | 2018-07-10 13:53 | NUR ---
PT MEDICATED NOTED PER JJ PA AND PT REQUEST. VSS. CALL LIGHT IN REACH. FALL PRECAUTIONS IN PLACE. CT CALLED AND NOTIFIED PT READY FOR CT.DENIES NEED TO USE RESTROOM
[2018-07-10] MEDS ORDERED: ONDANSETRON 2MG/ML, 2ML IVPush ONE ×2 (14:00)
[2018-07-10] MEDS ORDERED: MORPHINE SULFATE 4 MG/ML, 1ML IVPush PRN ×2 (14:00→17:00)
[2018-07-10] MEDS ORDERED: HYDROmorphone 1 MG/ML, 1ML IV ONE (14:00)
--- NOTE | 2018-07-10 14:16 | NUR ---
BEDSIDE REPORT AND CARE TO ENRIQUE ZEE AT THIS TIME.
--- NOTE | 2018-07-10 14:30 | NUR ---
pt to ct
[2018-07-10] MEDS ORDERED: OMNIPAQUE 350 MG/ML, 100ML BOTTLE ONE (14:44)
--- NOTE | 2018-07-10 16:31 | NUR ---
pt continually requesting pain meds, aware, surgeon coming to see pt
[2018-07-10] MEDS ORDERED: LIDOCAINE 1%-EPI 1:100K, 30ML ONE (17:00)
[2018-07-10] MEDS ORDERED: MORPHINE SULFATE 4 MG/ML, 1ML ONE (17:07)
[2018-07-10 17:51] VITALS: BP 111/62
== END 2018-07-10 17:53 | disposition home or self-care (01) ==
LOC: ED 13:40
DX: L02.31 Cutaneous abscess of buttock (principal); E11.9 Type 2 diabetes mellitus without complications; G43.909 Migraine, unspecified, not intractable, without status migrainosus; I11.9 Hypertensive heart disease without heart failure; E78.5 Hyperlipidemia, unspecified; I73.9 Peripheral vascular disease, unspecified
CPT/HCPCS: 10060; 36415; 72193; 80053; 85025; 96374; 96375; 99284; J1170; J2405; Q9967; 99157

== ENCOUNTER 2018-08-08 10:45 | Emergency (ER) | payer MEDICAID ==
[~2018-08-08] VITALS: Ht 177.8 cm; Wt 81.1 kg
--- NOTE | 2018-08-08 11:14 | NUR ---
PT TO XR AND CT W TECH. C COLLAR IN PLACE.
--- NOTE | 2018-08-08 11:21 | NUR ---
REPORT FROM TAWANA ZEE. PT MOVED TO 17
[2018-08-08] MEDS ORDERED: ONDANSETRON 2MG/ML, 2ML ONE (11:46)
[2018-08-08] MEDS ORDERED: HYDROmorphone 1 MG/ML, 1ML VIAL ONE ×2 (11:46→14:16)
[2018-08-08] MEDS ORDERED: SODIUM CHLORIDE FLUSH 10ML SYR IVF ONE (12:00)
[2018-08-08] MEDS ORDERED: ONDANSETRON 2MG/ML, 2ML IVPush ONE (12:00)
[2018-08-08] MEDS: HYDROmorphone 2 MG/ML, 1ML IVPush PRN ×2 (12:59→14:18)
[2018-08-08 13:03] VITALS: BP 146/99
--- NOTE | 2018-08-08 13:44 | NUR ---
TASK RN: PT AT CT AT THIS TIME.
[2018-08-08] MEDS ORDERED: OMNIPAQUE 350 MG/ML, 100ML BOTTLE ONE (13:46)
--- NOTE | 2018-08-08 14:18 | NUR ---
TASK RN: PT REQUESTING BENADRYL WITH DILUDID. INFORMED THAT TOO HIGH RISK WITH REPEAT DOSES OF DILUDID. PT RESTING IN BED AT THSI TIME. IV DILUDID GIVEN.
--- NOTE | 2018-08-08 16:17 | NUR ---
TASK RN: DC EDUCATION PROVIDED, PT DEMONSTRATES UNDERSTANDING. PT AMBULATED STEADILY TO DC WITH RN USING CRUTCHES. PT STATES THAT HE WILL CALL SON FOR RIDE HOME
== END 2018-08-08 16:19 | disposition home or self-care (01) ==
LOC: ED 13:20
DX: G89.11 Acute pain due to trauma (principal); R07.89 Other chest pain; M25.531 Pain in right wrist; M79.641 Pain in right hand; M76.62 Achilles tendinitis, left leg; G43.909 Migraine, unspecified, not intractable, without status migrainosus; I10 Essential (primary) hypertension; E11.9 Type 2 diabetes mellitus without complications; Z88.6 Allergy status to analgesic agent; Z86.73 Personal history of transient ischemic attack (TIA), and cerebral infarction without residual deficits; W10.9XXA Fall (on) (from) unspecified stairs and steps, initial encounter; Y93.89 Activity, other specified; Y92.89 Other specified places as the place of occurrence of the external cause; Y99.8 Other external cause status
CPT/HCPCS: 70450; 71046; 72125; 73110; 73130; 73610; 74177; 96374; 96375; 96376; 99284; J1170; J2405; Q9967

== ENCOUNTER 2018-11-28 09:09 | Emergency (ER) | payer MEDICAID ==
[~2018-11-28] VITALS: Ht 177.8 cm; Wt 86.0 kg
[2018-11-28 12:16] VITALS: BP 145/108
== END 2018-11-28 13:16 | disposition home or self-care (01) ==
LOC: ED 10:28
DX: S76.112A Strain of left quadriceps muscle, fascia and tendon, initial encounter (principal); E11.9 Type 2 diabetes mellitus without complications; I10 Essential (primary) hypertension; I11.9 Hypertensive heart disease without heart failure; Z90.89 Acquired absence of other organs; W01.0XXA Fall on same level from slipping, tripping and stumbling without subsequent striking against object, initial encounter; Y93.89 Activity, other specified; Y92.830 Public park as the place of occurrence of the external cause; Y99.8 Other external cause status
CPT/HCPCS: 36415; 73564; 73721; 80048; 82040; 85025; 93005; 96374; 96375; 96376; 99284; J2270; J2405

== ENCOUNTER 2018-11-29 13:45 | Emergency (ER) | payer MEDICAID ==
[~2018-11-29] VITALS: Ht 177.8 cm; Wt 86.0 kg
[2018-11-29 15:46] VITALS: BP 115/70
== END 2018-11-29 16:04 | disposition home or self-care (01) ==
LOC: ED 15:45
DX: S39.012A Strain of muscle, fascia and tendon of lower back, initial encounter (principal); E11.9 Type 2 diabetes mellitus without complications; E78.5 Hyperlipidemia, unspecified; F17.200 Nicotine dependence, unspecified, uncomplicated; I11.9 Hypertensive heart disease without heart failure; Z86.73 Personal history of transient ischemic attack (TIA), and cerebral infarction without residual deficits; Z90.89 Acquired absence of other organs; W18.30XA Fall on same level, unspecified, initial encounter; Y93.89 Activity, other specified; Y92.89 Other specified places as the place of occurrence of the external cause; Y99.8 Other external cause status
CPT/HCPCS: 36415; 71275; 80053; 83880; 84484; 85025; 93005; 96374; 96375; 99284; J2270; J2405; Q9967

== ENCOUNTER 2018-11-30 08:49 | Observation (INO) | payer MEDICAID ==
[~2018-11-30] VITALS: Ht 177.8 cm; Wt 88.2 kg
[2018-12-01 13:34] VITALS: BP 143/98
== END 2018-12-01 16:02 | disposition home or self-care (01) ==
LOC: ED 12:52 → INTOOBSV 13:19 → EDIP 13:19 → 3NE 15:06 → DCLOUNGE 12-01 15:55
PROVIDERS: ADMIT Family Medicine; ATTEND Family Medicine
DX: R07.89 Other chest pain (principal); R09.02 Hypoxemia; E11.9 Type 2 diabetes mellitus without complications; I10 Essential (primary) hypertension; E78.5 Hyperlipidemia, unspecified; F12.90 Cannabis use, unspecified, uncomplicated; F17.200 Nicotine dependence, unspecified, uncomplicated; Z86.73 Personal history of transient ischemic attack (TIA), and cerebral infarction without residual deficits; Z79.899 Other long term (current) drug therapy; Z88.5 Allergy status to narcotic agent; Z88.6 Allergy status to analgesic agent; Z88.8 Allergy status to other drugs, medicaments and biological substances; Z91.018 Allergy to other foods; Z79.01 Long term (current) use of anticoagulants
CPT/HCPCS: 36415; 71046; 71111; 80048; 82040; 85025; 85610; 96374; 96376; 97162; 97165; 99284; G0378; J1885; J7512; Q0163

== ENCOUNTER 2018-12-02 08:04 | Emergency (ER) | payer MEDICAID ==
[~2018-12-02] VITALS: Ht 177.8 cm; Wt 85.9 kg
[2018-12-02 10:54] VITALS: BP 157/96
== END 2018-12-02 10:56 | disposition home or self-care (01) ==
LOC: ED 08:33
DX: S22.43XA Multiple fractures of ribs, bilateral, initial encounter for closed fracture (principal); J18.1 Lobar pneumonia, unspecified organism; E11.9 Type 2 diabetes mellitus without complications; I11.9 Hypertensive heart disease without heart failure; Z87.891 Personal history of nicotine dependence; X58.XXXA Exposure to other specified factors, initial encounter; Y93.89 Activity, other specified; Y92.89 Other specified places as the place of occurrence of the external cause; Y99.8 Other external cause status
CPT/HCPCS: 71250; 96374; 96375; 96376; 99284; J1200; J2270

== ENCOUNTER 2018-12-04 19:02 | Emergency (ER) | payer MEDICAID ==
[~2018-12-04] VITALS: Ht 177.8 cm; Wt 84.0 kg
[2018-12-04 21:50] VITALS: BP 139/104
== END 2018-12-04 21:53 | disposition home or self-care (01) ==
LOC: ED 21:47
DX: S00.93XA Contusion of unspecified part of head, initial encounter (principal); S20.211A Contusion of right front wall of thorax, initial encounter; S80.02XA Contusion of left knee, initial encounter; I10 Essential (primary) hypertension; E11.9 Type 2 diabetes mellitus without complications; Z72.9 Problem related to lifestyle, unspecified; E78.5 Hyperlipidemia, unspecified; R51 Headache; Z86.73 Personal history of transient ischemic attack (TIA), and cerebral infarction without residual deficits; Z87.891 Personal history of nicotine dependence; W18.30XA Fall on same level, unspecified, initial encounter; Y93.89 Activity, other specified; Y92.009 Unspecified place in unspecified non-institutional (private) residence as the place of occurrence of the external cause; Y99.8 Other external cause status
CPT/HCPCS: 36415; 70450; 71045; 73564; 80048; 82040; 82550; 85025; 93005; 96372; 99284; J1170; Q0162

== ENCOUNTER 2019-05-26 18:47 | Emergency (ER) | payer MEDICAID ==
[~2019-05-26] VITALS: Ht 177.8 cm; Wt 83.6 kg
--- NOTE | 2019-05-26 19:17 | NUR ---
PT WHEELED TO ROOM AT THIS TIME
[2019-05-26 19:29] VITALS: BP 112/72
--- NOTE | 2019-05-26 19:30 | NUR ---
THIS IS A 44Y M THAT COMES IN FOR NAUSEA VOMITING W/ DIFFUSE ABD PAIN AND MIGRAINE STARTING TODAY. PT HAS HX OF MIGRAINES, DOES NOT TAKE MEDICATION FOR THIS. PT CONNECTED TO MONITORING, VSS, NADN. CALL LIGHT IN REACH.
--- NOTE | 2019-05-26 19:35 | NUR ---
PT EDUCATED ON NEED FOR URINE, PT STS UNABLE TO PEE
--- NOTE | 2019-05-26 20:08 | NUR ---
MD TO BEDSIDE TO ASSESS PT
[2019-05-26] MEDS ORDERED: FAMOTIDINE 20 MG/2 ML ONE (20:21)
[2019-05-26] MEDS ORDERED: ONDANSETRON 2MG/ML, 2ML ONE (20:21)
[2019-05-26] MEDS ORDERED: SODIUM CHLORIDE 0.9% 1,000ML IVBOLUS ONE (20:30)
[2019-05-26] MEDS ORDERED: FAMOTIDINE 20 MG/2 ML IV ONE (20:30)
[2019-05-26] MEDS ORDERED: ONDANSETRON 2MG/ML, 2ML IVPush ONE (20:30)
[2019-05-26] MEDS ORDERED: SODIUM CHLORIDE FLUSH 10ML SYR IVF ONE (20:30)
[2019-05-26 21:13] LABS: MEAN CORPUSCULAR HEMOGLOBIN 37.2 pg (27.5-34.5); MEAN CORPUSCULAR HGB CONC 32.7 g/dL (33.2-36.2); MEAN CORPUSCULAR VOLUME 113.6 fL (81-97); MEAN PLATELET VOLUME 6.4 fL (7.4-10.4); PLATELET COUNT 279 x10^3/uL (130-400); RED BLOOD COUNT 3.37 x10^6/uL (4.38-5.82); RED CELL DISTRIBUTION WIDTH 17.2 % (9.4-14.8)
[2019-05-26 21:25] LABS: ALANINE AMINOTRANSFERASE 23 U/L (12-78); ALBUMIN 3.1 g/dL (3.4-5.0); ANION GAP 3 mmol/L (5-15); CALCIUM 8.7 mg/dL (8.5-10.1); CHLORIDE 109 mmol/L (98-107); CREATININE 1.08 mg/dL (0.7-1.3)
[2019-05-26 21:28] LABS: ALKALINE PHOSPHATASE 82 U/L (45-117); BILIRUBIN,TOTAL 0.5 mg/dL (0.2-1.0); TOTAL PROTEIN 8.1 g/dL (6.4-8.2)
[2019-05-26 21:32] LABS: BASOPHILS # (AUTO) 0.03 x10^3/uL (0-0.1); BASOPHILS % (AUTO) 0 % (0-1); EOSINOPHILS # (AUTO) 0.02 x10^3/uL (0-0.4); EOSINOPHILS % (AUTO) 0 % (1-7); LYMPHOCYTES # (AUTO) 3.01 x10^3/uL (1-3.4); LYMPHOCYTES % (AUTO) 31 % (22-44); MD SCAN; MONOCYTES # (AUTO) 0.15 x10^3/uL (0.2-0.8); MONOCYTES % (AUTO) 2 % (2-9); NEUTROPHILS # (AUTO) 6.63 x10^3/uL (1.8-6.8); NEUTROPHILS % (AUTO) 67 % (42-75)
[2019-05-26] MEDS ORDERED: OXYcodone/APAP 5/325MG TABLET PO ONE (22:00)
[2019-05-26] MEDS ORDERED: OXYcodone/APAP 5/325MG TABLET ONE (22:01)
--- NOTE | 2019-05-26 22:08 | NUR ---
Patient/Caregiver given discharge instructions and they have confirmed that they understand the instructions. Patient ambulatory with steady gait. iv dc prior to pt leaving facility
== END 2019-05-26 22:10 | disposition home or self-care (01) ==
LOC: ED 20:53
DX: R10.84 Generalized abdominal pain (principal); R11.2 Nausea with vomiting, unspecified; I11.9 Hypertensive heart disease without heart failure; E78.5 Hyperlipidemia, unspecified; G43.909 Migraine, unspecified, not intractable, without status migrainosus; Z90.49 Acquired absence of other specified parts of digestive tract; Z86.73 Personal history of transient ischemic attack (TIA), and cerebral infarction without residual deficits; Z87.891 Personal history of nicotine dependence
CPT/HCPCS: 36415; 80053; 83605; 83690; 85025; 96361; 96374; 96375; 99283; J2405; J3490; J7030

== ENCOUNTER 2019-06-06 21:02 | Emergency (ER) | payer MEDICAID ==
[~2019-06-06] VITALS: Ht 177.8 cm; Wt 88.1 kg
[~2019-06-06 21:02] MED LIST changes: +SIMV20TA19 PO; -SIMV20TA3 PO
--- NOTE | 2019-06-06 21:39 | NUR ---
THIS IS A 44 YO MALE COMING IN FOR "I FELL DOWN THE STAIRS AT MY HOUSE AND NOW MY ARM AND LEG HURT". PT REPORTS TRIPPING, C/O LEFT ARM PAIN, LEFT LEG PAIN. AMBULATORY INTO TRIAGE. DENIES ANY LOC. HEMATOMA TO LEFT SIDE OF HEAD. DENIES ANY VISUAL CHANGES OR PALACIOS. 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 LAST INR 2.5 A WEEK AGO. PATIENT HAS BRUISING ON LEFT KNEE, LEFT FOREARM, AND LEFT SHOULDER PAIN, UNABLE TO RAISE LEFT ARM, ABLE TO BEND AND MOVE FROM ELBOW DOWN. CSM INTACT BILATERALLY. BRUISE AND BUMP LOCATED ON LEFT SIDE OF HEAD, DENIES LOC. A&OX4, VSS, NAD AT THIS TIME, SPO2 AND BP MONITORING IN PLACE.
--- NOTE | 2019-06-06 21:59 | NUR ---
PATIENT TO CT
[2019-06-06] MEDS ORDERED: ACETAMINOPHEN 500 MG TABLET ONE (22:33)
[2019-06-06 22:49] VITALS: BP 125/90
--- NOTE | 2019-06-06 22:50 | NUR ---
PATIENT BACK TO CT FOR CHEST CT EXAM
--- NOTE | 2019-06-06 22:50 | NUR ---
VERBAL ORDERS FOR TYLENOL FOR PAIN BY MD CHETAN. PATIENT REFUSED.
[2019-06-06 22:55] LABS: INTERNATIONAL NORMALIZED RATIO 2.58 (0.93-1.1); PROTHROMBIN TIME 27.6 Seconds (9.6-11.5)
--- NOTE | 2019-06-06 23:14 | NUR ---
Patient/Caregiver given discharge instructions and they have confirmed that they understand the instructions. Patient ambulatory with steady gait, refused wheelchair. States he called his brother to get a ride home.
== END 2019-06-06 23:17 | disposition home or self-care (01) ==
LOC: ED 22:20
DX: S00.03XA Contusion of scalp, initial encounter (principal); S00.93XA Contusion of unspecified part of head, initial encounter; S20.212A Contusion of left front wall of thorax, initial encounter; S40.012A Contusion of left shoulder, initial encounter; I10 Essential (primary) hypertension; E11.9 Type 2 diabetes mellitus without complications; E78.5 Hyperlipidemia, unspecified; Z90.89 Acquired absence of other organs; Z86.73 Personal history of transient ischemic attack (TIA), and cerebral infarction without residual deficits; W01.0XXA Fall on same level from slipping, tripping and stumbling without subsequent striking against object, initial encounter; Y93.89 Activity, other specified; Y92.098 Other place in other non-institutional residence as the place of occurrence of the external cause; Y99.8 Other external cause status
CPT/HCPCS: 36415; 70450; 71045; 71250; 85610; 99285

== ENCOUNTER 2019-06-14 18:43 | Emergency (ER) | payer MEDICAID ==
[~2019-06-14] VITALS: Ht 177.8 cm; Wt 113.0 kg
[2019-06-14 19:44] LABS: ANION GAP 6 mmol/L (5-15); CALCIUM 8.4 mg/dL (8.5-10.1); CHLORIDE 112 mmol/L (98-107); CREATININE 1.36 mg/dL (0.7-1.3)
[2019-06-14 19:51] LABS: MEAN CORPUSCULAR HEMOGLOBIN 37.1 pg (27.5-34.5); MEAN CORPUSCULAR HGB CONC 32.6 g/dL (33.2-36.2); MEAN CORPUSCULAR VOLUME 113.8 fL (81-97); MEAN PLATELET VOLUME 6.5 fL (7.4-10.4); PLATELET COUNT 292 x10^3/uL (130-400); RED CELL DISTRIBUTION WIDTH 16.7 % (9.4-14.8)
--- NOTE | 2019-06-14 19:51 | NUR ---
ELECTRICIAN BUS: PT WALKED BACK FROM LOBBY TO ROOM AT THIS TIME.
--- NOTE | 2019-06-14 19:55 | NUR ---
c/o PALACIOS x3 days and cough today. Placed vitals signs monitors on pt, side rails up and locked, vss.
[2019-06-14] MEDS ORDERED: CYCL-259 PO (20:00)
[2019-06-14 20:09] LABS: MD YES
[2019-06-14 20:14] LABS: ANISOCYTOSIS 1+
[2019-06-14 20:16] LABS: SMUDGE CELLS 1+
[2019-06-14 20:21] LABS: EOS#(MANUAL) 0.21 x10^3/uL (0.0-0.4); EOS% (MANUAL) 1 % (1-7); LYMPH#(MANUAL) 16.09 x10^3/uL (1-3.4); LYMPHS% (MANUAL) 77 % (22-44); MONOS#(MANUAL) 1.05 x10^3/uL (0.3-2.7); MONOS% (MANUAL) 5 % (2-9); SEG#(MANUAL) 3.55 x10^3/uL (1.8-6.8); SEGS% (MANUAL) 17 % (42-75)
[2019-06-14 20:24] LABS: <PLATELET ESTIMATE> ADEQUATE; <PLT MORPHOLOGY> NORMAL PLT MORPH
--- NOTE | 2019-06-14 20:26 | NUR ---
URINE SAMPLE TAKEN TO LAB. PROVIDED PT WITH WARM BLANKETS, DENIES FURTHER NEEDS, CALL LIGHT WITHIN REACH. AWAITING LAB RESULTS
[2019-06-14 20:54] LABS: AMPHETAMINE SCREEN, URINE Negative (Negative); BARBITURATE SCREEN, URINE Negative (Negative); BENZODIAZEPINE SCREEN, URINE Negative (Negative); CANNABINOID SCREEN, URINE Positive (Negative); COCAINE SCREEN, URINE Negative (Negative); METHADONE SCREEN, URINE Negative (Negative); OPIATE SCREEN, URINE Negative (Negative)
[2019-06-14] MEDS ORDERED: MORPHINE SULFATE 4 MG/ML, 1ML ONE ×2 (21:27→21:57)
[2019-06-14] MEDS ORDERED: ONDANSETRON 2MG/ML, 2ML ONE (21:28)
[2019-06-14] MEDS ORDERED: methylPREDNISolone SOD SUCC 125 MG/2 ML ONE (21:28)
[2019-06-14] MEDS ORDERED: SODIUM CHLORIDE FLUSH 10ML SYR IVF ONE (21:30)
[2019-06-14] MEDS ORDERED: ONDANSETRON 2MG/ML, 2ML IVPush ONE (21:30)
[2019-06-14] MEDS ORDERED: methylPREDNISolone SOD SUCC 125 MG/2 ML IV ONE (21:30)
--- NOTE | 2019-06-14 21:32 | NUR ---
IV placed. Pt desating to 88% RA, placed 2L NC.
[2019-06-14] MEDS: MORPHINE SULFATE 4 MG/ML, 1ML IVPush PRN ×2 (21:35→22:01)
[2019-06-14 21:43] VITALS: BP 115/76
[2019-06-14] MEDS ORDERED: DIPHENHYDRAMINE 50 MG CAPSULE PO ONE (21:59)
[2019-06-14] MEDS ORDERED: DIPHENHYDRAMINE 25 MG CAPSULE ONE (22:01)
--- NOTE | 2019-06-14 22:07 | NUR ---
C/o pain, medicated per JUN. Pt resting in gurney, side rails locked, call light within reach.
== END 2019-06-14 23:04 | disposition home or self-care (01) ==
LOC: ED 22:57
DX: G43.909 Migraine, unspecified, not intractable, without status migrainosus (principal); M79.662 Pain in left lower leg; M79.602 Pain in left arm; R11.0 Nausea; R94.31 Abnormal electrocardiogram [ECG] [EKG]; E11.9 Type 2 diabetes mellitus without complications; E78.5 Hyperlipidemia, unspecified; I11.9 Hypertensive heart disease without heart failure; Z86.73 Personal history of transient ischemic attack (TIA), and cerebral infarction without residual deficits
CPT/HCPCS: 36415; 80048; 80307; 85025; 93005; 96374; 96375; 99284; J2270; J2405; J2930

== ENCOUNTER 2019-10-11 06:46 | Emergency (ER) | payer MEDICAID ==
[~2019-10-11] VITALS: Ht 175.3 cm; Wt 79.7 kg
[2019-10-11] MEDS ORDERED: L.E.T SOLUTION TP ONE ×2 (07:24→07:30)
--- NOTE | 2019-10-11 07:33 | NUR ---
PT WC'D TO ROOM T4 AFTER PT WAS FOUND TO BE DIAPHORETIC W/ BP 70'S/30'S. PT BROUGHT TO ROOM. PT STATES HE HAD R JEONG LAC YESTERDAY AROUND 1500. STATES HE IS UTD ON [place] SHOT REECEIVED IT LAST YEAR. PT DENIES HX DM. PT ALSO C/O FEELING MILDLY DIZZY WHILE IN ROOM. NEURO INTACT. HX BRUSCHETT'S SYNDROME. ERP DR. LAWRENCE ASSESSED PT AT BEDSIDE. NEW ORDERS PLACED AND INITIATED. PT RESTING ON GURNEY. NADN. MONITORS IN PLACE. VSS. WARM BLANKETS PROVIDED. CALL LIGHT IN REACH. BED RAILS X 2 UP.
--- NOTE | 2019-10-11 07:39 | NUR ---
PT REQUESTING PAIN MEDICATION. ERP DR. LAWRENCE NOTIFIED. PER ERP HOLD OFF ON PO PAIN MEDS UNTIL RADIOLOG REPORT COMPLETE. Isaiah. ON.
--- NOTE | 2019-10-11 07:53 | NUR ---
PT AND ALL PERSONAL BELONGINGS MOVED TO ROOM 16. REPORT GIVEN TO YAYO TAY.
[2019-10-11 07:54] LABS: MEAN CORPUSCULAR HEMOGLOBIN 36.9 pg (27.5-34.5); MEAN PLATELET VOLUME 6.4 fL (7.4-10.4); PLATELET COUNT 245 x10^3/uL (130-400); RED BLOOD COUNT 3.28 x10^6/uL (4.38-5.82); RED CELL DISTRIBUTION WIDTH 16.9 % (9.4-14.8)
[2019-10-11 07:55] LABS: MD YES
[2019-10-11 08:06] LABS: ALBUMIN 3.1 g/dL (3.4-5.0); ANION GAP 5 mmol/L (5-15); CALCIUM 7.9 mg/dL (8.5-10.1); CHLORIDE 113 mmol/L (98-107); CREATININE 1.16 mg/dL (0.7-1.3)
[2019-10-11 08:07] LABS: INTERNATIONAL NORMALIZED RATIO 4.98 (0.93-1.1)
[2019-10-11] MEDS ORDERED: NEOSPORIN OINT. PKT 1 PACKET ONE ×2 (08:08→09:21)
[2019-10-11 08:10] LABS: ANISOCYTOSIS 1+; LYMPH#(MANUAL) 11.25 x10^3/uL (1-3.4); LYMPHS% (MANUAL) 69 % (22-44); SEG#(MANUAL) 5.05 x10^3/uL (1.8-6.8); SEGS% (MANUAL) 31 % (42-75)
[2019-10-11 08:11] LABS: <PLATELET ESTIMATE> ADEQUATE; <PLT MORPHOLOGY> NORMAL PLT MORPH; SMUDGE CELLS 1+
[2019-10-11 08:15] LABS: PROTHROMBIN TIME 53.7 Seconds (9.6-11.5)
[2019-10-11] MEDS ORDERED: LIDOCAINE-MPF 1%, 5ML INFIL ONE (08:30)
[2019-10-11] MEDS ORDERED: LIDOCAINE-MPF 1%, 5ML ONE (08:45)
[2019-10-11] MEDS ORDERED: HYDROcodone/APAP 5/325 TABLET ONE (08:46)
--- NOTE | 2019-10-11 08:50 | NUR ---
PT MEDICATED FOR PAIN PER MAR. PER PT APAP CAUSES ITCHING, NOT A TRUE ALLERGY, PT OK TO TAKE NORCO. AWARE.
[2019-10-11] MEDS ORDERED: HYDROcodone/APAP 5/325 TABLET PO ONE (09:00)
--- NOTE | 2019-10-11 09:14 | NUR ---
BREAK RN: PT RESTING ON ROWDY. NADN. VEGA.
[2019-10-11 10:06] VITALS: BP 105/72
== END 2019-10-11 10:31 | disposition home or self-care (01) ==
LOC: ED 07:56
DX: S81.811A Laceration without foreign body, right lower leg, initial encounter (principal); D68.69 Other thrombophilia; G43.909 Migraine, unspecified, not intractable, without status migrainosus; E11.9 Type 2 diabetes mellitus without complications; E78.5 Hyperlipidemia, unspecified; I10 Essential (primary) hypertension; R94.31 Abnormal electrocardiogram [ECG] [EKG]; Z86.73 Personal history of transient ischemic attack (TIA), and cerebral infarction without residual deficits; Z90.89 Acquired absence of other organs; X58.XXXA Exposure to other specified factors, initial encounter; Y93.89 Activity, other specified; Y92.89 Other specified places as the place of occurrence of the external cause; Y99.9 Unspecified external cause status
CPT/HCPCS: 36415; 80048; 82040; 82962; 85025; 85610; 93005; 99285

== ENCOUNTER 2019-10-14 17:06 | Emergency (ER) | payer MEDICAID ==
[~2019-10-14] VITALS: Ht 177.8 cm; Wt 76.7 kg
[2019-10-14] MEDS ORDERED: CEFTRIAXONE PMX 1GM/50ML 50 ML IVPB ONE (18:00)
[2019-10-14] MEDS ORDERED: SODIUM CHLORIDE FLUSH 10ML SYR IVF ONE (18:00)
[2019-10-14] MEDS ORDERED: PROMETHAZINE 25 MG/ML, 1ML IM ONE (18:00)
[2019-10-14] MEDS ORDERED: CEFTRIAXONE PMX 1GM/50ML 50 ML ONE (18:04)
[2019-10-14] MEDS ORDERED: PROMETHAZINE 25 MG/ML, 1ML ONE (18:04)
[2019-10-14 18:17] LABS: MEAN CORPUSCULAR HEMOGLOBIN 36.4 pg (27.5-34.5); MEAN CORPUSCULAR HGB CONC 33.4 g/dL (33.2-36.2); MEAN CORPUSCULAR VOLUME 108.9 fL (81-97); MEAN PLATELET VOLUME 6.5 fL (7.4-10.4); PLATELET COUNT 246 x10^3/uL (130-400); RED CELL DISTRIBUTION WIDTH 15.8 % (9.4-14.8)
[2019-10-14 18:27] LABS: ALBUMIN 2.7 g/dL (3.4-5.0); ANION GAP 5 mmol/L (5-15); CALCIUM 8.3 mg/dL (8.5-10.1); CHLORIDE 105 mmol/L (98-107); CREATININE 1.39 mg/dL (0.7-1.3)
[2019-10-14 18:40] VITALS: BP 106/65
[2019-10-14 18:57] LABS: MD YES
[2019-10-14 18:59] LABS: BAND#(MANUAL) 0.68 x10^3/uL; BANDS%(MANUAL) 5 % (0-7); BASOS#(MANUAL) 0.14 x10^3/uL (0-0.1); BASOS% (MANUAL) 1 % (0-1); LYMPHS% (MANUAL) 17 % (22-44); MONOS#(MANUAL) 0.41 x10^3/uL (0.3-2.7); MONOS% (MANUAL) 3 % (2-9); SEG#(MANUAL) 9.99 x10^3/uL (1.8-6.8); SEGS% (MANUAL) 74 % (42-75)
[2019-10-14 19:00] LABS: ANISOCYTOSIS 1+
[2019-10-14 19:01] LABS: SPHEROCYTES 1+; TOXIC GRAN 1+
[2019-10-14 19:02] LABS: <PLATELET ESTIMATE> ADEQUATE; <PLT MORPHOLOGY> NORMAL PLT MORPH
== END 2019-10-14 19:33 | disposition home or self-care (01) ==
LOC: ED 17:42
DX: L03.116 Cellulitis of left lower limb (principal); I10 Essential (primary) hypertension; E11.9 Type 2 diabetes mellitus without complications; E78.5 Hyperlipidemia, unspecified; G43.909 Migraine, unspecified, not intractable, without status migrainosus; F17.200 Nicotine dependence, unspecified, uncomplicated; Z86.73 Personal history of transient ischemic attack (TIA), and cerebral infarction without residual deficits; Z86.79 Personal history of other diseases of the circulatory system; Z90.49 Acquired absence of other specified parts of digestive tract
CPT/HCPCS: 36415; 80048; 82040; 85025; 93005; 96365; 96372; 99284; J0696; J2550

== ENCOUNTER 2019-11-03 12:13 | Inpatient (IN) | payer MEDICAID ==
[~2019-11-03] VITALS: Ht 179.1 cm; Wt 72.7 kg
[2019-11-03 14:52] LABS: HCT (SEDRATE) 33.9 % (39.2-51.8); MEAN CORPUSCULAR HEMOGLOBIN 35.7 pg (27.5-34.5); MEAN CORPUSCULAR HGB CONC 32.1 g/dL (33.2-36.2); MEAN CORPUSCULAR VOLUME 111.4 fL (81-97); MEAN PLATELET VOLUME 6.5 fL (7.4-10.4); PLATELET COUNT 229 x10^3/uL (130-400); RED CELL DISTRIBUTION WIDTH 17.1 % (9.4-14.8)
[2019-11-03 15:03] LABS: ALANINE AMINOTRANSFERASE 22 U/L (12-78); ALBUMIN 2.9 g/dL (3.4-5.0); ANION GAP 5 mmol/L (5-15); CALCIUM 8.8 mg/dL (8.5-10.1); CHLORIDE 105 mmol/L (98-107); CREATININE 1.38 mg/dL (0.7-1.3)
[2019-11-03 15:10] LABS: ALKALINE PHOSPHATASE 65 U/L (45-117); BILIRUBIN,TOTAL 0.9 mg/dL (0.2-1.0); TOTAL PROTEIN 8.1 g/dL (6.4-8.2)
--- NOTE | 2019-11-03 15:24 | NUR ---
pt to ed from home w c/o wound on R pastor. vascular d/o: bechet's disease. was on abx for wound. wound is open to air and does not appear well cared for. wound bed yellow, slough. vss. given blankets/call garcia. ctm. plan labs, xr. as
[2019-11-03 15:30] LABS: C-REACTIVE PROTEIN, QUANT > 19.00 mg/dL (0.02-0.49)
--- NOTE | 2019-11-03 15:51 | NUR ---
asking for pain meds will notify md given blankets. as
[2019-11-03 15:52] LABS: BASOPHILS # (AUTO) 0.01 x10^3/uL (0-0.1); BASOPHILS % (AUTO) 0 % (0-1); EOSINOPHILS # (AUTO) 0.01 x10^3/uL (0-0.4); EOSINOPHILS % (AUTO) 0 % (1-7); LYMPHOCYTES # (AUTO) 5.16 x10^3/uL (1-3.4); LYMPHOCYTES % (AUTO) 32 % (22-44); MD SCAN; MONOCYTES # (AUTO) 0.95 x10^3/uL (0.2-0.8); MONOCYTES % (AUTO) 6 % (2-9); NEUTROPHILS # (AUTO) 9.99 x10^3/uL (1.8-6.8); NEUTROPHILS % (AUTO) 62 % (42-75)
[2019-11-03] MEDS ORDERED: SODIUM CHLORIDE FLUSH 10ML SYR IVF ONE (16:00)
[2019-11-03] MEDS ORDERED: PIPERACILLIN/TAZO/PMX 3.375GM 50 ML IV ONE (16:00)
[2019-11-03] MEDS ORDERED: VANCOMYCIN PER PHARMACY MC ONE (16:00)
[2019-11-03] MEDS ORDERED: SODIUM CHLORIDE 0.9% 1,000ML IVBOLUS ONE (16:00)
[2019-11-03] MEDS ORDERED: ONDANSETRON ODT 8 MG PO ONE (16:00)
[2019-11-03] MEDS ORDERED: HYDROcodone/APAP 10/325 MG TABLET PO ONE (16:00)
[2019-11-03] MEDS ORDERED: PIPERACILLIN/TAZO/PMX 3.375GM 50 ML ONE (16:10)
[2019-11-03] MEDS ORDERED: ONDANSETRON ODT 8 MG ONE (16:10)
[2019-11-03] MEDS ORDERED: HYDROcodone/APAP 10/325 MG TABLET ONE (16:11)
[2019-11-03] MEDS ORDERED: PHARMACOKINETIC CONSULTATION MC ONE ×2 (16:30→19:00)
--- NOTE | 2019-11-03 16:43 | NUR ---
tbadm piv est zosyn started bc x2 were drawn by lab. asking for iv pain meds but sts no. as
[2019-11-03] MEDS ORDERED: VANCOMYCIN 2,000 MG in SODIUM CHLORIDE 0.9% 500 ML IV ONE (17:00)
[2019-11-03] MEDS ORDERED: ONDANSETRON 2MG/ML, 2ML IVPush PRN (17:30)
[2019-11-03] MEDS ORDERED: ACETAMINOPHEN 325 MG TABLET PO PRN (17:30)
[2019-11-03] MEDS ORDERED: POLYETHYLENE GLYCOL 17 GM PACKET PO PRN (17:30)
[2019-11-03] MEDS ORDERED: GABAPENTIN 300 MG CAPSULE PO PRN (17:30)
[2019-11-03] MEDS ORDERED: morphine SULFATE 10 MG/ML, 1ML IVPush PRN (17:30)
[2019-11-03] MEDS ORDERED: MELATONIN 5 MG TABLET PO PRN (17:30)
[2019-11-03] MEDS ORDERED: ONDANSETRON ODT 4 MG PO PRN (17:30)
[2019-11-03] MEDS ORDERED: hydrALAzine 20 MG/ML, 1ML IVPush PRN (17:30)
[2019-11-03] MEDS ORDERED: BISACODYL 10 MG SUPP PR PRN (17:30)
--- NOTE | 2019-11-03 17:31 | NUR ---
report to maya guy. as
--- NOTE | 2019-11-03 17:42 | NUR ---
SHONDA HOSKINS, PT TRANSFERRED W ALL BELONGINGS.
[2019-11-03 17:50] VITALS: BP 111/77
[2019-11-03] MEDS ORDERED: VANCOMYCIN PER PHARMACY MC PRN (18:00)
[2019-11-03] MEDS ORDERED: PHARMACY MAY ADJ FOR RENAL FX MC PRN (18:00)
[2019-11-03 18:08] LABS: INTERNATIONAL NORMALIZED RATIO 1.1 (0.93-1.1); PROTHROMBIN TIME 11.7 Seconds (9.6-11.5)
[2019-11-03] MEDS: LACTATED RINGERS 1,000 ML IV SCH (18:28)
[2019-11-03] MEDS ORDERED: POTASSIUM CHLORIDE 20 MEQ TAB.ER.PRT PO ONE (18:30)
[2019-11-03 18:53] VITALS: BP 112/71
[2019-11-03] MEDS ORDERED: PHARMACOKINETIC MONITORING MC PRN (19:00)
[2019-11-03] MEDS ORDERED: WARFARIN 3 MG TABLET PO-COUM ONE (20:21)
[2019-11-03 21:33] LABS: MICROSCOPIC AUTO
[2019-11-03] MEDS: morphine SULFATE 10 MG/ML, 1ML IVPush PRN (23:02)
[2019-11-03] MEDS: PIPERACILLIN/TAZO/PMX 3.375GM 50 ML IV SCH (23:03)
[2019-11-04 01:47] VITALS: BP 114/69
[2019-11-04] MEDS: morphine SULFATE 10 MG/ML, 1ML IVPush PRN ×6 (02:24→21:23)
[2019-11-04] MEDS ORDERED: DIPHENHYDRAMINE 25 MG CAPSULE PO ONE ×2 (03:30→19:00)
[2019-11-04] MEDS ORDERED: ACETAMINOPHEN 325 MG TABLET PO ONE ×2 (03:30→19:00)
[2019-11-04 05:14] VITALS: BP 94/58
[2019-11-04 05:15] LABS: INTERNATIONAL NORMALIZED RATIO 1.27 (0.93-1.1); PROTHROMBIN TIME 13.5 Seconds (9.6-11.5)
[2019-11-04 05:21] LABS: ANION GAP 5 mmol/L (5-15); CHLORIDE 103 mmol/L (98-107); MEAN CORPUSCULAR HEMOGLOBIN 35.2 pg (27.5-34.5); MEAN CORPUSCULAR HGB CONC 32.2 g/dL (33.2-36.2); MEAN CORPUSCULAR VOLUME 109.3 fL (81-97); PLATELET COUNT 179 x10^3/uL (130-400); RED BLOOD COUNT 2.61 x10^6/uL (4.38-5.82); RED CELL DISTRIBUTION WIDTH 17.5 % (9.4-14.8)
[2019-11-04 05:33] LABS: CREATININE 1.27 mg/dL (0.7-1.3)
[2019-11-04] MEDS: PIPERACILLIN/TAZO/PMX 3.375GM 50 ML IV SCH ×3 (05:51→17:58)
[2019-11-04 05:56] LABS: BASOPHILS # (AUTO) 0.01 x10^3/uL (0-0.1); BASOPHILS % (AUTO) 0 % (0-1); EOSINOPHILS # (AUTO) 0.02 x10^3/uL (0-0.4); EOSINOPHILS % (AUTO) 0 % (1-7); LYMPHOCYTES # (AUTO) 7.05 x10^3/uL (1-3.4); LYMPHOCYTES % (AUTO) 50 % (22-44); MD SCAN; MONOCYTES # (AUTO) 1.14 x10^3/uL (0.2-0.8); MONOCYTES % (AUTO) 8 % (2-9); NEUTROPHILS # (AUTO) 5.85 x10^3/uL (1.8-6.8); NEUTROPHILS % (AUTO) 42 % (42-75)
[2019-11-04 06:53] VITALS: BP 101/66
[2019-11-04] MEDS: VANCOMYCIN 1,400 MG in SODIUM CHLORIDE 0.9% 250 ML IV SCH (08:59)
[2019-11-04] MEDS: SENNA/DOCUSATE TABLET PO SCH (09:00)
[2019-11-04] MEDS ORDERED: MAGNESIUM SULFATE PMX 2GM/50ML 50 ML IV ONE ×2 (09:30→14:00)
[2019-11-04] MEDS ORDERED: GADOTERATE 7.5 MMOL/15 ML SYR ONE (11:46)
[2019-11-04] MEDS ORDERED: VANCOMYCIN 1,400 MG in SODIUM CHLORIDE 0.9% 250 ML IV SCH (12:00)
[2019-11-04] MEDS: ENOXAPARIN 40 MG/0.4 ML SQ SCH (12:50)
[2019-11-04 13:12] VITALS: BP 122/79
[2019-11-04 13:20] VITALS: BP 92/60
[2019-11-04] MEDS ORDERED: SODIUM PHOSPHATE 30 MMOL in SODIUM CHLORIDE 0.9% 500 ML IV ONE (14:00)
[2019-11-04] MEDS ORDERED: WARFARIN 10 MG TABLET PO-COUM ONE (18:00)
[2019-11-04 18:34] VITALS: BP 96/63
[2019-11-05 00:11] VITALS: BP 105/67
[2019-11-05] MEDS: morphine SULFATE 10 MG/ML, 1ML IVPush PRN ×6 (00:49→21:03)
[2019-11-05] MEDS: PIPERACILLIN/TAZO/PMX 3.375GM 50 ML IV SCH ×4 (00:56→18:31)
[2019-11-05] MEDS: VANCOMYCIN 1,400 MG in SODIUM CHLORIDE 0.9% 250 ML IV SCH ×2 (03:08→21:03)
[2019-11-05 05:50] LABS: INTERNATIONAL NORMALIZED RATIO 1.98 (0.93-1.1); PROTHROMBIN TIME 21.1 Seconds (9.6-11.5)
[2019-11-05 05:56] LABS: CHLORIDE 103 mmol/L (98-107)
[2019-11-05 06:08] LABS: ANION GAP 7 mmol/L (5-15); CALCIUM 7.8 mg/dL (8.5-10.1); CREATININE 1.12 mg/dL (0.7-1.3)
[2019-11-05 06:16] LABS: MEAN CORPUSCULAR HEMOGLOBIN 35.6 pg (27.5-34.5); MEAN CORPUSCULAR HGB CONC 32.5 g/dL (33.2-36.2); MEAN CORPUSCULAR VOLUME 109.5 fL (81-97); MEAN PLATELET VOLUME 7.2 fL (7.4-10.4); PLATELET COUNT 165 x10^3/uL (130-400); RED CELL DISTRIBUTION WIDTH 17.5 % (9.4-14.8)
[2019-11-05 06:35] LABS: MD YES
[2019-11-05] MEDS: LACTATED RINGERS 1,000 ML IV SCH (06:38)
[2019-11-05 06:40] LABS: LYMPH#(MANUAL) 8.64 x10^3/uL (1-3.4); LYMPHS% (MANUAL) 58 % (22-44); MONOS#(MANUAL) 1.19 x10^3/uL (0.3-2.7); MONOS% (MANUAL) 8 % (2-9); SEG#(MANUAL) 5.07 x10^3/uL (1.8-6.8); SEGS% (MANUAL) 34 % (42-75)
[2019-11-05 06:41] LABS: ANISOCYTOSIS 1+; SMUDGE CELLS 1+
[2019-11-05 06:42] LABS: <PLATELET ESTIMATE> ADEQUATE; <PLT MORPHOLOGY> NORMAL PLT MORPH
[2019-11-05 07:16] VITALS: BP 102/69
[2019-11-05] MEDS: SENNA/DOCUSATE TABLET PO SCH (07:30)
[2019-11-05] MEDS ORDERED: POTASSIUM PHOSPHATE 44 MEQ in SODIUM CHLORIDE 0.9% 500 ML IV ONE (08:00)
[2019-11-05] MEDS: ZINC SULFATE 220 MG CAPSULE PO SCH (08:03)
[2019-11-05] MEDS: CHOLECALCIFEROL 5,000u TAB PO SCH (08:03)
[2019-11-05] MEDS: ACETAMINOPHEN 500 MG TABLET PO PRN ×2 (08:03→18:55)
[2019-11-05] MEDS: MULTIVITS,STRESS FORMULA 1 TABLET PO SCH (08:03)
[2019-11-05] MEDS: ASCORBIC ACID 500 MG TABLET PO SCH ×2 (08:04→17:43)
[2019-11-05 12:03] VITALS: BP 105/68
[2019-11-05] MEDS: ENOXAPARIN 40 MG/0.4 ML SQ SCH (13:43)
[2019-11-05] MEDS ORDERED: WARFARIN 7.5 MG TABLET PO-COUM ONE (18:00)
[2019-11-05 19:32] VITALS: BP 87/56
[2019-11-06 00:20] VITALS: BP 109/70
[2019-11-06] MEDS: morphine SULFATE 10 MG/ML, 1ML IVPush PRN ×8 (00:25→23:35)
[2019-11-06] MEDS: PIPERACILLIN/TAZO/PMX 3.375GM 50 ML IV SCH ×4 (00:26→19:26)
[2019-11-06 04:27] LABS: INTERNATIONAL NORMALIZED RATIO 3.32 (0.93-1.1); PROTHROMBIN TIME 35.6 Seconds (9.6-11.5)
[2019-11-06 04:30] LABS: ALBUMIN 1.9 g/dL (3.4-5.0); ANION GAP 6 mmol/L (5-15); CALCIUM 7.7 mg/dL (8.5-10.1); CHLORIDE 103 mmol/L (98-107); CREATININE 1.17 mg/dL (0.7-1.3)
[2019-11-06 04:35] LABS: MEAN CORPUSCULAR HEMOGLOBIN 35.1 pg (27.5-34.5); MEAN CORPUSCULAR HGB CONC 32.3 g/dL (33.2-36.2); MEAN CORPUSCULAR VOLUME 108.7 fL (81-97); MEAN PLATELET VOLUME 7.2 fL (7.4-10.4); PLATELET COUNT 199 x10^3/uL (130-400); RED BLOOD COUNT 2.41 x10^6/uL (4.38-5.82); RED CELL DISTRIBUTION WIDTH 17.3 % (9.4-14.8)
[2019-11-06 05:47] LABS: BASOPHILS # (AUTO) 0.03 x10^3/uL (0-0.1); BASOPHILS % (AUTO) 0 % (0-1); EOSINOPHILS # (AUTO) 0.03 x10^3/uL (0-0.4); EOSINOPHILS % (AUTO) 0 % (1-7); LYMPHOCYTES # (AUTO) 6.03 x10^3/uL (1-3.4); LYMPHOCYTES % (AUTO) 56 % (22-44); MD SCAN; MONOCYTES # (AUTO) 1.12 x10^3/uL (0.2-0.8); MONOCYTES % (AUTO) 10 % (2-9); NEUTROPHILS # (AUTO) 3.61 x10^3/uL (1.8-6.8); NEUTROPHILS % (AUTO) 33 % (42-75)
[2019-11-06 06:12] VITALS: BP 107/71
[2019-11-06] MEDS: ACETAMINOPHEN 500 MG TABLET PO PRN ×2 (06:17→22:32)
[2019-11-06] MEDS ORDERED: POTASSIUM PHOSPHATE 44 MEQ in SODIUM CHLORIDE 0.9% 500 ML IV ONE (07:00)
[2019-11-06] MEDS: ZINC SULFATE 220 MG CAPSULE PO SCH (07:41)
[2019-11-06] MEDS: CHOLECALCIFEROL 5,000u TAB PO SCH (07:41)
[2019-11-06] MEDS: ASCORBIC ACID 500 MG TABLET PO SCH ×2 (07:41→17:56)
[2019-11-06] MEDS: SENNA/DOCUSATE TABLET PO SCH (07:41)
[2019-11-06] MEDS: MULTIVITS,STRESS FORMULA 1 TABLET PO SCH (07:41)
[2019-11-06 12:25] VITALS: BP 107/68
[2019-11-06] MEDS: VANCOMYCIN 1,400 MG in SODIUM CHLORIDE 0.9% 250 ML IV SCH (16:21)
[2019-11-06] MEDS: LACTATED RINGERS 1,000 ML IV SCH (17:00)
[2019-11-06] MEDS ORDERED: WARFARIN 3 MG TABLET PO-COUM ONE (18:00)
[2019-11-06 21:35] VITALS: BP 103/70
[2019-11-07 00:08] VITALS: BP 103/68
[2019-11-07] MEDS: PIPERACILLIN/TAZO/PMX 3.375GM 50 ML IV SCH ×4 (02:21→21:16)
[2019-11-07 05:07] LABS: INTERNATIONAL NORMALIZED RATIO 4.91 (0.93-1.1)
[2019-11-07 05:15] LABS: PROTHROMBIN TIME 52.9 Seconds (9.6-11.5)
[2019-11-07 05:17] LABS: ANION GAP 6 mmol/L (5-15); CALCIUM 7.9 mg/dL (8.5-10.1); CHLORIDE 101 mmol/L (98-107); CREATININE 1.25 mg/dL (0.7-1.3)
[2019-11-07 05:22] LABS: VANCOMYCIN,TROUGH 11.8 mcg/mL (5.0-10.0)
[2019-11-07 05:24] LABS: MEAN CORPUSCULAR HEMOGLOBIN 35.5 pg (27.5-34.5); MEAN CORPUSCULAR HGB CONC 32.6 g/dL (33.2-36.2); MEAN CORPUSCULAR VOLUME 108.9 fL (81-97); MEAN PLATELET VOLUME 6.9 fL (7.4-10.4); PLATELET COUNT 241 x10^3/uL (130-400); RED BLOOD COUNT 2.61 x10^6/uL (4.38-5.82); RED CELL DISTRIBUTION WIDTH 17.2 % (9.4-14.8)
[2019-11-07 06:14] LABS: BASOPHILS # (AUTO) 0.02 x10^3/uL (0-0.1); BASOPHILS % (AUTO) 0 % (0-1); EOSINOPHILS # (AUTO) 0.05 x10^3/uL (0-0.4); EOSINOPHILS % (AUTO) 0 % (1-7); LYMPHOCYTES # (AUTO) 8.09 x10^3/uL (1-3.4); LYMPHOCYTES % (AUTO) 55 % (22-44); MD SCAN; MONOCYTES # (AUTO) 1.48 x10^3/uL (0.2-0.8); MONOCYTES % (AUTO) 10 % (2-9); NEUTROPHILS # (AUTO) 5.08 x10^3/uL (1.8-6.8); NEUTROPHILS % (AUTO) 35 % (42-75)
[2019-11-07 06:53] VITALS: BP 103/69
[2019-11-07] MEDS: SENNA/DOCUSATE TABLET PO SCH (08:11)
[2019-11-07] MEDS: morphine SULFATE 10 MG/ML, 1ML IVPush PRN ×4 (08:16→21:16)
[2019-11-07] MEDS: CHOLECALCIFEROL 5,000u TAB PO SCH (08:21)
[2019-11-07] MEDS: ZINC SULFATE 220 MG CAPSULE PO SCH (08:21)
[2019-11-07] MEDS: ASCORBIC ACID 500 MG TABLET PO SCH ×2 (08:21→17:09)
[2019-11-07] MEDS: MULTIVITS,STRESS FORMULA 1 TABLET PO SCH (08:21)
[2019-11-07] MEDS: VANCOMYCIN 1,400 MG in SODIUM CHLORIDE 0.9% 250 ML IV SCH (09:18)
[2019-11-07 13:27] VITALS: BP 104/64
[2019-11-07] MEDS: ACETAMINOPHEN 500 MG TABLET PO PRN ×2 (14:14→21:23)
[2019-11-07 18:47] VITALS: BP 112/75
[2019-11-08 00:30] VITALS: BP 102/69
[2019-11-08] MEDS: morphine SULFATE 10 MG/ML, 1ML IVPush PRN ×5 (00:33→19:49)
[2019-11-08] MEDS: PIPERACILLIN/TAZO/PMX 3.375GM 50 ML IV SCH ×3 (03:03→17:54)
[2019-11-08] MEDS: VANCOMYCIN 1,400 MG in SODIUM CHLORIDE 0.9% 250 ML IV SCH ×2 (03:49→21:56)
[2019-11-08 05:51] LABS: MEAN CORPUSCULAR HEMOGLOBIN 35.6 pg (27.5-34.5); MEAN CORPUSCULAR HGB CONC 32.9 g/dL (33.2-36.2); MEAN CORPUSCULAR VOLUME 108.2 fL (81-97); MEAN PLATELET VOLUME 7.3 fL (7.4-10.4); PLATELET COUNT 265 x10^3/uL (130-400); RED BLOOD COUNT 2.53 x10^6/uL (4.38-5.82); RED CELL DISTRIBUTION WIDTH 17.3 % (9.4-14.8)
[2019-11-08 05:56] LABS: PROTHROMBIN TIME 65.1 Seconds (9.6-11.5)
[2019-11-08 05:57] LABS: INTERNATIONAL NORMALIZED RATIO 6.03 (0.93-1.1)
[2019-11-08 05:58] LABS: CALCIUM 8.4 mg/dL (8.5-10.1); CHLORIDE 101 mmol/L (98-107)
[2019-11-08 06:00] VITALS: BP 112/77
[2019-11-08 06:01] LABS: ANION GAP 6 mmol/L (5-15)
[2019-11-08 06:24] LABS: BASOPHILS # (AUTO) 0.07 x10^3/uL (0-0.1); BASOPHILS % (AUTO) 1 % (0-1); EOSINOPHILS # (AUTO) 0.12 x10^3/uL (0-0.4); EOSINOPHILS % (AUTO) 1 % (1-7); LYMPHOCYTES # (AUTO) 7.31 x10^3/uL (1-3.4); LYMPHOCYTES % (AUTO) 51 % (22-44); MD SCAN; MONOCYTES # (AUTO) 1.29 x10^3/uL (0.2-0.8); MONOCYTES % (AUTO) 9 % (2-9); NEUTROPHILS # (AUTO) 5.59 x10^3/uL (1.8-6.8); NEUTROPHILS % (AUTO) 39 % (42-75)
[2019-11-08] MEDS: SENNA/DOCUSATE TABLET PO SCH (09:00)
[2019-11-08] MEDS: CHOLECALCIFEROL 5,000u TAB PO SCH (09:30)
[2019-11-08] MEDS: ASCORBIC ACID 500 MG TABLET PO SCH ×2 (09:30→16:18)
[2019-11-08] MEDS: MULTIVITS,STRESS FORMULA 1 TABLET PO SCH (09:30)
[2019-11-08] MEDS: ZINC SULFATE 220 MG CAPSULE PO SCH (09:30)
[2019-11-08] MEDS: POTASSIUM PHOSPHATE 44 MEQ in SODIUM CHLORIDE 0.9% 500 ML IV SCH ×2 (10:07→23:11)
[2019-11-08 12:11] VITALS: BP 101/69
[2019-11-08] MEDS ORDERED: HOLD WARFARIN MC PRN (16:30)
[2019-11-08 17:02] LABS: MICROSCOPIC NOT IND
[2019-11-08] MEDS: ACETAMINOPHEN 500 MG TABLET PO PRN (18:07)
[2019-11-08 18:23] VITALS: BP 100/66
[2019-11-09] MEDS: PIPERACILLIN/TAZO/PMX 3.375GM 50 ML IV SCH ×5 (00:10→23:53)
[2019-11-09 00:42] VITALS: BP 114/78
[2019-11-09] MEDS: morphine SULFATE 10 MG/ML, 1ML IVPush PRN ×7 (02:56→23:20)
[2019-11-09] MEDS: ACETAMINOPHEN 500 MG TABLET PO PRN (06:16)
[2019-11-09 06:27] LABS: CHLORIDE 104 mmol/L (98-107)
[2019-11-09 06:34] LABS: ALBUMIN 1.7 g/dL (3.4-5.0); ANION GAP 10 mmol/L (5-15); CREATININE 0.96 mg/dL (0.7-1.3)
[2019-11-09 06:58] LABS: MEAN CORPUSCULAR HEMOGLOBIN 34.7 pg (27.5-34.5); MEAN CORPUSCULAR HGB CONC 32.2 g/dL (33.2-36.2); MEAN CORPUSCULAR VOLUME 107.8 fL (81-97); MEAN PLATELET VOLUME 6.7 fL (7.4-10.4); PLATELET COUNT 311 x10^3/uL (130-400); RED BLOOD COUNT 2.44 x10^6/uL (4.38-5.82); RED CELL DISTRIBUTION WIDTH 17.1 % (9.4-14.8)
[2019-11-09 07:12] LABS: BASOPHILS # (AUTO) 0.04 x10^3/uL (0-0.1); BASOPHILS % (AUTO) 0 % (0-1); EOSINOPHILS # (AUTO) 0.07 x10^3/uL (0-0.4); EOSINOPHILS % (AUTO) 1 % (1-7); LYMPHOCYTES # (AUTO) 5.91 x10^3/uL (1-3.4); LYMPHOCYTES % (AUTO) 53 % (22-44); MD SCAN; MONOCYTES # (AUTO) 0.92 x10^3/uL (0.2-0.8); MONOCYTES % (AUTO) 8 % (2-9); NEUTROPHILS # (AUTO) 4.26 x10^3/uL (1.8-6.8); NEUTROPHILS % (AUTO) 38 % (42-75)
[2019-11-09 08:07] VITALS: BP 93/59
[2019-11-09] MEDS: POTASSIUM PHOSPHATE 44 MEQ in SODIUM CHLORIDE 0.9% 500 ML IV SCH ×2 (08:38→20:58)
[2019-11-09 08:52] LABS: INTERNATIONAL NORMALIZED RATIO 5.55 (0.93-1.1); PROTHROMBIN TIME 59.9 Seconds (9.6-11.5)
[2019-11-09] MEDS: ASCORBIC ACID 500 MG TABLET PO SCH ×2 (08:59→17:23)
[2019-11-09] MEDS: ZINC SULFATE 220 MG CAPSULE PO SCH (08:59)
[2019-11-09] MEDS: CHOLECALCIFEROL 5,000u TAB PO SCH (09:00)
[2019-11-09] MEDS: MULTIVITS,STRESS FORMULA 1 TABLET PO SCH (09:00)
[2019-11-09] MEDS: SENNA/DOCUSATE TABLET PO SCH (09:00)
[2019-11-09 10:35] VITALS: BP 103/64
[2019-11-09 12:56] VITALS: BP 108/73
[2019-11-09] MEDS: VANCOMYCIN 1,400 MG in SODIUM CHLORIDE 0.9% 250 ML IV SCH (15:17)
[2019-11-09 19:07] VITALS: BP_SYST 105; BP_SYST 181; BP_DIAS 66; BP_DIAS 70
[2019-11-10 00:22] VITALS: BP 115/77
[2019-11-10] MEDS: morphine SULFATE 10 MG/ML, 1ML IVPush PRN ×6 (02:25→22:52)
[2019-11-10 04:49] LABS: BASOPHILS # (AUTO) 0.05 x10^3/uL (0-0.1); BASOPHILS % (AUTO) 1 % (0-1); EOSINOPHILS % (AUTO) 0 % (1-7); LYMPHOCYTES # (AUTO) 3.67 x10^3/uL (1-3.4); LYMPHOCYTES % (AUTO) 34 % (22-44); MD NO; MEAN CORPUSCULAR HEMOGLOBIN 35.2 pg (27.5-34.5); MEAN CORPUSCULAR HGB CONC 32.7 g/dL (33.2-36.2); MEAN CORPUSCULAR VOLUME 107.7 fL (81-97); MEAN PLATELET VOLUME 6.8 fL (7.4-10.4); MONOCYTES # (AUTO) 0.79 x10^3/uL (0.2-0.8); MONOCYTES % (AUTO) 7 % (2-9); NEUTROPHILS # (AUTO) 6.35 x10^3/uL (1.8-6.8); NEUTROPHILS % (AUTO) 58 % (42-75); PLATELET COUNT 320 x10^3/uL (130-400); RED BLOOD COUNT 2.29 x10^6/uL (4.38-5.82); RED CELL DISTRIBUTION WIDTH 16.7 % (9.4-14.8)
[2019-11-10 05:00] LABS: ALBUMIN 1.9 g/dL (3.4-5.0); ANION GAP 8 mmol/L (5-15); CALCIUM 8.3 mg/dL (8.5-10.1); CHLORIDE 104 mmol/L (98-107); CREATININE 0.85 mg/dL (0.7-1.3)
[2019-11-10] MEDS: PIPERACILLIN/TAZO/PMX 3.375GM 50 ML IV SCH ×3 (06:05→20:39)
[2019-11-10 08:20] LABS: INTERNATIONAL NORMALIZED RATIO 6.06 (0.93-1.1); PROTHROMBIN TIME 65.4 Seconds (9.6-11.5)
[2019-11-10 08:56] VITALS: BP 117/82
[2019-11-10] MEDS: ZINC SULFATE 220 MG CAPSULE PO SCH (09:12)
[2019-11-10] MEDS: MULTIVITS,STRESS FORMULA 1 TABLET PO SCH (09:12)
[2019-11-10] MEDS: CHOLECALCIFEROL 5,000u TAB PO SCH (09:13)
[2019-11-10] MEDS: ASCORBIC ACID 500 MG TABLET PO SCH ×2 (09:13→16:49)
[2019-11-10] MEDS: SENNA/DOCUSATE TABLET PO SCH (09:14)
[2019-11-10] MEDS: VANCOMYCIN 1,400 MG in SODIUM CHLORIDE 0.9% 250 ML IV SCH (11:21)
[2019-11-10 13:55] VITALS: BP 108/64
[2019-11-10 19:30] VITALS: BP 123/83
[2019-11-11] MEDS: VANCOMYCIN 1,400 MG in SODIUM CHLORIDE 0.9% 250 ML IV SCH (01:23)
[2019-11-11] MEDS: morphine SULFATE 10 MG/ML, 1ML IVPush PRN ×4 (02:24→17:06)
[2019-11-11 02:48] VITALS: BP 111/72
[2019-11-11] MEDS: PIPERACILLIN/TAZO/PMX 3.375GM 50 ML IV SCH (02:51)
[2019-11-11 06:23] LABS: INTERNATIONAL NORMALIZED RATIO 5.16 (0.93-1.1); PROTHROMBIN TIME 55.6 Seconds (9.6-11.5)
[2019-11-11] MEDS ORDERED: HOLD COUMADIN MC PRN (07:30)
[2019-11-11] MEDS: AMPICILLIN/SULBACTAM 3 GM in SODIUM CHLORIDE 0.9% 100 ML IV SCH ×2 (07:51→13:05)
[2019-11-11 08:29] VITALS: BP 113/78
[2019-11-11] MEDS: ASCORBIC ACID 500 MG TABLET PO SCH ×2 (08:33→17:05)
[2019-11-11] MEDS: CHOLECALCIFEROL 5,000u TAB PO SCH (08:33)
[2019-11-11] MEDS: SENNA/DOCUSATE TABLET PO SCH (08:33)
[2019-11-11] MEDS: ZINC SULFATE 220 MG CAPSULE PO SCH (08:33)
[2019-11-11] MEDS: MULTIVITS,STRESS FORMULA 1 TABLET PO SCH (08:33)
[2019-11-11 12:54] VITALS: BP 109/75
[2019-11-11] MEDS: METOPROLOL TARTRATE 25 MG TAB PO SCH (17:05)
[2019-11-11 18:33] VITALS: BP 123/83
[2019-11-11] MEDS: OXYcodone IR 5MG TABLET PO PRN ×2 (20:02→21:02)
[2019-11-11] MEDS ORDERED: SULFAMETH./TRIMETHOPRIM DS 800MG/160MG TABLET PO SCH (21:00)
[2019-11-12] VITALS (9 sets, daily range): BP systolic 100–136; BP diastolic 63–87
[2019-11-12] MEDS: morphine SULFATE 10 MG/ML, 1ML IVPush PRN ×3 (01:04→22:58)
[2019-11-12] MEDS: OXYcodone IR 5MG TABLET PO PRN ×3 (04:22→20:01)
[2019-11-12 05:48] LABS: INTERNATIONAL NORMALIZED RATIO 4.96 (0.93-1.1)
[2019-11-12] MEDS: METOPROLOL TARTRATE 25 MG TAB PO SCH ×2 (06:01→17:10)
[2019-11-12 06:02] LABS: MEAN CORPUSCULAR HEMOGLOBIN 35.4 pg (27.5-34.5); MEAN CORPUSCULAR HGB CONC 32.4 g/dL (33.2-36.2); MEAN CORPUSCULAR VOLUME 109.1 fL (81-97); MEAN PLATELET VOLUME 6.8 fL (7.4-10.4); PLATELET COUNT 403 x10^3/uL (130-400); RED BLOOD COUNT 1.86 x10^6/uL (4.38-5.82); RED CELL DISTRIBUTION WIDTH 17.4 % (9.4-14.8)
[2019-11-12 06:04] LABS: PROTHROMBIN TIME 53.4 Seconds (9.6-11.5)
[2019-11-12 06:16] LABS: ABSOLUTE RETICS # 0.033 x10^6/uL (0.5-1.5); RETICULOCYTE COUNT % 1.74 % (0.5-1.5)
[2019-11-12 06:18] LABS: RED BLOOD COUNT 1.88 x10^6/uL (4.38-5.82)
[2019-11-12] MEDS ORDERED: PHYTONADIONE 5 MG TABLET PO ONE (07:00)
[2019-11-12 08:24] LABS: BASOPHILS # (AUTO) 0.03 x10^3/uL (0-0.1); BASOPHILS % (AUTO) 1 % (0-1); EOSINOPHILS # (AUTO) 0.01 x10^3/uL (0-0.4); EOSINOPHILS % (AUTO) 0 % (1-7); LYMPHOCYTES # (AUTO) 3.36 x10^3/uL (1-3.4); LYMPHOCYTES % (AUTO) 49 % (22-44); MD SCAN; MONOCYTES # (AUTO) 0.66 x10^3/uL (0.2-0.8); MONOCYTES % (AUTO) 10 % (2-9); NEUTROPHILS # (AUTO) 2.82 x10^3/uL (1.8-6.8); NEUTROPHILS % (AUTO) 41 % (42-75)
[2019-11-12 08:32] LABS: ALANINE AMINOTRANSFERASE 27 U/L (12-78); ALBUMIN 2.1 g/dL (3.4-5.0); ANION GAP 8 mmol/L (5-15); CALCIUM 8.4 mg/dL (8.5-10.1); CHLORIDE 111 mmol/L (98-107); CREATININE 0.93 mg/dL (0.7-1.3)
[2019-11-12 08:35] LABS: ALKALINE PHOSPHATASE 42 U/L (45-117); BILIRUBIN,TOTAL 0.3 mg/dL (0.2-1.0); TOTAL PROTEIN 7.2 g/dL (6.4-8.2)
[2019-11-12] MEDS: SENNA/DOCUSATE TABLET PO SCH (09:00)
[2019-11-12] MEDS: ZINC SULFATE 220 MG CAPSULE PO SCH (09:09)
[2019-11-12] MEDS: CALCIUM CARBONATE 500 MG TABLET PO SCH ×2 (09:10→20:02)
[2019-11-12] MEDS: MULTIVITS,STRESS FORMULA 1 TABLET PO SCH (09:10)
[2019-11-12] MEDS: ASCORBIC ACID 500 MG TABLET PO SCH ×2 (09:10→17:10)
[2019-11-12] MEDS: CHOLECALCIFEROL 5,000u TAB PO SCH (09:17)
[2019-11-12] MEDS ORDERED: POTASSIUM CHLORIDE 20 MEQ TAB.ER.PRT PO ONE (10:00)
[2019-11-12] MEDS: CEPHALEXIN 500 MG CAPSULE PO SCH ×2 (17:10→20:01)
[2019-11-12 18:03] LABS: INTERNATIONAL NORMALIZED RATIO 3.23 (0.93-1.1); PROTHROMBIN TIME 34.7 Seconds (9.6-11.5)
[2019-11-13 00:03] VITALS: BP 115/61
[2019-11-13] MEDS: CEPHALEXIN 500 MG CAPSULE PO SCH ×2 (05:50→12:17)
[2019-11-13] MEDS: METOPROLOL TARTRATE 25 MG TAB PO SCH (05:50)
[2019-11-13] MEDS: OXYcodone IR 5MG TABLET PO PRN (05:50)
[2019-11-13 06:11] LABS: INTERNATIONAL NORMALIZED RATIO 1.71 (0.93-1.1); PROTHROMBIN TIME 18.2 Seconds (9.6-11.5)
[2019-11-13 06:12] LABS: MEAN CORPUSCULAR HEMOGLOBIN 33.7 pg (27.5-34.5); MEAN CORPUSCULAR VOLUME 105.4 fL (81-97); MEAN PLATELET VOLUME 6.8 fL (7.4-10.4); PLATELET COUNT 349 x10^3/uL (130-400); RED CELL DISTRIBUTION WIDTH 20.3 % (9.4-14.8)
[2019-11-13 06:25] VITALS: BP 110/68
[2019-11-13 06:28] LABS: ANION GAP 4 mmol/L (5-15); CALCIUM 8.7 mg/dL (8.5-10.1); CHLORIDE 113 mmol/L (98-107)
[2019-11-13 06:31] LABS: CREATININE 0.94 mg/dL (0.7-1.3)
[2019-11-13 06:39] LABS: MD YES
[2019-11-13 06:41] LABS: BASOS#(MANUAL) 0.08 x10^3/uL (0-0.1); BASOS% (MANUAL) 1 % (0-1); LYMPH#(MANUAL) 4.06 x10^3/uL (1-3.4); LYMPHS% (MANUAL) 52 % (22-44); MONOS#(MANUAL) 0.62 x10^3/uL (0.3-2.7); MONOS% (MANUAL) 8 % (2-9); SEG#(MANUAL) 3.04 x10^3/uL (1.8-6.8); SEGS% (MANUAL) 39 % (42-75)
[2019-11-13 06:53] LABS: <PLATELET ESTIMATE> ADEQUATE; <PLT MORPHOLOGY> NORMAL PLT MORPH; ANISOCYTOSIS 1+
[2019-11-13] MEDS ORDERED: POTASSIUM CHLORIDE 20 MEQ TAB.ER.PRT PO ONE (07:00)
[2019-11-13] MEDS ORDERED: WARF6TAB PO (08:16)
[2019-11-13] MEDS ORDERED: PRED10TA PO (08:16)
[2019-11-13] MEDS ORDERED: CEPH-376 PO ×3 (08:16→09:50)
[2019-11-13] MEDS: SENNA/DOCUSATE TABLET PO SCH (09:00)
[2019-11-13] MEDS: ASCORBIC ACID 500 MG TABLET PO SCH (09:32)
[2019-11-13] MEDS: CHOLECALCIFEROL 5,000u TAB PO SCH (09:32)
[2019-11-13] MEDS: ZINC SULFATE 220 MG CAPSULE PO SCH (09:32)
[2019-11-13] MEDS: CALCIUM CARBONATE 500 MG TABLET PO SCH (09:32)
[2019-11-13] MEDS: MULTIVITS,STRESS FORMULA 1 TABLET PO SCH (09:32)
== END 2019-11-13 13:06 | disposition home health service (06) | DRG 383 ==
LOC: ED 15:23 → SUATTDRO 16:44 → EDIP 17:28 → 3N 18:30 → DCLOUNGE 11-13 12:46
PROVIDERS: ADMIT Internal Medicine; ATTEND Hospitalist
PROC: 30233N1 Transfusion of Nonautologous Red Blood Cells into Peripheral Vein, Percutaneous Approach (ICD-10-PCS; principal; 2019-11-12)
DX: L03.115 Cellulitis of right lower limb (principal); L97.919 Non-pressure chronic ulcer of unspecified part of right lower leg with unspecified severity; D64.9 Anemia, unspecified; D68.59 Other primary thrombophilia; D75.A Glucose-6-phosphate dehydrogenase (G6PD) deficiency without anemia; E43 Unspecified severe protein-calorie malnutrition; E78.5 Hyperlipidemia, unspecified; G43.909 Migraine, unspecified, not intractable, without status migrainosus; I10 Essential (primary) hypertension; I48.91 Unspecified atrial fibrillation; I73.9 Peripheral vascular disease, unspecified; T45.515A Adverse effect of anticoagulants, initial encounter; L02.415 Cutaneous abscess of right lower limb; M35.2 Behcet's disease; Z79.01 Long term (current) use of anticoagulants; Z79.52 Long term (current) use of systemic steroids; Z86.73 Personal history of transient ischemic attack (TIA), and cerebral infarction without residual deficits; Z87.891 Personal history of nicotine dependence; Z88.6 Allergy status to analgesic agent; Y92.89 Other specified places as the place of occurrence of the external cause; Z68.22 Body mass index [BMI] 22.0-22.9, adult; Z88.5 Allergy status to narcotic agent; Z88.8 Allergy status to other drugs, medicaments and biological substances
CPT/HCPCS: 36415; 71045; 71046; 80048; 80053; 80069; 80202; 81001; 81003; 82607; 82728; 83010; 83036; 83540; 83550; 83615; 83735; 84100; 84443; 85014; 85018; 85025; 85045; 85610; 85651; 86140; 86361; 86850; 86900; 86923; 87040; 87070; 87147; 87205; 93306; 96374; 99285; G0378; J0295; J1650; J2543; J3370; Q0162; A9575; J2270; J3475; J7030; J7040; J7050; J7120; J7512; P9016; Q0163

== ENCOUNTER 2019-11-28 01:41 | Emergency (ER) | payer MEDICAID ==
[~2019-11-28] VITALS: Ht 179.1 cm; Wt 83.2 kg
[~2019-11-28 01:41] MED LIST changes: +CEPH-376 PO; +PRED10TA PO
[2019-11-28] MEDS ORDERED: MORPHINE SULFATE 4 MG/ML, 1ML ONE ×3 (02:09→04:11)
[2019-11-28] MEDS ORDERED: ONDANSETRON 2MG/ML, 2ML ONE (02:09)
[2019-11-28] MEDS ORDERED: ONDANSETRON 2MG/ML, 2ML IVPush ONE (02:30)
[2019-11-28] MEDS: MORPHINE SULFATE 4 MG/ML, 1ML IVPush PRN ×2 (02:56→03:38)
[2019-11-28 03:19] LABS: ALANINE AMINOTRANSFERASE 17 U/L (12-78); ALBUMIN 2.7 g/dL (3.4-5.0); ANION GAP 5 mmol/L (5-15); CALCIUM 8.2 mg/dL (8.5-10.1); CHLORIDE 110 mmol/L (98-107); CREATININE 0.84 mg/dL (0.7-1.3)
[2019-11-28 03:20] LABS: ALKALINE PHOSPHATASE 49 U/L (45-117); BILIRUBIN,TOTAL 0.4 mg/dL (0.2-1.0); TOTAL PROTEIN 6.9 g/dL (6.4-8.2)
[2019-11-28 03:22] LABS: MEAN CORPUSCULAR HEMOGLOBIN 34.5 pg (27.5-34.5); MEAN CORPUSCULAR HGB CONC 32.7 g/dL (33.2-36.2); MEAN CORPUSCULAR VOLUME 105.5 fL (81-97); MEAN PLATELET VOLUME 6.2 fL (7.4-10.4); PLATELET COUNT 286 x10^3/uL (130-400); RED BLOOD COUNT 2.63 x10^6/uL (4.38-5.82); RED CELL DISTRIBUTION WIDTH 22.8 % (9.4-14.8)
--- NOTE | 2019-11-28 03:31 | NUR ---
Pt provided with snack per request, pt resting comfortably in rwarren watching TV, NADN, VSS
[2019-11-28 03:45] LABS: INTERNATIONAL NORMALIZED RATIO 4.65 (0.93-1.1)
[2019-11-28 03:50] LABS: PROTHROMBIN TIME 50.1 Seconds (9.6-11.5)
[2019-11-28 03:53] LABS: BASOPHILS # (AUTO) 0.04 x10^3/uL (0-0.1); BASOPHILS % (AUTO) 0 % (0-1); EOSINOPHILS # (AUTO) 0.02 x10^3/uL (0-0.4); EOSINOPHILS % (AUTO) 0 % (1-7); LYMPHOCYTES # (AUTO) 4.96 x10^3/uL (1-3.4); LYMPHOCYTES % (AUTO) 42 % (22-44); MD SCAN; MONOCYTES % (AUTO) 8 % (2-9); NEUTROPHILS # (AUTO) 5.88 x10^3/uL (1.8-6.8); NEUTROPHILS % (AUTO) 50 % (42-75)
[2019-11-28] MEDS ORDERED: CEFTRIAXONE PMX 1GM/50ML 50 ML ONE (04:10)
[2019-11-28 04:30] VITALS: BP 137/77
[2019-11-28] MEDS ORDERED: CEFTRIAXONE PMX 1GM/50ML 50 ML IV ONE (04:30)
[2019-11-28] MEDS ORDERED: MORPHINE SULFATE 4 MG/ML, 1ML IVPush ONE (04:30)
== END 2019-11-28 04:32 | disposition home or self-care (01) ==
LOC: ED 02:33
DX: D72.829 Elevated white blood cell count, unspecified (principal); L03.116 Cellulitis of left lower limb; E11.9 Type 2 diabetes mellitus without complications; E78.5 Hyperlipidemia, unspecified; I11.9 Hypertensive heart disease without heart failure; Z90.89 Acquired absence of other organs; Z87.891 Personal history of nicotine dependence; Z86.73 Personal history of transient ischemic attack (TIA), and cerebral infarction without residual deficits
CPT/HCPCS: 36415; 80053; 83605; 84145; 85025; 85610; 87040; 93971; 96365; 96375; 96376; 99284; J0696; J2270; J2405

== ENCOUNTER 2019-12-02 04:51 | Emergency (ER) | payer MEDICAID ==
[~2019-12-02] VITALS: Ht 180.3 cm; Wt 73.7 kg
[2019-12-02 04:55] VITALS: BP 113/81
== END 2019-12-02 05:07 ==
LOC: ED 05:01
DX: Z48.00 Encounter for change or removal of nonsurgical wound dressing (principal); Z53.21 Procedure and treatment not carried out due to patient leaving prior to being seen by health care provider

== ENCOUNTER 2020-01-12 23:37 | Inpatient (IN) | payer MEDICAID ==
[~2020-01-12] VITALS: Ht 177.8 cm; Wt 64.8 kg
--- NOTE | 2020-01-12 23:59 | NUR ---
ED MD at bedside
[2020-01-13] MEDS ORDERED: HYDROcodone/APAP 5/325 TABLET PO PRN
[2020-01-13] MEDS ORDERED: HYDROcodone/APAP 5/325 TABLET ONE (00:21)
[2020-01-13] MEDS ORDERED: HYDROcodone/APAP 5/325 TABLET PO ONE (00:30)
[2020-01-13] MEDS ORDERED: HYDROmorphone 1 MG/ML, 1ML INJ IM STA (01:12)
[2020-01-13] MEDS ORDERED: HYDROmorphone 1 MG/ML, 1ML INJ ONE (01:14)
[2020-01-13 01:48] LABS: MEAN CORPUSCULAR HEMOGLOBIN 35.1 pg (27.5-34.5); MEAN CORPUSCULAR HGB CONC 32.5 g/dL (33.2-36.2); MEAN CORPUSCULAR VOLUME 108.3 fL (81-97); MEAN PLATELET VOLUME 6.2 fL (7.4-10.4); PLATELET COUNT 228 x10^3/uL (130-400); RED BLOOD COUNT 2.93 x10^6/uL (4.38-5.82); RED CELL DISTRIBUTION WIDTH 22.2 % (9.4-14.8)
[2020-01-13 01:58] LABS: ALBUMIN 3.3 g/dL (3.4-5.0); ANION GAP 7 mmol/L (5-15); CALCIUM 8.6 mg/dL (8.5-10.1); CHLORIDE 109 mmol/L (98-107)
[2020-01-13 01:59] LABS: CREATININE 1.01 mg/dL (0.7-1.3)
[2020-01-13] MEDS ORDERED: MORPHINE SULFATE 4 MG/ML, 1ML IVPush PRN (02:00)
[2020-01-13] MEDS ORDERED: MORPHINE SULFATE 4 MG/ML, 1ML ONE (02:09)
[2020-01-13 02:24] LABS: BASOPHILS # (AUTO) 0.06 x10^3/uL (0-0.1); BASOPHILS % (AUTO) 0 % (0-1); EOSINOPHILS # (AUTO) 0.01 x10^3/uL (0-0.4); EOSINOPHILS % (AUTO) 0 % (1-7); LYMPHOCYTES # (AUTO) 5.88 x10^3/uL (1-3.4); LYMPHOCYTES % (AUTO) 46 % (22-44); MD SCAN; MONOCYTES # (AUTO) 0.25 x10^3/uL (0.2-0.8); MONOCYTES % (AUTO) 2 % (2-9); NEUTROPHILS % (AUTO) 51 % (42-75)
--- NOTE | 2020-01-13 02:43 | NUR ---
Hospitalist at bedside
--- NOTE | 2020-01-13 02:51 | NUR ---
Report given to inpatient RN
[2020-01-13] MEDS ORDERED: ACETAMINOPHEN 325 MG TABLET PO PRN (03:30)
[2020-01-13] MEDS ORDERED: LIDODERM 5% PATCH TD PRN (03:30)
[2020-01-13] MEDS ORDERED: LABETALOL 5MG/ML, 20ML IVPush PRN (03:30)
[2020-01-13] MEDS ORDERED: GABAPENTIN 300 MG CAPSULE PO PRN (03:30)
[2020-01-13] MEDS ORDERED: PROMETHAZINE 25 MG/ML, 1ML IM PRN (03:30)
[2020-01-13] MEDS ORDERED: ONDANSETRON 2MG/ML, 2ML IVPush PRN (03:30)
[2020-01-13 03:34] VITALS: BP 112/76
[2020-01-13] MEDS: LACTATED RINGERS 1,000 ML IV SCH ×2 (03:38→17:38)
[2020-01-13] MEDS: morphine SULFATE 10 MG/ML, 1ML IVPush PRN ×5 (04:47→21:19)
[2020-01-13 07:21] VITALS: BP 109/76
[2020-01-13] MEDS: FAMOTIDINE 20 MG TABLET PO SCH ×2 (08:15→19:52)
[2020-01-13 13:02] VITALS: BP 106/71
[2020-01-13] MEDS: CYANOCOBALAMIN 1,000 MCG TABLET PO SCH (13:06)
[2020-01-13] MEDS: CHOLECALCIFEROL 5,000u TAB PO SCH (13:06)
[2020-01-13] MEDS: OXYcodone IR 5MG TABLET PO PRN (19:52)
[2020-01-13 21:23] VITALS: BP 118/78
[2020-01-14] MEDS: morphine SULFATE 10 MG/ML, 1ML IVPush PRN ×7 (00:37→23:34)
[2020-01-14 01:07] VITALS: BP 117/77
[2020-01-14] MEDS: OXYcodone IR 5MG TABLET PO PRN ×3 (05:19→21:44)
[2020-01-14] MEDS: LACTATED RINGERS 1,000 ML IV SCH ×2 (06:24→19:30)
[2020-01-14 06:32] VITALS: BP 127/83
[2020-01-14] MEDS: CHOLECALCIFEROL 5,000u TAB PO SCH (07:43)
[2020-01-14] MEDS: CYANOCOBALAMIN 1,000 MCG TABLET PO SCH (07:43)
[2020-01-14] MEDS: FAMOTIDINE 20 MG TABLET PO SCH ×2 (07:43→21:43)
[2020-01-14] MEDS ORDERED: CHLORHEXIDINE 15 ML UDC ONE (09:07)
[2020-01-14] MEDS ORDERED: BUPIVACAINE/PF 0.5% ONE ×2 (09:23→10:32)
[2020-01-14] MEDS ORDERED: EPINEPHRINE 1 MG/ML, 1ML ONE (09:23)
[2020-01-14] MEDS ORDERED: HYDROCORTISONE 100 MG INJ. ONE (09:35)
[2020-01-14] MEDS ORDERED: MIDAZOLAM 1 MG/ML, 2ML ONE (09:38)
[2020-01-14] MEDS ORDERED: FENTANYL PF 250 MCG/5ML ONE (09:38)
[2020-01-14] MEDS ORDERED: ONDANSETRON 2MG/ML, 2ML ONE (10:31)
[2020-01-14] MEDS ORDERED: PROPOFOL 10 MG/ML, 20ML ONE (10:31)
[2020-01-14] MEDS ORDERED: CEFAZOLIN 1,000 MG ONE (10:31)
[2020-01-14] MEDS ORDERED: LIDOCAINE-MPF 2% ,5ML ONE (10:31)
[2020-01-14] MEDS ORDERED: LABETALOL 5MG/ML, 20ML ONE (11:21)
[2020-01-14] MEDS ORDERED: FENTANYL PF 100 MCG/2ML ONE (11:23)
[2020-01-14] MEDS: FENTANYL PF 100 MCG/2ML IV PRN ×2 (11:25→11:32)
[2020-01-14] MEDS ORDERED: HYDROmorphone 1 MG/ML, 1ML INJ IVPush PRN (11:30)
[2020-01-14] MEDS ORDERED: LORazepam 2 MG/ML, 1ML IVPush PRN (11:30)
[2020-01-14] MEDS ORDERED: PROMETHAZINE 25 MG/ML, 1ML IVPush PRN (11:30)
[2020-01-14] MEDS ORDERED: OXYcodone 5 MG/5 ML ORAL.SOL UDC PO PRN (11:30)
[2020-01-14] MEDS ORDERED: MEPERIDINE/PF 25MG/0.5ML IVPush PRN (11:30)
[2020-01-14] MEDS ORDERED: ALBUTEROL SULFATE 2.5 MG/3 ML NPPB PRN (11:30)
[2020-01-14] MEDS ORDERED: LABETALOL 5MG/ML, 20ML IV PRN (11:30)
[2020-01-14] MEDS ORDERED: OXYcodone 5 MG/5 ML ORAL.SOL UDC ONE (11:32)
[2020-01-14 12:14] VITALS: BP 117/79
[2020-01-14] MEDS: CYCLOBENZAPRINE 10 MG TABLET PO PRN (13:17)
[2020-01-14 13:45] VITALS: BP 136/92
[2020-01-14] MEDS: CEFAZOLIN PMX 1GM/50ML 50 ML IV SCH (17:27)
[2020-01-14 20:38] VITALS: BP 120/77
[2020-01-14] MEDS ORDERED: ATORVASTATIN 20 MG TABLET PO SCH (21:00)
[2020-01-15] MEDS: CYCLOBENZAPRINE 10 MG TABLET PO PRN (00:35)
[2020-01-15] MEDS: OXYcodone IR 5MG TABLET PO PRN ×3 (02:11→09:55)
[2020-01-15] MEDS: CEFAZOLIN PMX 1GM/50ML 50 ML IV SCH ×2 (02:11→08:00)
[2020-01-15] MEDS: morphine SULFATE 10 MG/ML, 1ML IVPush PRN ×4 (02:44→11:53)
[2020-01-15 05:10] VITALS: BP 95/65
[2020-01-15 07:04] VITALS: BP 140/95
[2020-01-15] MEDS: CHOLECALCIFEROL 5,000u TAB PO SCH (08:00)
[2020-01-15] MEDS: FAMOTIDINE 20 MG TABLET PO SCH (08:00)
[2020-01-15] MEDS: CYANOCOBALAMIN 1,000 MCG TABLET PO SCH (08:00)
[2020-01-15] MEDS ORDERED: RIVA20TA PO (09:24)
[2020-01-15] MEDS ORDERED: RIVAROXABAN 20 MG TABLET PO SCH (11:00)
[2020-01-15] MEDS ORDERED: ATOR20TA37 PO (11:34)
[2020-01-15] MEDS ORDERED: CHOL500045 PO (11:34)
[2020-01-15] MEDS ORDERED: GABA300C PO (11:34)
[2020-01-15] MEDS ORDERED: OXYC5TAB3 PO (11:34)
[2020-01-15 13:06] VITALS: BP 134/82
== END 2020-01-15 13:30 | disposition home or self-care (01) | DRG 313 ==
LOC: ED 01-13 00:07 → INTOOBSV 01-13 01:42 → EDIP 01-13 01:42 → 3N 01-13 03:22 → OBSVTOIN 01-13 18:05 → 4NE 01-14 12:08 → DCLOUNGE 01-15 13:19
PROVIDERS: ADMIT Family Medicine; ATTEND Hospitalist
PROC: 0QSH04Z Reposition Left Tibia with Internal Fixation Device, Open Approach (ICD-10-PCS; principal; 2020-01-14 16:00)
DX: S82.142A Displaced bicondylar fracture of left tibia, initial encounter for closed fracture (principal); S62.334A Displaced fracture of neck of fourth metacarpal bone, right hand, initial encounter for closed fracture; D53.9 Nutritional anemia, unspecified; D72.829 Elevated white blood cell count, unspecified; E11.51 Type 2 diabetes mellitus with diabetic peripheral angiopathy without gangrene; E44.1 Mild protein-calorie malnutrition; E53.8 Deficiency of other specified B group vitamins; E55.9 Vitamin D deficiency, unspecified; E78.5 Hyperlipidemia, unspecified; F17.210 Nicotine dependence, cigarettes, uncomplicated; I11.9 Hypertensive heart disease without heart failure; M35.2 Behcet's disease; Z79.01 Long term (current) use of anticoagulants; Z86.73 Personal history of transient ischemic attack (TIA), and cerebral infarction without residual deficits; Z86.718 Personal history of other venous thrombosis and embolism; Z86.711 Personal history of pulmonary embolism; Z82.3 Family history of stroke; Z79.52 Long term (current) use of systemic steroids; G43.909 Migraine, unspecified, not intractable, without status migrainosus; W10.9XXA Fall (on) (from) unspecified stairs and steps, initial encounter; Y92.009 Unspecified place in unspecified non-institutional (private) residence as the place of occurrence of the external cause; Y93.89 Activity, other specified; Y99.0 Civilian activity done for income or pay; Z88.6 Allergy status to analgesic agent; Z88.5 Allergy status to narcotic agent; Z91.018 Allergy to other foods; Z20.828 Contact with and (suspected) exposure to other viral communicable diseases
CPT/HCPCS: J3490; S0020; 36415; 76000; 80048; 82040; 82306; 82607; 82728; 83540; 83550; 85025; 87635; 96372; 99285; C1713; G0378; J0171; J0690; J1170; J2250; J2405; J2704; J3010; J1720; J2270; J7120; J7512

== ENCOUNTER 2020-02-08 01:18 | Emergency (ER) | payer MEDICAID ==
[~2020-02-08] VITALS: Ht 177.8 cm; Wt 70.0 kg
[~2020-02-08 01:18] MED LIST changes: +ATOR20TA37 PO; +CHOL500045 PO; +GABA300C PO; +RIVA20TA PO
--- NOTE | 2020-02-08 01:37 | NUR ---
PT TO ED WITH LEFT ARM AND LEFT LEG NUMBNESS. HAD SURGERY TO REPAIR LEFT TIBIA X3 WEEKS AGO, HX OF BLOOD CLOTS, IS ON XARELTO REPORTS COMPLIANCE. PT SURGICAL SITE ITSELF APPEARS WELL HEALED, LEFT KNEE IS SWOLLEN AND TENDER TO PALPATION. ERP IN ROOM TO EVAL PT AND DISCUSS POC. MONITORING IN PLACE, CALL LIGHT WITHIN REACH, ALL SAFETY MEASURES IN PLACE.
--- NOTE | 2020-02-08 02:59 | NUR ---
PT PROVIDED ADDITIONAL BLANKET.
[2020-02-08 03:41] VITALS: BP 110/75
--- NOTE | 2020-02-08 03:41 | NUR ---
PT RESTING ON GURNEY, MONITORING IN PLACE. CALL LIGHT WITHIN REACH, ALL SAFETY MEASURES IN PLACE.
== END 2020-02-08 04:24 | disposition home or self-care (01) ==
LOC: ED 01:31
DX: M79.662 Pain in left lower leg (principal); M25.512 Pain in left shoulder; R20.0 Anesthesia of skin; E11.9 Type 2 diabetes mellitus without complications; I10 Essential (primary) hypertension; E78.5 Hyperlipidemia, unspecified; G43.909 Migraine, unspecified, not intractable, without status migrainosus; Z86.73 Personal history of transient ischemic attack (TIA), and cerebral infarction without residual deficits; Z90.49 Acquired absence of other specified parts of digestive tract
CPT/HCPCS: 99284

== ENCOUNTER 2020-04-07 10:15 | Inpatient (IN) | payer MEDICAID ==
[~2020-04-07] VITALS: Ht 177.8 cm; Wt 74.3 kg
[~2020-04-07 10:15] MED LIST changes: -CLIN300C8 PO; +CLIN300C9 PO
--- NOTE | 2020-04-07 11:10 | NUR ---
awaiting md. vss. perkins. as
[2020-04-07] MEDS ORDERED: ONDANSETRON ODT 4 MG ONE (11:44)
[2020-04-07] MEDS ORDERED: HYDROmorphone 1 MG/ML, 1ML INJ ONE ×3 (11:45→17:04)
[2020-04-07] MEDS ORDERED: OXYcodone/APAP 10/325MG TABLET ONE (11:51)
[2020-04-07] MEDS ORDERED: ONDANSETRON ODT 8 MG ONE (11:51)
[2020-04-07] MEDS ORDERED: ONDANSETRON 2MG/ML, 2ML IVPush ONE (12:00)
[2020-04-07] MEDS ORDERED: OXYcodone/APAP 10/325MG TABLET PO ONE (12:00)
[2020-04-07] MEDS ORDERED: LIDOCAINE 2%, 20ML SQ ONE (12:00)
[2020-04-07] MEDS ORDERED: ONDANSETRON ODT 8 MG PO ONE (12:00)
[2020-04-07] MEDS ORDERED: HYDROmorphone 2 MG/ML, 1ML IVPush ONE (12:00)
--- NOTE | 2020-04-07 12:05 | NUR ---
meds per mar, I/D set up. as
[2020-04-07] MEDS ORDERED: LIDOCAINE-MPF 1%, 5ML ONE (12:38)
[2020-04-07] MEDS ORDERED: SODIUM CHLORIDE FLUSH 10ML SYR IVF ONE (13:30)
[2020-04-07] MEDS ORDERED: HYDROmorphone 2 MG/ML, 1ML IVPush PRN (13:30)
[2020-04-07] MEDS ORDERED: OMNIPAQUE 350 MG/ML, 100ML BOTTLE ONE (13:45)
--- NOTE | 2020-04-07 13:56 | NUR ---
report to roselia guy. as
[2020-04-07] MEDS ORDERED: FENTANYL PF 250 MCG/5ML ONE (15:11)
[2020-04-07] MEDS ORDERED: MIDAZOLAM 1 MG/ML, 2ML ONE (15:12)
[2020-04-07] MEDS ORDERED: SUCCINYLCHOLINE 20 MG/ML, 10ML ONE (15:14)
[2020-04-07] MEDS ORDERED: ONDANSETRON 2MG/ML, 2ML ONE (15:14)
[2020-04-07] MEDS ORDERED: PROPOFOL 10 MG/ML, 20ML ONE (15:14)
[2020-04-07 15:22] LABS: BASOPHILS % (AUTO) 0 % (0-1); EOSINOPHILS % (AUTO) 0 % (1-7); LYMPHOCYTES % (AUTO) 60 % (22-44); MEAN CORPUSCULAR HEMOGLOBIN 36.2 pg (27.5-34.5); MEAN CORPUSCULAR HGB CONC 32.9 g/dL (33.2-36.2); MEAN PLATELET VOLUME 7.8 fL (7.4-10.4); MONOCYTES % (AUTO) 1 % (2-9); NEUTROPHILS % (AUTO) 39 % (42-75); PLATELET COUNT 199 x10^3/uL (130-400); RED BLOOD COUNT 3.05 x10^6/uL (4.38-5.82); RED CELL DISTRIBUTION WIDTH 17.6 % (9.4-14.8)
[2020-04-07 15:24] LABS: ALBUMIN 3.1 g/dL (3.4-5.0); ANION GAP 10 mmol/L (5-15); CALCIUM 8.9 mg/dL (8.5-10.1); CHLORIDE 107 mmol/L (98-107)
[2020-04-07] MEDS ORDERED: PROMETHAZINE 25 MG/ML, 1ML IVPush PRN (15:30)
[2020-04-07] MEDS ORDERED: CHLORHEXIDINE 15 ML UDC MM ONE (15:30)
[2020-04-07] MEDS ORDERED: MELATONIN 5 MG TABLET PO PRN (15:30)
[2020-04-07] MEDS ORDERED: LABETALOL 5MG/ML, 20ML IV PRN (15:30)
[2020-04-07] MEDS ORDERED: ENALAPRILAT 1.25 MG/ML, 2ML IVPush PRN (15:30)
[2020-04-07] MEDS ORDERED: OXYcodone 5 MG/5 ML ORAL.SOL UDC PO PRN (15:30)
[2020-04-07] MEDS ORDERED: POLYETHYLENE GLYCOL 17 GM PACKET PO PRN (15:30)
[2020-04-07] MEDS ORDERED: ACETAMINOPHEN 325 MG TABLET PO PRN (15:30)
[2020-04-07] MEDS ORDERED: ONDANSETRON 2MG/ML, 2ML IVPush PRN (15:30)
[2020-04-07] MEDS ORDERED: hydrALAzine 20 MG/ML, 1ML IV PRN (15:30)
[2020-04-07] MEDS ORDERED: EPHEDRINE 50 MG/ML, 1ML IVPush PRN (15:30)
[2020-04-07] MEDS ORDERED: DOCUSATE 100 MG CAPSULE PO PRN (15:30)
[2020-04-07] MEDS ORDERED: HYDROCORTISONE 100 MG INJ. ONE (15:55)
[2020-04-07 15:59] LABS: ANISOCYTOSIS 1+; MD MORPH REVIEW ONLY
[2020-04-07 16:00] LABS: OVALOCYTES 1+
[2020-04-07] MEDS ORDERED: VANCOMYCIN 1,800 MG in SODIUM CHLORIDE 0.9% 250 ML IV ONE (16:00)
[2020-04-07] MEDS ORDERED: LACTATED RINGERS 1,000 ML IV SCH (16:00)
[2020-04-07] MEDS ORDERED: VANCOMYCIN PER PHARMACY MC ONE (16:00)
[2020-04-07 16:01] LABS: <PLATELET ESTIMATE> ADEQUATE; <PLT MORPHOLOGY> NORMAL PLT MORPH
[2020-04-07 16:02] LABS: PMNS WITH VACUOLES 1+
[2020-04-07] MEDS ORDERED: BUPIVACAINE/PF 0.5% ONE (16:22)
[2020-04-07] MEDS ORDERED: EPINEPHRINE 1 MG/ML, 1ML ONE (16:23)
[2020-04-07] MEDS: FENTANYL PF 100 MCG/2ML IV PRN ×4 (16:41→17:58)
[2020-04-07] MEDS ORDERED: FENTANYL PF 100 MCG/2ML ONE (17:04)
[2020-04-07] MEDS ORDERED: OXYcodone 5 MG/5 ML ORAL.SOL UDC ONE (17:05)
[2020-04-07] MEDS: HYDROmorphone 1 MG/ML, 1ML INJ IVPush PRN ×2 (17:08→17:21)
[2020-04-07] MEDS ORDERED: EPHEDRINE 50 MG/ML, 1ML ONE (17:27)
[2020-04-07] MEDS ORDERED: VANCOMYCIN PER PHARMACY MC PRN (18:00)
[2020-04-07] MEDS ORDERED: PHARMACOKINETIC CONSULTATION MC ONE (18:00)
[2020-04-07] MEDS ORDERED: PHARMACOKINETIC MONITORING MC PRN (18:00)
[2020-04-07] MEDS ORDERED: LACTATED RINGERS 1,000 ML IVBOLUS ONE (18:00)
[2020-04-07] MEDS: GABAPENTIN 300 MG CAPSULE PO PRN (19:36)
[2020-04-07] MEDS: HYDROmorphone 2 MG/ML, 1ML IVPush PRN ×2 (19:54→20:33)
[2020-04-07] MEDS: AMPICILLIN/SULBACTAM 1,500 MG in SODIUM CHLORIDE 0.9% 50 ML IV SCH (20:33)
[2020-04-07] MEDS: LACTATED RINGERS 1,000 ML IV SCH (20:36)
[2020-04-07] MEDS: ATORVASTATIN 20 MG TABLET PO SCH (20:44)
[2020-04-07] MEDS: OXYcodone IR 5MG TABLET PO PRN (21:40)
[2020-04-07 23:10] VITALS: BP 100/66
[2020-04-08] VITALS (7 sets, daily range): BP systolic 94–109; BP diastolic 58–70
[2020-04-08] MEDS: OXYcodone IR 5MG TABLET PO PRN ×5 (01:29→20:37)
[2020-04-08] MEDS: AMPICILLIN/SULBACTAM 1,500 MG in SODIUM CHLORIDE 0.9% 50 ML IV SCH ×2 (02:33→09:51)
[2020-04-08] MEDS: HYDROmorphone 2 MG/ML, 1ML IVPush PRN ×6 (02:33→22:59)
[2020-04-08] MEDS ORDERED: VANCOMYCIN 1,400 MG in SODIUM CHLORIDE 0.9% 250 ML IV SCH (05:00)
[2020-04-08 05:29] LABS: BASOPHILS % (AUTO) 0 % (0-1); EOSINOPHILS % (AUTO) 0 % (1-7); LYMPHOCYTES % (AUTO) 22 % (22-44); MD NO; MEAN CORPUSCULAR HEMOGLOBIN 36.8 pg (27.5-34.5); MEAN CORPUSCULAR HGB CONC 33.2 g/dL (33.2-36.2); MEAN PLATELET VOLUME 8.2 fL (7.4-10.4); MONOCYTES % (AUTO) 8 % (2-9); NEUTROPHILS % (AUTO) 70 % (42-75); PLATELET COUNT 185 x10^3/uL (130-400); RED BLOOD COUNT 2.46 x10^6/uL (4.38-5.82); RED CELL DISTRIBUTION WIDTH 17.3 % (9.4-14.8)
[2020-04-08 05:42] LABS: ALBUMIN 2.5 g/dL (3.4-5.0); ANION GAP 5 mmol/L (5-15); CALCIUM 8.7 mg/dL (8.5-10.1); CHLORIDE 105 mmol/L (98-107)
[2020-04-08 06:39] LABS: ALANINE AMINOTRANSFERASE 15 U/L (12-78); ALKALINE PHOSPHATASE 73 U/L (45-117); BILIRUBIN,TOTAL 1.1 mg/dL (0.2-1.0); CREATININE 1.15 mg/dL (0.7-1.3); TOTAL PROTEIN 6.9 g/dL (6.4-8.2)
[2020-04-08] MEDS: RIVAROXABAN 20 MG TABLET PO SCH (09:05)
[2020-04-08] MEDS: CHOLECALCIFEROL 5,000u TAB PO SCH (09:05)
[2020-04-08] MEDS: LACTATED RINGERS 1,000 ML IV SCH (09:06)
[2020-04-08] MEDS ORDERED: ATEN25TA PO (09:15)
[2020-04-08] MEDS ORDERED: ATENOLOL 25 MG TABLET PO SCH (09:30)
[2020-04-08] MEDS: GABAPENTIN 300 MG CAPSULE PO PRN (09:52)
[2020-04-08] MEDS: LINEZOLID 600 MG TABLET PO SCH (15:37)
[2020-04-08] MEDS: PIPERACILLIN/TAZO/PMX 4.5GM 100 ML IV SCH (15:37)
[2020-04-08] MEDS: ATORVASTATIN 20 MG TABLET PO SCH (20:37)
[2020-04-09 00:10] VITALS: BP 104/67
[2020-04-09] MEDS: PIPERACILLIN/TAZO/PMX 4.5GM 100 ML IV SCH ×3 (00:30→15:54)
[2020-04-09 05:28] VITALS: BP 90/54
[2020-04-09] MEDS: LINEZOLID 600 MG TABLET PO SCH ×2 (05:30→16:59)
[2020-04-09] MEDS: ATENOLOL 25 MG TABLET PO SCH (05:31)
[2020-04-09 05:38] LABS: BASOPHILS % (AUTO) 0 % (0-1); EOSINOPHILS % (AUTO) 1 % (1-7); LYMPHOCYTES % (AUTO) 41 % (22-44); MEAN CORPUSCULAR HEMOGLOBIN 37.6 pg (27.5-34.5); MEAN CORPUSCULAR HGB CONC 34.4 g/dL (33.2-36.2); MONOCYTES % (AUTO) 9 % (2-9); NEUTROPHILS % (AUTO) 49 % (42-75); PLATELET COUNT 181 x10^3/uL (130-400); RED BLOOD COUNT 2.26 x10^6/uL (4.38-5.82)
[2020-04-09 05:43] LABS: ALBUMIN 2.3 g/dL (3.4-5.0); ANION GAP 6 mmol/L (5-15); CALCIUM 8.3 mg/dL (8.5-10.1); CHLORIDE 98 mmol/L (98-107)
[2020-04-09 05:48] LABS: ALANINE AMINOTRANSFERASE 16 U/L (12-78); ALKALINE PHOSPHATASE 79 U/L (45-117); BILIRUBIN,TOTAL 1.6 mg/dL (0.2-1.0); CREATININE 1.03 mg/dL (0.7-1.3); TOTAL PROTEIN 6.4 g/dL (6.4-8.2)
[2020-04-09 06:19] LABS: MD SCAN
[2020-04-09 06:55] VITALS: BP 100/54
[2020-04-09] MEDS ORDERED: LACTATED RINGERS 500 ML IVBOLUS ONE (07:30)
[2020-04-09] MEDS: OXYcodone IR 5MG TABLET PO PRN ×3 (08:53→20:16)
[2020-04-09] MEDS: CHOLECALCIFEROL 5,000u TAB PO SCH (08:53)
[2020-04-09] MEDS: RIVAROXABAN 20 MG TABLET PO SCH (08:53)
[2020-04-09] MEDS: LACTATED RINGERS 1,000 ML IV SCH ×2 (10:19→20:17)
[2020-04-09] MEDS: HYDROmorphone 2 MG/ML, 1ML IVPush PRN ×2 (12:00→21:10)
[2020-04-09 13:39] VITALS: BP 99/65
[2020-04-09 20:06] VITALS: BP 108/73
[2020-04-09] MEDS: ATORVASTATIN 20 MG TABLET PO SCH (20:17)
[2020-04-09] MEDS: GABAPENTIN 300 MG CAPSULE PO PRN (21:10)
[2020-04-10] MEDS: PIPERACILLIN/TAZO/PMX 4.5GM 100 ML IV SCH ×4 (00:18→23:53)
[2020-04-10] MEDS: OXYcodone IR 5MG TABLET PO PRN ×2 (00:19→05:15)
[2020-04-10 03:13] VITALS: BP 90/57
[2020-04-10] MEDS: LINEZOLID 600 MG TABLET PO SCH ×2 (05:15→16:31)
[2020-04-10] MEDS: ATENOLOL 25 MG TABLET PO SCH (05:16)
[2020-04-10 05:24] LABS: BASOPHILS % (AUTO) 0 % (0-1); EOSINOPHILS % (AUTO) 0 % (1-7); LYMPHOCYTES % (AUTO) 26 % (22-44); MEAN CORPUSCULAR HEMOGLOBIN 36.4 pg (27.5-34.5); MEAN CORPUSCULAR HGB CONC 33.3 g/dL (33.2-36.2); MEAN PLATELET VOLUME 7.4 fL (7.4-10.4); MONOCYTES % (AUTO) 9 % (2-9); NEUTROPHILS % (AUTO) 65 % (42-75); PLATELET COUNT 195 x10^3/uL (130-400); RED BLOOD COUNT 2.44 x10^6/uL (4.38-5.82); RED CELL DISTRIBUTION WIDTH 16.9 % (9.4-14.8)
[2020-04-10 05:29] LABS: ALANINE AMINOTRANSFERASE 17 U/L (12-78); ALBUMIN 2.3 g/dL (3.4-5.0); ANION GAP 4 mmol/L (5-15); CHLORIDE 105 mmol/L (98-107); CREATININE 1.14 mg/dL (0.7-1.3)
[2020-04-10 05:31] LABS: ALKALINE PHOSPHATASE 74 U/L (45-117); BILIRUBIN,TOTAL 0.8 mg/dL (0.2-1.0); TOTAL PROTEIN 7.2 g/dL (6.4-8.2)
[2020-04-10 05:42] LABS: MD NO
[2020-04-10] MEDS: LACTATED RINGERS 1,000 ML IV SCH ×2 (06:04→16:00)
[2020-04-10 06:39] VITALS: BP 105/67
[2020-04-10] MEDS ORDERED: DIPHENHYDRAMINE 50 MG/ML, 1ML ONE (06:56)
[2020-04-10] MEDS: CHOLECALCIFEROL 5,000u TAB PO SCH (08:09)
[2020-04-10] MEDS: RIVAROXABAN 20 MG TABLET PO SCH (08:09)
[2020-04-10] MEDS: HYDROmorphone 2 MG/ML, 1ML IVPush PRN ×5 (08:13→23:28)
[2020-04-10] MEDS ORDERED: OXYcodone IR 5MG TABLET PO PRN (10:00)
[2020-04-10 14:03] VITALS: BP 116/80
[2020-04-10 19:29] VITALS: BP 117/79
[2020-04-10] MEDS: ATORVASTATIN 20 MG TABLET PO SCH (20:10)
[2020-04-11 02:16] VITALS: BP 119/75
[2020-04-11] MEDS: HYDROmorphone 2 MG/ML, 1ML IVPush PRN ×4 (02:46→13:06)
[2020-04-11] MEDS: LACTATED RINGERS 1,000 ML IV SCH ×2 (02:46→11:02)
[2020-04-11 05:31] LABS: BASOPHILS % (AUTO) 0 % (0-1); EOSINOPHILS % (AUTO) 0 % (1-7); LYMPHOCYTES % (AUTO) 41 % (22-44); MEAN CORPUSCULAR HEMOGLOBIN 37.6 pg (27.5-34.5); MEAN CORPUSCULAR HGB CONC 34.2 g/dL (33.2-36.2); MEAN PLATELET VOLUME 7.6 fL (7.4-10.4); MONOCYTES % (AUTO) 9 % (2-9); NEUTROPHILS % (AUTO) 49 % (42-75); PLATELET COUNT 213 x10^3/uL (130-400); RED BLOOD COUNT 2.29 x10^6/uL (4.38-5.82); RED CELL DISTRIBUTION WIDTH 16.5 % (9.4-14.8)
[2020-04-11 05:38] LABS: ALBUMIN 2.4 g/dL (3.4-5.0); ANION GAP 4 mmol/L (5-15); CALCIUM 8.8 mg/dL (8.5-10.1); CHLORIDE 106 mmol/L (98-107)
[2020-04-11 05:42] LABS: ALANINE AMINOTRANSFERASE 17 U/L (12-78); ALKALINE PHOSPHATASE 60 U/L (45-117); BILIRUBIN,TOTAL 0.5 mg/dL (0.2-1.0); CREATININE 1.01 mg/dL (0.7-1.3); MD NO; TOTAL PROTEIN 7.1 g/dL (6.4-8.2)
[2020-04-11] MEDS: LINEZOLID 600 MG TABLET PO SCH (05:52)
[2020-04-11 05:55] VITALS: BP 117/72
[2020-04-11] MEDS: ATENOLOL 25 MG TABLET PO SCH (05:56)
[2020-04-11 07:32] VITALS: BP 103/76
[2020-04-11] MEDS: CHOLECALCIFEROL 5,000u TAB PO SCH (08:06)
[2020-04-11] MEDS: RIVAROXABAN 20 MG TABLET PO SCH (08:06)
[2020-04-11] MEDS: PIPERACILLIN/TAZO/PMX 4.5GM 100 ML IV SCH ×2 (08:06→16:00)
[2020-04-11 13:18] VITALS: BP 100/67
[2020-04-11] MEDS ORDERED: ATEN25TA PO ×2 (13:42)
[2020-04-11] MEDS ORDERED: ATOR20TA37 PO (13:42)
[2020-04-11] MEDS ORDERED: DOCU100C33 PO (13:42)
[2020-04-11] MEDS ORDERED: RIVA20TA PO (13:42)
[2020-04-11] MEDS ORDERED: PRED10TA PO (13:42)
[2020-04-11] MEDS ORDERED: ERTAPENEM 1 GM in SODIUM CHLORIDE 0.9% 50 ML IV SCH (16:30)
== END 2020-04-11 21:53 | disposition home or self-care (01) | DRG 223 ==
LOC: ED 11:13 → EDIP 14:51 → SUATTDRO 14:53 → 4NE 18:16
PROVIDERS: ADMIT Internal Medicine; ATTEND Hospitalist
PROC: 0D9P0ZZ Drainage of Rectum, Open Approach (ICD-10-PCS; principal; 2020-04-07 15:30)
PROC: 02HV33Z Insertion of Infusion Device into Superior Vena Cava, Percutaneous Approach (ICD-10-PCS; 2020-04-11)
PROC: B5181ZA Fluoroscopy of Superior Vena Cava using Low Osmolar Contrast, Guidance (ICD-10-PCS; 2020-04-11)
PROC: B548ZZA Ultrasonography of Superior Vena Cava, Guidance (ICD-10-PCS; 2020-04-11)
DX: K61.1 Rectal abscess (principal); L02.31 Cutaneous abscess of buttock; K62.89 Other specified diseases of anus and rectum; Z79.52 Long term (current) use of systemic steroids; Z79.899 Other long term (current) drug therapy; Z86.73 Personal history of transient ischemic attack (TIA), and cerebral infarction without residual deficits; Z87.891 Personal history of nicotine dependence; M35.2 Behcet's disease; I10 Essential (primary) hypertension; G43.909 Migraine, unspecified, not intractable, without status migrainosus; F11.10 Opioid abuse, uncomplicated; E78.5 Hyperlipidemia, unspecified; E43 Unspecified severe protein-calorie malnutrition; E11.51 Type 2 diabetes mellitus with diabetic peripheral angiopathy without gangrene; D63.8 Anemia in other chronic diseases classified elsewhere; D84.9 Immunodeficiency, unspecified; E87.2 Acidosis; F12.90 Cannabis use, unspecified, uncomplicated; Z88.5 Allergy status to narcotic agent; Z88.8 Allergy status to other drugs, medicaments and biological substances; Z68.23 Body mass index [BMI] 23.0-23.9, adult; Z20.828 Contact with and (suspected) exposure to other viral communicable diseases
CPT/HCPCS: 36415; 36573; 71045; 72193; 80048; 80053; 82040; 83605; 83735; 84100; 84145; 85025; 87040; 87070; 87075; 87205; 87635; 96374; 99285; G0378; J0171; J1170; J1335; J2250; J2405; J2543; J2704; J3010; J3370; J7120; Q0162; Q9967; C1751; J0295; J0330; J1720; J7050; J7512

== ENCOUNTER 2020-04-12 13:41 | Emergency (ER) | payer MEDICAID ==
[~2020-04-12] VITALS: Ht 177.8 cm; Wt 82.0 kg
[~2020-04-12 13:41] MED LIST changes: +DOCU100C33 PO
--- NOTE | 2020-04-12 14:19 | NUR ---
LABS COLLECTED FROM PICC LINE. IVF RUNNING. PT ATTEMPTED TO PROVIDE URINE SAMPLE WITHOUT SUCCESS. PT RESTING ON ROWDY. JORGE. CALL LIGHT IN REACH.
[2020-04-12 14:41] LABS: MEAN CORPUSCULAR HEMOGLOBIN 37.7 pg (27.5-34.5); MEAN CORPUSCULAR HGB CONC 34.3 g/dL (33.2-36.2); MEAN PLATELET VOLUME 7.4 fL (7.4-10.4); PLATELET COUNT 274 x10^3/uL (130-400); RED BLOOD COUNT 2.33 x10^6/uL (4.38-5.82); RED CELL DISTRIBUTION WIDTH 16.5 % (9.4-14.8)
[2020-04-12 14:47] LABS: ALANINE AMINOTRANSFERASE 18 U/L (12-78); ALBUMIN 2.4 g/dL (3.4-5.0); ANION GAP 6 mmol/L (5-15); CALCIUM 8.6 mg/dL (8.5-10.1); CHLORIDE 111 mmol/L (98-107); CREATININE 0.81 mg/dL (0.7-1.3)
[2020-04-12 14:50] LABS: ALKALINE PHOSPHATASE 58 U/L (45-117); BILIRUBIN,TOTAL 0.5 mg/dL (0.2-1.0); TOTAL PROTEIN 7.1 g/dL (6.4-8.2)
[2020-04-12] MEDS ORDERED: SODIUM CHLORIDE 0.9% 1,000ML IVBOLUS ONE (15:00)
[2020-04-12] MEDS ORDERED: SODIUM CHLORIDE FLUSH 10ML SYR IVF ONE (15:00)
--- NOTE | 2020-04-12 15:13 | NUR ---
PT PROVIDE URINE SAMPLE. UA COLLECTED AND SENT TO LAB.
[2020-04-12] MEDS ORDERED: ERTAPENEM 1 GM in SODIUM CHLORIDE 0.9% 50 ML IV ONE (15:30)
[2020-04-12 15:41] LABS: MICROSCOPIC NOT IND
[2020-04-12 15:42] LABS: MD YES
--- NOTE | 2020-04-12 15:43 | NUR ---
REQUESTED MED FROM PHARMACY. SPOKE WITH GAS CUTTER, PT IS TO HAVE INVANZ 1GM INFUSION TODAY. TOMORROW INFUSION TIME 1430. DEA NOTIFIED, ORDER RECEIVED FOR INVANZ INFUSION PRIOR TO DC.
[2020-04-12 16:11] LABS: LYMPH#(MANUAL) 3.95 x10^3/uL (1-3.4); LYMPHS% (MANUAL) 52 % (22-44); MONOS#(MANUAL) 0.38 x10^3/uL (0.3-2.7); MONOS% (MANUAL) 5 % (2-9); REACTIVE LYMPHS # (MANUAL) 0.46 x10^3/uL (0-0); REACTIVE LYMPHS % (MANUAL) 6 % (0-0); SEG#(MANUAL) 2.81 x10^3/uL (1.8-6.8); SEGS% (MANUAL) 37 % (42-75)
[2020-04-12 16:12] LABS: <PLATELET ESTIMATE> ADEQUATE; <PLT MORPHOLOGY> NORMAL PLT MORPH; <RBC MORPHOLOGY> NORMAL; TOXIC GRAN 1+
--- NOTE | 2020-04-12 16:46 | NUR ---
RECEIVED MED FROM PHARMACY. IV INFUSING.
[2020-04-12 17:17] VITALS: BP 123/70
--- NOTE | 2020-04-12 17:19 | NUR ---
PT REMINDED OF INFUSION APPT TOMORROW 1430.
== END 2020-04-12 17:20 | disposition home or self-care (01) ==
LOC: ED 14:06
DX: M79.10 Myalgia, unspecified site (principal); Z20.828 Contact with and (suspected) exposure to other viral communicable diseases; R06.02 Shortness of breath; R50.9 Fever, unspecified; R19.7 Diarrhea, unspecified; I10 Essential (primary) hypertension; E11.9 Type 2 diabetes mellitus without complications; I25.10 Atherosclerotic heart disease of native coronary artery without angina pectoris; E78.5 Hyperlipidemia, unspecified; Z86.73 Personal history of transient ischemic attack (TIA), and cerebral infarction without residual deficits; Z90.89 Acquired absence of other organs; Z87.891 Personal history of nicotine dependence
CPT/HCPCS: 36415; 71045; 80053; 81003; 83605; 84145; 85025; 87635; 96361; 96374; 99284; J1335; J7030

== ENCOUNTER 2020-04-15 16:07 | Emergency (ER) | payer MEDICAID ==
[~2020-04-15] VITALS: Ht 177.8 cm; Wt 68.5 kg
[2020-04-15] MEDS ORDERED: SODIUM CHLORIDE 0.9% 1,000ML IVBOLUS ONE (17:00)
--- NOTE | 2020-04-15 17:22 | NUR ---
PT WAS TOLD BY POLICE TO COME TO HOSPITAL BECAUSE HE HAS MISSED HIS INFUSIONS FOR CYST ON BUTTICKS. PT FEELS WEK. PT'S PAIN IS 8/10. PT DENIES ANY OTHER COMPLAINTS. PT HAS CYST ON RIGHT BUUTTOCK. WOUND PAD PLACED OVER CYST.
--- NOTE | 2020-04-15 17:26 | NUR ---
CULUTRES TAKEN FROM PICC LINE IN THE LEFT ARM. PICC LINE HUB REPLACED AFTER CULTURES DRAWN. CULTURES SENT TO LAB.
--- NOTE | 2020-04-15 17:45 | NUR ---
PHARMACY TUBED FOR ANTIBIOTIC
[2020-04-15] MEDS ORDERED: ERTAPENEM 1 GM in SODIUM CHLORIDE 0.9% 50 ML IV ONE (18:00)
[2020-04-15 18:05] LABS: MEAN CORPUSCULAR HEMOGLOBIN 37.4 pg (27.5-34.5); MEAN CORPUSCULAR HGB CONC 34.1 g/dL (33.2-36.2); MEAN PLATELET VOLUME 7.3 fL (7.4-10.4); PLATELET COUNT 334 x10^3/uL (130-400); RED BLOOD COUNT 2.54 x10^6/uL (4.38-5.82); RED CELL DISTRIBUTION WIDTH 16.6 % (9.4-14.8)
[2020-04-15 18:09] LABS: MD YES
[2020-04-15 18:14] LABS: ALANINE AMINOTRANSFERASE 18 U/L (12-78); ALBUMIN 2.6 g/dL (3.4-5.0); ANION GAP 4 mmol/L (5-15); CALCIUM 9.1 mg/dL (8.5-10.1); CHLORIDE 110 mmol/L (98-107)
[2020-04-15 18:17] LABS: ALKALINE PHOSPHATASE 58 U/L (45-117); BILIRUBIN,TOTAL 0.3 mg/dL (0.2-1.0); CREATININE 1.23 mg/dL (0.7-1.3); TOTAL PROTEIN 8.1 g/dL (6.4-8.2)
[2020-04-15] MEDS ORDERED: HYDROcodone/APAP 5/325 TABLET ONE (18:52)
[2020-04-15] MEDS ORDERED: HYDROcodone/APAP 5/325 TABLET PO ONE (19:00)
--- NOTE | 2020-04-15 19:11 | NUR ---
REPORT RECEIVED FROM DIAZ ZEE
[2020-04-15 19:18] LABS: BASOS#(MANUAL) 0.06 x10^3/uL (0-0.1); BASOS% (MANUAL) 1 % (0-1); EOS#(MANUAL) 0.06 x10^3/uL (0.0-0.4); EOS% (MANUAL) 1 % (1-7); LYMPH#(MANUAL) 3.31 x10^3/uL (1-3.4); LYMPHS% (MANUAL) 58 % (22-44); MONOS#(MANUAL) 0.46 x10^3/uL (0.3-2.7); MONOS% (MANUAL) 8 % (2-9); SEG#(MANUAL) 1.82 x10^3/uL (1.8-6.8); SEGS% (MANUAL) 32 % (42-75)
[2020-04-15 19:23] LABS: POLYCHROMASIA 1+
[2020-04-15 19:25] LABS: <PLATELET ESTIMATE> ADEQUATE; <PLT MORPHOLOGY> NORMAL PLT MORPH
[2020-04-15 20:42] VITALS: BP 111/72
== END 2020-04-15 20:46 | disposition home or self-care (01) ==
LOC: ED 18:16
DX: R53.83 Other fatigue (principal); I10 Essential (primary) hypertension; E11.9 Type 2 diabetes mellitus without complications; R00.0 Tachycardia, unspecified; E78.5 Hyperlipidemia, unspecified; Z45.2 Encounter for adjustment and management of vascular access device; Z90.89 Acquired absence of other organs; Z86.73 Personal history of transient ischemic attack (TIA), and cerebral infarction without residual deficits; Z87.891 Personal history of nicotine dependence
CPT/HCPCS: 36415; 80053; 85025; 87040; 93005; 96361; 96365; 99284; J1335; J7030

== ENCOUNTER 2020-07-02 01:50 | Emergency (ER) | payer MEDICAID, OTHER ==
[~2020-07-02] VITALS: Ht 177.8 cm; Wt 76.4 kg
[~2020-07-02 01:50] MED LIST changes: -CYCL-259 PO; +CYCL10TA2 PO; -OXYC-302 PO; +OXYC1TAB14 PO; -OXYC5TAB3 PO; +OXYC5TAB98 PO
[2020-07-02 01:54] VITALS: BP 133/83
[2020-07-02] MEDS ORDERED: MORPHINE SULFATE 4 MG/ML, 1ML IVPush PRN (02:30)
[2020-07-02] MEDS ORDERED: SODIUM CHLORIDE FLUSH 10ML SYR IVF ONE (02:30)
[2020-07-02] MEDS ORDERED: SODIUM CHLORIDE 0.9% 1,000ML IVBOLUS ONE (02:30)
[2020-07-02] MEDS ORDERED: ONDANSETRON 2MG/ML, 2ML IVPush ONE (02:30)
[2020-07-02] MEDS ORDERED: MORPHINE SULFATE 4 MG/ML, 1ML ONE (02:48)
[2020-07-02] MEDS ORDERED: ONDANSETRON 2MG/ML, 2ML ONE (02:48)
--- NOTE | 2020-07-02 03:14 | NUR ---
REPORT BACK FROM YAYO FLORES TO RE-ASSUME CARE OF PT. AFTER LUNCH. PER MARK IV BLEW AFTER 150ML OF NS AND SHEET SORTER. MULTIPLE RE-ATTEMPTS AT IV BY YAYO FLORES FAILED.
--- NOTE | 2020-07-02 03:49 | NUR ---
X-RAY COMPLETED. WILL UPDATE MD ABOUT INABILITY TO OBTAIN IV ACCESS.
[2020-07-02] MEDS ORDERED: HYDROcodone/APAP 5/325 TABLET ONE (03:57)
[2020-07-02] MEDS ORDERED: HYDROcodone/APAP 5/325 TABLET PO ONE (04:00)
--- NOTE | 2020-07-02 04:03 | NUR ---
Assist RN: medicated patient per mar. Patient tbdc.
== END 2020-07-02 04:42 | disposition home or self-care (01) ==
LOC: ED 02:20
DX: S46.912A Strain of unspecified muscle, fascia and tendon at shoulder and upper arm level, left arm, initial encounter (principal); I10 Essential (primary) hypertension; E78.5 Hyperlipidemia, unspecified; G43.909 Migraine, unspecified, not intractable, without status migrainosus; Z90.89 Acquired absence of other organs; X58.XXXA Exposure to other specified factors, initial encounter; Y93.89 Activity, other specified; Y92.89 Other specified places as the place of occurrence of the external cause; Y99.8 Other external cause status
CPT/HCPCS: 73030; 96361; 96374; 96375; 99284; J2270; J2405; J7030

== ENCOUNTER 2020-09-16 13:21 | Emergency (ER) | payer MEDICAID, OTHER ==
[~2020-09-16] VITALS: Ht 177.8 cm; Wt 71.0 kg
[2020-09-16 14:11] LABS: BASOPHILS % (AUTO) 1 % (0-1); EOSINOPHILS % (AUTO) 0 % (1-7); LYMPHOCYTES % (AUTO) 28 % (22-44); MEAN CORPUSCULAR HEMOGLOBIN 37.3 pg (27.5-34.5); MEAN CORPUSCULAR HGB CONC 33.8 g/dL (33.2-36.2); MEAN PLATELET VOLUME 6.7 fL (7.4-10.4); MONOCYTES % (AUTO) 3 % (2-9); NEUTROPHILS % (AUTO) 68 % (42-75); PLATELET COUNT 224 x10^3/uL (130-400); RED BLOOD COUNT 3.17 x10^6/uL (4.38-5.82); RED CELL DISTRIBUTION WIDTH 18.1 % (9.4-14.8)
[2020-09-16 14:22] LABS: ALBUMIN 3.5 g/dL (3.4-5.0); ANION GAP 4 mmol/L (5-15); CALCIUM 9.1 mg/dL (8.5-10.1); CHLORIDE 110 mmol/L (98-107); CREATININE 1.06 mg/dL (0.7-1.3)
[2020-09-16 14:26] LABS: TROPONIN I < 0.015 ng/mL (0.000-0.045)
[2020-09-16 14:32] LABS: MD MORPH REVIEW ONLY
[2020-09-16 14:33] LABS: ANISOCYTOSIS 1+
[2020-09-16 14:34] LABS: <PLATELET ESTIMATE> ADEQUATE; <PLT MORPHOLOGY> NORMAL PLT MORPH; OVALOCYTES 1+
[2020-09-16 15:34] VITALS: BP 130/73
--- NOTE | 2020-09-16 17:44 | NUR ---
PT REC'D D/C INST FROM ER PROVIDER. PT DID NOT WAIT FOR PRINTED DOCUMENTS
== END 2020-09-16 17:45 | disposition home or self-care (01) ==
LOC: ED 15:46
DX: S20.212A Contusion of left front wall of thorax, initial encounter (principal); R07.81 Pleurodynia; I10 Essential (primary) hypertension; E11.9 Type 2 diabetes mellitus without complications; G43.909 Migraine, unspecified, not intractable, without status migrainosus; E78.5 Hyperlipidemia, unspecified; F17.200 Nicotine dependence, unspecified, uncomplicated; W01.0XXA Fall on same level from slipping, tripping and stumbling without subsequent striking against object, initial encounter; Y93.89 Activity, other specified; Y92.830 Public park as the place of occurrence of the external cause; Y99.8 Other external cause status
CPT/HCPCS: 36415; 71045; 80048; 82040; 83880; 84484; 85025; 85379; 93005; 99285

== ENCOUNTER 2021-01-01 11:01 | Emergency (ER) | payer MEDICAID ==
[~2021-01-01 11:01] MED LIST changes: +OXYC1TAB12 PO; -OXYC1TAB14 PO
[2021-01-01 11:16] VITALS: BP 92/68
[2021-01-01] MEDS ORDERED: ASPIRIN 81 MG TABLET CHEW PO ONE (11:30)
[2021-01-01] MEDS ORDERED: ASPIRIN 81 MG TABLET CHEW ONE (12:07)
[2021-01-01 12:10] LABS: ALANINE AMINOTRANSFERASE 23 U/L (12-78); ALBUMIN 3.2 g/dL (3.4-5.0); ANION GAP 7 mmol/L (5-15); CALCIUM 8.9 mg/dL (8.5-10.1); CHLORIDE 110 mmol/L (98-107)
[2021-01-01 12:13] LABS: BASOPHILS % (AUTO) 1 % (0-1); EOSINOPHILS % (AUTO) 1 % (1-7); LYMPHOCYTES % (AUTO) 36 % (22-44); MEAN CORPUSCULAR HEMOGLOBIN 38.3 pg (27.5-34.5); MEAN CORPUSCULAR HGB CONC 33.6 g/dL (33.2-36.2); MEAN PLATELET VOLUME 7.5 fL (7.4-10.4); MONOCYTES % (AUTO) 7 % (2-9); NEUTROPHILS % (AUTO) 56 % (42-75); PLATELET COUNT 254 x10^3/uL (130-400); RED BLOOD COUNT 2.99 x10^6/uL (4.38-5.82); RED CELL DISTRIBUTION WIDTH 16.4 % (9.4-14.8)
[2021-01-01 12:15] LABS: ALKALINE PHOSPHATASE 64 U/L (45-117); BILIRUBIN,TOTAL 0.5 mg/dL (0.2-1.0); CREATININE 1.05 mg/dL (0.7-1.3); TOTAL PROTEIN 7.8 g/dL (6.4-8.2); TROPONIN I < 0.015 ng/mL (0.000-0.045)
== END 2021-01-01 12:52 | disposition left against medical advice (07) ==
LOC: ED 12:00
DX: R55 Syncope and collapse (principal); R07.89 Other chest pain; I10 Essential (primary) hypertension; E78.5 Hyperlipidemia, unspecified; Z86.73 Personal history of transient ischemic attack (TIA), and cerebral infarction without residual deficits; Z90.89 Acquired absence of other organs
CPT/HCPCS: 36415; 71045; 80053; 84484; 85025; 93005; 99285